=== PATIENT | female | born 1965 | race Caucasian/White ===

== ENCOUNTER 2022-11-07 09:38 | Day surgery (SDC) | payer OTHER ==
[2022-11-07] MEDS ORDERED: Darbepoetin Alfa in Polysorbat 25 MCG/0.4 ML DISP.SYRIN SQ ONE (10:15)
[2022-11-07 15:31] VITALS: BP 105/34; PULSE 77; RESP 20; TEMP 98.2
== END 2022-11-07 10:35 | disposition home or self-care (01) ==
LOC: JONCNONCHE 09:38
PROVIDERS: ATTEND Internal Medicine Hematology & Oncology
PROC: 3E013GC Introduction of Other Therapeutic Substance into Subcutaneous Tissue, Percutaneous Approach (ICD-10-PCS; principal; 2022-11-07)
DX: D64.9 Anemia, unspecified (principal)
CPT/HCPCS: 96372; J0881

== ENCOUNTER 2022-12-08 09:30 | Day surgery (SDC) | payer OTHER ==
[2022-12-08] MEDS ORDERED: Darbepoetin Alfa in Polysorbat 25 MCG/0.4 ML DISP.SYRIN SQ ONE (10:00)
[2022-12-08 16:40] VITALS: BP 114/31; PULSE 78; RESP 18; TEMP 98.2
== END 2022-12-08 10:30 | disposition home or self-care (01) ==
LOC: JONCNONCHE 09:30 → J7W 09:32 → JONCNONCHE 10:30
PROVIDERS: ATTEND Internal Medicine Hematology & Oncology
PROC: 3E013GC Introduction of Other Therapeutic Substance into Subcutaneous Tissue, Percutaneous Approach (ICD-10-PCS; principal; 2022-12-08)
DX: D64.9 Anemia, unspecified (principal); D50.9 Iron deficiency anemia, unspecified
CPT/HCPCS: 96372; J0881

== ENCOUNTER 2023-01-09 08:51 | Day surgery (SDC) | payer OTHER ==
[2023-01-09] MEDS ORDERED: Darbepoetin Alfa in Polysorbat 25 MCG/0.4 ML DISP.SYRIN SQ ONE (09:00)
[2023-01-09 15:55] VITALS: BP 125/65; PULSE 77; RESP 18; TEMP 98.4
== END 2023-01-09 09:35 | disposition home or self-care (01) ==
LOC: JONCNONCHE 08:51 → J7W 08:52 → JONCNONCHE 09:35
PROVIDERS: ATTEND Internal Medicine Hematology & Oncology
PROC: 3E013GC Introduction of Other Therapeutic Substance into Subcutaneous Tissue, Percutaneous Approach (ICD-10-PCS; principal; 2023-01-09)
DX: D50.8 Other iron deficiency anemias (principal)
CPT/HCPCS: 96372; J0881

== ENCOUNTER 2023-02-07 11:28 | Day surgery (SDC) | payer OTHER ==
[~2023-02-07 11:28] MED LIST: Darbepoetin Alfa in Polysorbat 25 MCG/0.4 ML DISP.SYRIN SQ ONE
[2023-02-07 15:23] VITALS: BP 111/54; PULSE 87; RESP 20; TEMP 98.5
== END 2023-02-07 12:15 | disposition home or self-care (01) ==
LOC: JONCNONCHE 11:28 → J7W 11:29 → JONCNONCHE 12:15
PROVIDERS: ATTEND Internal Medicine Hematology & Oncology
PROC: 3E013GC Introduction of Other Therapeutic Substance into Subcutaneous Tissue, Percutaneous Approach (ICD-10-PCS; principal; 2023-02-07)
DX: D64.89 Other specified anemias (principal); Z76.89 Persons encountering health services in other specified circumstances
CPT/HCPCS: 96372; J0881

== ENCOUNTER 2023-03-14 10:06 | Day surgery (SDC) | payer OTHER ==
[2023-03-14] MEDS ORDERED: Darbepoetin Alfa in Polysorbat 25 MCG/0.4 ML DISP.SYRIN SQ ONE (11:00)
[2023-03-14 14:37] VITALS: BP 119/65; PULSE 94; RESP 20; TEMP 98.3
== END 2023-03-14 11:30 | disposition home or self-care (01) ==
LOC: JONCNONCHE 10:06 → J7W 10:20 → JONCNONCHE 11:30
PROVIDERS: ATTEND Internal Medicine Hematology & Oncology
PROC: 3E013GC Introduction of Other Therapeutic Substance into Subcutaneous Tissue, Percutaneous Approach (ICD-10-PCS; principal; 2023-03-14)
DX: D64.9 Anemia, unspecified (principal); Z76.89 Persons encountering health services in other specified circumstances
CPT/HCPCS: 96372; J0881

== ENCOUNTER 2023-04-11 08:51 | Day surgery (SDC) | payer OTHER ==
[2023-04-11] MEDS ORDERED: Darbepoetin Alfa in Polysorbat 25 MCG/0.4 ML DISP.SYRIN SQ ONE (10:15)
[2023-04-11 14:31] VITALS: BP 123/64; PULSE 89; RESP 18; TEMP 98.4
== END 2023-04-11 10:30 | disposition home or self-care (01) ==
LOC: JONCNONCHE 08:51 → J7W 08:52 → JONCNONCHE 10:30
PROVIDERS: ATTEND Internal Medicine Hematology & Oncology
PROC: 3E013GC Introduction of Other Therapeutic Substance into Subcutaneous Tissue, Percutaneous Approach (ICD-10-PCS; principal; 2023-04-11)
DX: D50.9 Iron deficiency anemia, unspecified (principal)
CPT/HCPCS: 96372; J0881

== ENCOUNTER 2023-04-18 09:31 | Day surgery (SDC) | payer OTHER ==
[2023-04-18] MEDS ORDERED: GRANISETRON HCL 1 MG TABLET PO ONE (10:00)
[2023-04-18] MEDS ORDERED: BORTEZOMIB 2.5 MG/ML SUB-Q INJECTION SQ ONE (10:30)
[2023-04-18 10:33] LABS: BASO % 0.6 % (0-2.0); EOS % 1.2 % (0-4.5); HEMATOCRIT 22.4 % (32.4-45.2); HEMOGLOBIN 7.4 GM/dL (10.7-15.3); LYMPH % 30.6 % (8-40); MCH 31.3 pg (25.7-33.7); MCHC 33.2 g/dl (32.0-36.0); MEAN CELL VOLUME 94.3 fl (80-96); MEAN PLT VOLUME 7.4 fl (7.5-11.1); NEUT % 58.6 % (42.8-82.8); PLATELET COUNT 397 10^3/uL (134-434); RBC 2.38 M/mm3 (3.60-5.2); RDW 14.8 % (11.6-15.6); WHITE BLOOD COUNT 5.4 K/mm3 (4.0-10.0)
[2023-04-18 10:50] LABS: POTASSIUM 4.2 mmol/L (3.5-5.1)
[2023-04-18 10:51] LABS: CALCIUM 8.8 mg/dL (8.5-10.1)
[2023-04-18 10:52] LABS: ALBUMIN 2.7 g/dl (3.4-5.0); BLOOD UREA NITROGEN 24.4 mg/dL (7-18)
[2023-04-18 10:54] LABS: BILIRUBIN,DIRECT 0.2 mg/dL (0.0-0.2)
[2023-04-18 10:56] LABS: BILIRUBIN,TOTAL 0.4 mg/dL (0.2-1)
[2023-04-18 17:11] VITALS: BP 106/56; PULSE 99; RESP 18; TEMP 98.2
[2023-04-19 18:12] LABS: FREE KAPPA,SERUM 13.6 mg/L (3.3-19.4)
== END 2023-04-18 12:00 | disposition home or self-care (01) ==
LOC: JONCCHEMO 09:31 → J7W 09:32 → JONCCHEMO 12:00
PROVIDERS: ATTEND Internal Medicine Hematology & Oncology
PROC: 3E033GC Introduction of Other Therapeutic Substance into Peripheral Vein, Percutaneous Approach (ICD-10-PCS; principal; 2023-04-18)
DX: D50.8 Other iron deficiency anemias (principal)
CPT/HCPCS: 36415; 80048; 80076; 82784; 83883; 84155; 84165; 85025; 96365; J9041

== ENCOUNTER 2023-05-02 09:22 | Day surgery (SDC) | payer OTHER ==
[2023-05-02] MEDS ORDERED: BORTEZOMIB 2.5 MG/ML SUB-Q INJECTION SQ ONE (10:00)
[2023-05-02] MEDS ORDERED: GRANISETRON HCL 1 MG TABLET PO ONE (10:00)
[2023-05-02 10:22] LABS: BASO % 0.5 % (0-2.0); EOS % 1.9 % (0-4.5); HEMATOCRIT 20.7 % (32.4-45.2); LYMPH % 25.1 % (8-40); MCH 31.8 pg (25.7-33.7); MCHC 32.5 g/dl (32.0-36.0); MEAN CELL VOLUME 97.9 fl (80-96); MEAN PLT VOLUME 7.4 fl (7.5-11.1); MONO % 9.4 % (3.8-10.2); NEUT % 63.1 % (42.8-82.8); PLATELET COUNT 285 10^3/uL (134-434); RBC 2.11 M/mm3 (3.60-5.2); RDW 15.4 % (11.6-15.6); WHITE BLOOD COUNT 4.5 K/mm3 (4.0-10.0)
[2023-05-02 10:28] LABS: HEMOGLOBIN 6.7 GM/dL (10.7-15.3)
[2023-05-02 10:42] LABS: POTASSIUM 5.7 mmol/L (3.5-5.1)
[2023-05-02 10:44] LABS: ALBUMIN 2.3 g/dl (3.4-5.0); CALCIUM 8.4 mg/dL (8.5-10.1)
[2023-05-02 10:47] LABS: BILIRUBIN,DIRECT 0.1 mg/dL (0.0-0.2); CREATININE 3.3 mg/dL (0.55-1.3)
[2023-05-02 10:49] LABS: BILIRUBIN,TOTAL 0.6 mg/dL (0.2-1); TOT PROT 5.1 g/dl (6.4-8.2)
[2023-05-02] MEDS ORDERED: DEXAMETHASONE 4 MG TABLET (FP) PO ONE (12:15)
[2023-05-02 14:56] VITALS: BP 110/56; PULSE 87; RESP 18; TEMP 98.1
[2023-05-04 07:08] LABS: FREE KAP CHN UR 39.42 mg/L (1.17-86.46)
== END 2023-05-02 13:00 | disposition home or self-care (01) ==
LOC: JONCCHEMO 09:22 → J7W 09:28 → JONCCHEMO 13:00
PROVIDERS: ATTEND Internal Medicine Hematology & Oncology
DX: Z51.11 Encounter for antineoplastic chemotherapy (principal); C90.00 Multiple myeloma not having achieved remission
CPT/HCPCS: 36415; 80048; 80076; 82784; 83883; 84155; 84165; 85025; 96401; J9041

== ENCOUNTER 2023-05-02 12:53 | Inpatient (IN) | payer OTHER ==
[2023-05-02 14:51] LABS: BASO % 0.4 % (0-2.0); EOS % 1.2 % (0-4.5); HEMATOCRIT 22.8 % (32.4-45.2); HEMOGLOBIN 7.5 GM/dL (10.7-15.3); LYMPH % 18.6 % (8-40); MCH 31.5 pg (25.7-33.7); MCHC 32.9 g/dl (32.0-36.0); MEAN CELL VOLUME 95.8 fl (80-96); MEAN PLT VOLUME 7.8 fl (7.5-11.1); MONO % 4.1 % (3.8-10.2); NEUT % 75.7 % (42.8-82.8); PLATELET COUNT 277 10^3/uL (134-434); RBC 2.38 M/mm3 (3.60-5.2); RDW 15.6 % (11.6-15.6); WHITE BLOOD COUNT 3.8 K/mm3 (4.0-10.0)
[2023-05-02 14:56] LABS: INR 1.03 (0.83-1.09)
[2023-05-02 14:59] LABS: ACTIVATED PTT 29.4 SECONDS (25.2-36.5)
[2023-05-02 15:30] LABS: CHLORIDE 109 mmol/L (98-107); SODIUM 138 mmol/L (136-145)
[2023-05-02 15:32] LABS: ALBUMIN 2.4 g/dl (3.4-5.0); CALCIUM 8.4 mg/dL (8.5-10.1); GLUCOSE,RANDOM 98 mg/dL (74-106)
[2023-05-02 15:33] LABS: BLOOD UREA NITROGEN 55.2 mg/dL (7-18); CO2 21 mmol/L (21-32); MAGNESIUM 2.9 mg/dL (1.8-2.4)
[2023-05-02 15:35] LABS: CREATININE 3.5 mg/dL (0.55-1.3); SGPT/ALT 23 U/L (13-61)
[2023-05-02 15:36] LABS: SGOT/AST 26 U/L (15-37)
[2023-05-02 15:37] LABS: BILIRUBIN,TOTAL 0.6 mg/dL (0.2-1); TOT PROT 5.6 g/dl (6.4-8.2)
[2023-05-02 15:38] LABS: ALK PHOS 268 U/L (45-117)
[2023-05-02 15:46] LABS: ANION GAP 8 mmol/L (4-13); POTASSIUM 6.1 mmol/L (3.5-5.1)
[2023-05-02] MEDS ORDERED: CALCIUM GLUCONATE 10% - 1,000 MG/10 ML VIAL IVPUSH ONE ×2 (15:55→18:39)
[2023-05-02] MEDS ORDERED: DEXTROSE 50%-WATER - 25 GM/50 ML VIAL IVPUSH ONE ×3 (15:56→22:24)
[2023-05-02] MEDS ORDERED: INSULIN REGULAR HUMAN 100 UNITS/ML *VIAL IVPUSH ONE ×3 (15:57→22:23)
[2023-05-02] MEDS ORDERED: SODIUM ZIRCONIUM CYCLOSILICATE (LOKELMA) 5 GM PACKET PO ONE ×3 (15:58→23:45)
[2023-05-02 16:52] LABS: EPI CELLS 32 /uL (0-25.1); HYALINE CASTS 3 /uL (0-3.1); URINE APPEARANCE CLEAR; URINE BACTERIA 226 /uL (0-1359); URINE BILIRUBIN NEGATIVE (NEGATIVE); URINE COLOR YELLOW; URINE GLUCOSE (UA) NEGATIVE (NEGATIVE); URINE KETONE NEGATIVE (NEGATIVE); URINE LEUK ESTERASE 2+ (NEGATIVE); URINE NITRITE NEGATIVE (NEGATIVE); URINE PROTEIN 1+ (NEGATIVE); URINE RBC 4 /uL (0-23.9); URINE UROBILINOGEN 0.2 mg/dL (0.2-1.0); URINE WBC 30 /uL (0-25.8)
[2023-05-02] MEDS ORDERED: CEFTRIAXONE 1,000 MG in DEXTROSE 5%-WATER - 50 ML IVPB ONE (18:04)
[2023-05-02 18:25] LABS: CHLORIDE 108 mmol/L (98-107); SODIUM 137 mmol/L (136-145)
[2023-05-02 18:26] LABS: CALCIUM 8.4 mg/dL (8.5-10.1)
[2023-05-02 18:27] LABS: BLOOD UREA NITROGEN 56.3 mg/dL (7-18); CO2 21 mmol/L (21-32); GLUCOSE,RANDOM 119 mg/dL (74-106)
[2023-05-02 18:30] LABS: CREATININE 3.5 mg/dL (0.55-1.3)
[2023-05-02 18:34] LABS: ANION GAP 8 mmol/L (4-13); POTASSIUM 6.9 mmol/L (3.5-5.1)
[2023-05-02] MEDS ORDERED: SODIUM CHLORIDE 1,000 ML IV STA (18:39)
[2023-05-02] MEDS ORDERED: SODIUM ZIRCONIUM CYCLOSILICATE (LOKELMA) 10 GM PACKET ONE (18:44)
[2023-05-02] MEDS ORDERED: SODIUM CHLORIDE 0.45% 1,000 ML IV SCH (18:45)
[2023-05-02] MEDS ORDERED: ALBUTEROL SO4 2.5/IPRATROPIUM 0.5 INH SOL 3 ML VIAL.NEB. NEB ONE ×3 (18:52→22:24)
[2023-05-02] MEDS ORDERED: DEXTROSE 50%-WATER 25 GM/50 ML DISP.SYRIN ONE (18:58)
[2023-05-02 21:22] LABS: URIC ACID 8.5 mg/dL (2.6-7.2)
[2023-05-02 21:23] LABS: IRON SERUM 124 ug/dL (50-175)
[2023-05-02 21:24] LABS: TOTAL IRON BINDING CAPACITY 116 ug/dL (250-450)
[2023-05-02 21:50] LABS: URIC ACID 8.4 mg/dL (2.6-7.2)
[2023-05-02 21:55] LABS: POTASSIUM 5.6 mmol/L (3.5-5.1)
[2023-05-02 21:56] LABS: CALCIUM 8.3 mg/dL (8.5-10.1)
[2023-05-02 22:00] LABS: CREATININE 3.7 mg/dL (0.55-1.3)
[2023-05-02 22:24] LABS: RETICULOCYTES 1.25 % (0.5-1.5)
[2023-05-02] MEDS ORDERED: CEFTRIAXONE 1 GM in DEXTROSE 5%-WATER - 50 ML IVPB ONE (22:45)
[2023-05-02] MEDS ORDERED: ACETAMINOPHEN 325 MG TABLET (FP) PO PRN (22:48)
[2023-05-02] MEDS ORDERED: DEXTROSE 50%-WATER 25 GM/50 ML DISP.SYRIN IVPUSH ONE (23:27)
[2023-05-03 07:32] LABS: BASO % 0.1 % (0-2.0); HEMATOCRIT 26.1 % (32.4-45.2); HEMOGLOBIN 8.8 GM/dL (10.7-15.3); LYMPH % 6.2 % (8-40); MCH 31.4 pg (25.7-33.7); MCHC 33.7 g/dl (32.0-36.0); MEAN CELL VOLUME 93.3 fl (80-96); MEAN PLT VOLUME 8.1 fl (7.5-11.1); MONO % 5.5 % (3.8-10.2); NEUT % 88.2 % (42.8-82.8); PLATELET COUNT 212 10^3/uL (134-434); RBC 2.79 M/mm3 (3.60-5.2); RDW 15.3 % (11.6-15.6); WHITE BLOOD COUNT 6.3 K/mm3 (4.0-10.0)
[2023-05-03 07:50] LABS: POTASSIUM 5.4 mmol/L (3.5-5.1)
[2023-05-03 07:54] LABS: BLOOD UREA NITROGEN 56.8 mg/dL (7-18); CALCIUM 7.7 mg/dL (8.5-10.1)
[2023-05-03 07:55] LABS: MAGNESIUM 2.3 mg/dL (1.8-2.4)
[2023-05-03 07:57] LABS: CREATININE 3.7 mg/dL (0.55-1.3); PHOSPHOROUS 4.5 mg/dL (2.5-4.9)
[2023-05-03 08:00] LABS: BILIRUBIN,TOTAL 1.2 mg/dL (0.2-1); TOT PROT 4.7 g/dl (6.4-8.2)
[2023-05-03] MEDS ORDERED: SODIUM ZIRCONIUM CYCLOSILICATE (LOKELMA) 5 GM PACKET PO SCH (10:00)
[2023-05-03] MEDS ORDERED: FLU VACCINE (FLULAVAL) PF 60 MCG/0.5 ML SYRINGE 2023-2024 IM ONE (10:00)
[2023-05-03] MEDS ORDERED: SODIUM CHLORIDE 1,000 ML IV SCH ×2 (11:45→11:58)
[2023-05-03] MEDS ORDERED: FUROSEMIDE 40 MG/4 ML INJECTABLE VIAL IVPUSH ONE (11:59)
[2023-05-03] MEDS: SODIUM ZIRCONIUM CYCLOSILICATE (LOKELMA) 5 GM PACKET PO SCH (15:48)
[2023-05-04 03:44] LABS: EPI CELLS 11 /uL (0-25.1); HYALINE CASTS 1 /uL (0-3.1); PH,URINE 5.5 (5.0-8.0); URINE APPEARANCE CLEAR; URINE BACTERIA 201 /uL (0-1359); URINE BILIRUBIN NEGATIVE (NEGATIVE); URINE COLOR YELLOW; URINE GLUCOSE (UA) NEGATIVE (NEGATIVE); URINE KETONE NEGATIVE (NEGATIVE); URINE LEUK ESTERASE 1+ (NEGATIVE); URINE NITRITE NEGATIVE (NEGATIVE); URINE PROTEIN NEGATIVE (NEGATIVE); URINE RBC 8 /uL (0-23.9); URINE UROBILINOGEN 0.2 mg/dL (0.2-1.0); URINE WBC 23 /uL (0-25.8)
[2023-05-04 04:07] LABS: CREATININE, URINE RANDOM < 13.0 mg/dL (30-150)
[2023-05-04 08:30] LABS: BASO % 0.3 % (0-2.0); EOS % 0.4 % (0-4.5); HEMATOCRIT 27.9 % (32.4-45.2); HEMOGLOBIN 9.5 GM/dL (10.7-15.3); LYMPH % 13.3 % (8-40); MCH 31.5 pg (25.7-33.7); MEAN CELL VOLUME 92.6 fl (80-96); MEAN PLT VOLUME 7.6 fl (7.5-11.1); MONO % 7.1 % (3.8-10.2); NEUT % 78.9 % (42.8-82.8); PLATELET COUNT 189 10^3/uL (134-434); RBC 3.01 M/mm3 (3.60-5.2); RDW 15.5 % (11.6-15.6); WHITE BLOOD COUNT 6.2 K/mm3 (4.0-10.0)
[2023-05-04 08:53] LABS: POTASSIUM 5.2 mmol/L (3.5-5.1)
[2023-05-04 09:00] LABS: BLOOD UREA NITROGEN 63.7 mg/dL (7-18); CALCIUM 7.8 mg/dL (8.5-10.1); MAGNESIUM 2.2 mg/dL (1.8-2.4)
[2023-05-04 09:03] LABS: PHOSPHOROUS 6.3 mg/dL (2.5-4.9)
[2023-05-04] MEDS: SODIUM ZIRCONIUM CYCLOSILICATE (LOKELMA) 5 GM PACKET PO SCH (09:10)
[2023-05-04] MEDS ORDERED: ALBUTEROL SO4 2.5/IPRATROPIUM 0.5 INH SOL 3 ML VIAL.NEB. NEB ONE (10:15)
[2023-05-04] MEDS ORDERED: FUROSEMIDE 40 MG/4 ML INJECTABLE VIAL IVPUSH ONE (10:30)
[2023-05-04] MEDS: ALBUTEROL SO4 2.5/IPRATROPIUM 0.5 INH SOL 3 ML VIAL.NEB. NEB PRN ×2 (15:40→21:00)
[2023-05-05 07:40] LABS: BASO % 0.3 % (0-2.0); EOS % 0.4 % (0-4.5); HEMATOCRIT 25.1 % (32.4-45.2); HEMOGLOBIN 8.6 GM/dL (10.7-15.3); LYMPH % 12.5 % (8-40); MCH 31.5 pg (25.7-33.7); MCHC 34.1 g/dl (32.0-36.0); MEAN CELL VOLUME 92.6 fl (80-96); MEAN PLT VOLUME 8.2 fl (7.5-11.1); MONO % 11.3 % (3.8-10.2); NEUT % 75.5 % (42.8-82.8); PLATELET COUNT 172 10^3/uL (134-434); RBC 2.71 M/mm3 (3.60-5.2); WHITE BLOOD COUNT 5.3 K/mm3 (4.0-10.0)
[2023-05-05 08:20] LABS: CALCIUM 7.8 mg/dL (8.5-10.1)
[2023-05-05 08:21] LABS: BLOOD UREA NITROGEN 70.9 mg/dL (7-18); MAGNESIUM 2.2 mg/dL (1.8-2.4)
[2023-05-05 08:24] LABS: CREATININE 4.5 mg/dL (0.55-1.3); PHOSPHOROUS 6.6 mg/dL (2.5-4.9)
[2023-05-05] MEDS: SODIUM ZIRCONIUM CYCLOSILICATE (LOKELMA) 5 GM PACKET PO SCH (09:25)
[2023-05-05] MEDS ORDERED: ACETAMINOPHEN 1000 MG/100 ML BAG IVPB PRN (12:02)
[2023-05-05] MEDS ORDERED: FUROSEMIDE 40 MG/4 ML INJECTABLE VIAL IVPUSH ONE (12:55)
[2023-05-05] MEDS ORDERED: ERTAPENEM SODIUM 0.5 GM in SODIUM CHLORIDE 50 ML IVPB SCH (16:00)
[2023-05-05 18:07] LABS: FREE KAPPA,SERUM 19.3 mg/L (3.3-19.4)
[2023-05-05] MEDS: ERTAPENEM SODIUM 0.5 GM in SODIUM CHLORIDE 50 ML IVPB SCH (18:12)
[2023-05-05 23:10] VITALS: BMI 22.2
[2023-05-06 08:11] LABS: BASO % 0.2 % (0-2.0); HEMATOCRIT 25.5 % (32.4-45.2); HEMOGLOBIN 8.5 GM/dL (10.7-15.3); LYMPH % 15.2 % (8-40); MCH 30.9 pg (25.7-33.7); MCHC 33.2 g/dl (32.0-36.0); MEAN CELL VOLUME 92.9 fl (80-96); MEAN PLT VOLUME 8.6 fl (7.5-11.1); MONO % 12.6 % (3.8-10.2); PLATELET COUNT 150 10^3/uL (134-434); RBC 2.74 M/mm3 (3.60-5.2); RDW 14.3 % (11.6-15.6); WHITE BLOOD COUNT 4.7 K/mm3 (4.0-10.0)
[2023-05-06 08:37] LABS: POTASSIUM 4.6 mmol/L (3.5-5.1)
[2023-05-06 08:45] LABS: PHOSPHOROUS 6.4 mg/dL (2.5-4.9)
[2023-05-06 08:46] LABS: BILIRUBIN,TOTAL 0.8 mg/dL (0.2-1); CREATININE 4.4 mg/dL (0.55-1.3); TOT PROT 4.8 g/dl (6.4-8.2)
[2023-05-06] MEDS: SODIUM ZIRCONIUM CYCLOSILICATE (LOKELMA) 5 GM PACKET PO SCH (09:26)
[2023-05-06] MEDS: ERTAPENEM SODIUM 0.5 GM in SODIUM CHLORIDE 50 ML IVPB SCH (09:26)
[2023-05-06] MEDS ORDERED: FUROSEMIDE 40 MG/4 ML INJECTABLE VIAL IVPUSH ONE (14:45)
[2023-05-07 08:59] LABS: BASO % 0.3 % (0-2.0); EOS % 1.8 % (0-4.5); HEMATOCRIT 24.6 % (32.4-45.2); HEMOGLOBIN 8.7 GM/dL (10.7-15.3); LYMPH % 13.6 % (8-40); MCH 32.2 pg (25.7-33.7); MCHC 35.5 g/dl (32.0-36.0); MEAN CELL VOLUME 90.8 fl (80-96); MEAN PLT VOLUME 8.6 fl (7.5-11.1); NEUT % 69.3 % (42.8-82.8); PLATELET COUNT 182 10^3/uL (134-434); RBC 2.71 M/mm3 (3.60-5.2); RDW 14.1 % (11.6-15.6); WHITE BLOOD COUNT 5.4 K/mm3 (4.0-10.0)
[2023-05-07 09:21] LABS: POTASSIUM 3.9 mmol/L (3.5-5.1)
[2023-05-07 09:25] LABS: MAGNESIUM 1.9 mg/dL (1.8-2.4)
[2023-05-07 09:26] LABS: BLOOD UREA NITROGEN 64.3 mg/dL (7-18)
[2023-05-07 09:28] LABS: CREATININE 4.6 mg/dL (0.55-1.3); PHOSPHOROUS 5.9 mg/dL (2.5-4.9)
[2023-05-07 09:30] LABS: BILIRUBIN,TOTAL 0.3 mg/dL (0.2-1); TOT PROT 4.9 g/dl (6.4-8.2)
[2023-05-07] MEDS: SODIUM ZIRCONIUM CYCLOSILICATE (LOKELMA) 5 GM PACKET PO SCH (09:40)
[2023-05-07] MEDS: ERTAPENEM SODIUM 0.5 GM in SODIUM CHLORIDE 50 ML IVPB SCH (15:01)
[2023-05-08 08:16] LABS: BASO % 0.1 % (0-2.0); EOS % 1.2 % (0-4.5); HEMATOCRIT 23.5 % (32.4-45.2); HEMOGLOBIN 8.3 GM/dL (10.7-15.3); LYMPH % 12.8 % (8-40); MCH 31.7 pg (25.7-33.7); MCHC 35.3 g/dl (32.0-36.0); MEAN CELL VOLUME 89.7 fl (80-96); MEAN PLT VOLUME 8.3 fl (7.5-11.1); MONO % 13.5 % (3.8-10.2); NEUT % 72.4 % (42.8-82.8); PLATELET COUNT 184 10^3/uL (134-434); RBC 2.62 M/mm3 (3.60-5.2); RDW 13.9 % (11.6-15.6); WHITE BLOOD COUNT 4.4 K/mm3 (4.0-10.0)
[2023-05-08 08:20] LABS: POTASSIUM 4.1 mmol/L (3.5-5.1)
[2023-05-08 08:23] LABS: BLOOD UREA NITROGEN 63.4 mg/dL (7-18); MAGNESIUM 1.7 mg/dL (1.8-2.4)
[2023-05-08 08:26] LABS: CREATININE 3.8 mg/dL (0.55-1.3); PHOSPHOROUS 5.7 mg/dL (2.5-4.9)
[2023-05-08 08:28] LABS: BILIRUBIN,TOTAL 0.3 mg/dL (0.2-1); TOT PROT 4.7 g/dl (6.4-8.2)
[2023-05-08] MEDS: SODIUM ZIRCONIUM CYCLOSILICATE (LOKELMA) 5 GM PACKET PO SCH (10:13)
[2023-05-08] MEDS: ERTAPENEM SODIUM 0.5 GM in SODIUM CHLORIDE 50 ML IVPB SCH (10:13)
[2023-05-08 16:12] LABS: ATYPICAL pANCA <1:20 titer (Neg:<1:20); C-ANCA <1:20 titer (Neg:<1:20)
[2023-05-09] MEDS ORDERED: SODIUM CHLORIDE 500 ML IV STA (02:53)
[2023-05-09 09:07] LABS: BASO % 0.2 % (0-2.0); EOS % 0.9 % (0-4.5); HEMATOCRIT 22.7 % (32.4-45.2); HEMOGLOBIN 7.8 GM/dL (10.7-15.3); LYMPH % 12.1 % (8-40); MCH 31.5 pg (25.7-33.7); MCHC 34.3 g/dl (32.0-36.0); MEAN CELL VOLUME 91.8 fl (80-96); MEAN PLT VOLUME 8.1 fl (7.5-11.1); MONO % 11.1 % (3.8-10.2); NEUT % 75.7 % (42.8-82.8); PLATELET COUNT 236 10^3/uL (134-434); RBC 2.47 M/mm3 (3.60-5.2); RDW 13.4 % (11.6-15.6); WHITE BLOOD COUNT 4.4 K/mm3 (4.0-10.0)
[2023-05-09 09:10] LABS: INR 1.01 (0.83-1.09); PROTHROMBIN TIME (PATIENT) 11.7 SEC (9.7-13.0)
[2023-05-09 09:22] LABS: POTASSIUM 3.8 mmol/L (3.5-5.1)
[2023-05-09 09:26] LABS: ALBUMIN 2.1 g/dl (3.4-5.0); BLOOD UREA NITROGEN 64.3 mg/dL (7-18); CALCIUM 8.1 mg/dL (8.5-10.1); MAGNESIUM 1.9 mg/dL (1.8-2.4)
[2023-05-09 09:29] LABS: CREATININE 3.7 mg/dL (0.55-1.3); PHOSPHOROUS 5.7 mg/dL (2.5-4.9)
[2023-05-09 09:31] LABS: BILIRUBIN,TOTAL 0.4 mg/dL (0.2-1); TOT PROT 5.1 g/dl (6.4-8.2)
[2023-05-09] MEDS: SODIUM ZIRCONIUM CYCLOSILICATE (LOKELMA) 5 GM PACKET PO SCH (09:49)
[2023-05-09] MEDS: ERTAPENEM SODIUM 0.5 GM in SODIUM CHLORIDE 50 ML IVPB SCH (09:50)
[2023-05-09] MEDS ORDERED: DEXAMETHASONE 4 MG TABLET (FP) PO ONE (15:00)
[2023-05-09] MEDS ORDERED: CYCLOPHOSPHAMIDE 25 MG CAPSULE PO ONE (15:00)
[2023-05-09] MEDS ORDERED: PANTOPRAZOLE 40 MG TABLET PO ONE (16:32)
[2023-05-09] MEDS: SODIUM BICARBONATE 650 MG TABLET PO SCH (21:24)
[2023-05-10 09:20] LABS: HEMATOCRIT 22.2 % (32.4-45.2); HEMOGLOBIN 7.4 GM/dL (10.7-15.3); MCHC 33.5 g/dl (32.0-36.0); MEAN CELL VOLUME 92.3 fl (80-96); MEAN PLT VOLUME 7.7 fl (7.5-11.1); PLATELET COUNT 260 10^3/uL (134-434); RDW 13.8 % (11.6-15.6); WHITE BLOOD COUNT 3.9 K/mm3 (4.0-10.0)
[2023-05-10] MEDS: SODIUM BICARBONATE 650 MG TABLET PO SCH ×2 (09:27→22:21)
[2023-05-10 09:48] LABS: POTASSIUM 3.5 mmol/L (3.5-5.1)
[2023-05-10 09:51] LABS: BLOOD UREA NITROGEN 61.8 mg/dL (7-18); CALCIUM 8.2 mg/dL (8.5-10.1)
[2023-05-10 09:52] LABS: ALBUMIN 2.2 g/dl (3.4-5.0); MAGNESIUM 1.9 mg/dL (1.8-2.4)
[2023-05-10 09:56] LABS: CREATININE 3.3 mg/dL (0.55-1.3); PHOSPHOROUS 5.1 mg/dL (2.5-4.9)
[2023-05-10 09:57] LABS: BILIRUBIN,TOTAL 0.3 mg/dL (0.2-1); TOT PROT 5.2 g/dl (6.4-8.2)
[2023-05-10 10:03] LABS: ANISOCYTOSIS 0; HELMET CELLS 0; HOWELL-JOLLY BODIES 0; MACROCYTOSIS 0; OVALOCYTE 0; ROULEAU 0; SICKELED CELLS 0; TARGET CELLS 0; TEAR DROP CELLS 0; TOXIC GRANULATION 0
[2023-05-10] MEDS: ERTAPENEM SODIUM 0.5 GM in SODIUM CHLORIDE 50 ML IVPB SCH (10:53)
[2023-05-10] MEDS ORDERED: FUROSEMIDE 40 MG TABLET (FP) PO ONE (11:30)
[2023-05-11 08:51] LABS: POTASSIUM 3.1 mmol/L (3.5-5.1)
[2023-05-11 08:59] LABS: CALCIUM 7.9 mg/dL (8.5-10.1)
[2023-05-11 09:00] LABS: ALBUMIN 2.2 g/dl (3.4-5.0); MAGNESIUM 2.1 mg/dL (1.8-2.4)
[2023-05-11 09:03] LABS: BASO % 0.2 % (0-2.0); HEMATOCRIT 20.3 % (32.4-45.2); HEMOGLOBIN 7.1 GM/dL (10.7-15.3); LYMPH % 8.2 % (8-40); MCH 31.7 pg (25.7-33.7); MEAN CELL VOLUME 90.3 fl (80-96); MEAN PLT VOLUME 7.5 fl (7.5-11.1); MONO % 5.7 % (3.8-10.2); NEUT % 85.9 % (42.8-82.8); PLATELET COUNT 303 10^3/uL (134-434); RBC 2.25 M/mm3 (3.60-5.2); RDW 13.7 % (11.6-15.6); WHITE BLOOD COUNT 7.9 K/mm3 (4.0-10.0)
[2023-05-11 09:04] LABS: BILIRUBIN,TOTAL 0.2 mg/dL (0.2-1); CREATININE 2.9 mg/dL (0.55-1.3); TOT PROT 5.2 g/dl (6.4-8.2)
[2023-05-11 09:07] LABS: PHOSPHOROUS 4.7 mg/dL (2.5-4.9)
[2023-05-11] MEDS: POTASSIUM CHLORIDE ORAL LIQUID 20 MEQ/15 ML PO SCH ×2 (10:37→21:54)
[2023-05-11] MEDS: ERTAPENEM SODIUM 0.5 GM in SODIUM CHLORIDE 50 ML IVPB SCH (10:37)
[2023-05-11] MEDS: SODIUM BICARBONATE 650 MG TABLET PO SCH ×2 (10:37→21:54)
[2023-05-12 09:37] LABS: BASO % 0.1 % (0-2.0); EOS % 0.7 % (0-4.5); HEMATOCRIT 21.5 % (32.4-45.2); HEMOGLOBIN 7.5 GM/dL (10.7-15.3); LYMPH % 10.1 % (8-40); MCH 31.9 pg (25.7-33.7); MCHC 34.8 g/dl (32.0-36.0); MEAN CELL VOLUME 91.7 fl (80-96); MEAN PLT VOLUME 7.1 fl (7.5-11.1); NEUT % 82.1 % (42.8-82.8); PLATELET COUNT 353 10^3/uL (134-434); RBC 2.35 M/mm3 (3.60-5.2); RDW 14.1 % (11.6-15.6); WHITE BLOOD COUNT 6.7 K/mm3 (4.0-10.0)
[2023-05-12 10:01] LABS: POTASSIUM 4.4 mmol/L (3.5-5.1)
[2023-05-12] MEDS: SODIUM BICARBONATE 650 MG TABLET PO SCH ×2 (10:01→22:24)
[2023-05-12] MEDS: ERTAPENEM SODIUM 0.5 GM in SODIUM CHLORIDE 50 ML IVPB SCH (10:01)
[2023-05-12 10:14] LABS: BLOOD UREA NITROGEN 74.1 mg/dL (7-18)
[2023-05-12 10:27] LABS: ALBUMIN 2.2 g/dl (3.4-5.0); CALCIUM 8.3 mg/dL (8.5-10.1); MAGNESIUM 2.1 mg/dL (1.8-2.4)
[2023-05-12 10:30] LABS: CREATININE 2.4 mg/dL (0.55-1.3); PHOSPHOROUS 3.8 mg/dL (2.5-4.9)
[2023-05-12 10:31] LABS: TOT PROT 5.1 g/dl (6.4-8.2)
[2023-05-12 10:42] LABS: BILIRUBIN,TOTAL 0.3 mg/dL (0.2-1)
[2023-05-13 07:53] LABS: BASO % 0.3 % (0-2.0); EOS % 1.7 % (0-4.5); HEMATOCRIT 22.4 % (32.4-45.2); HEMOGLOBIN 7.6 GM/dL (10.7-15.3); LYMPH % 12.6 % (8-40); MCH 31.8 pg (25.7-33.7); MCHC 33.9 g/dl (32.0-36.0); MEAN CELL VOLUME 93.6 fl (80-96); MEAN PLT VOLUME 7.1 fl (7.5-11.1); MONO % 6.7 % (3.8-10.2); NEUT % 78.7 % (42.8-82.8); PLATELET COUNT 352 10^3/uL (134-434); RBC 2.39 M/mm3 (3.60-5.2); RDW 14.4 % (11.6-15.6); WHITE BLOOD COUNT 7.3 K/mm3 (4.0-10.0)
[2023-05-13 08:09] LABS: POTASSIUM 4.4 mmol/L (3.5-5.1)
[2023-05-13 08:12] LABS: CALCIUM 8.5 mg/dL (8.5-10.1)
[2023-05-13 08:13] LABS: ALBUMIN 2.2 g/dl (3.4-5.0); BLOOD UREA NITROGEN 69.1 mg/dL (7-18); MAGNESIUM 1.9 mg/dL (1.8-2.4)
[2023-05-13 08:16] LABS: CREATININE 2.3 mg/dL (0.55-1.3); PHOSPHOROUS 3.8 mg/dL (2.5-4.9)
[2023-05-13 08:18] LABS: TOT PROT 5.2 g/dl (6.4-8.2)
[2023-05-13 08:22] LABS: BILIRUBIN,TOTAL 0.8 mg/dL (0.2-1)
[2023-05-13] MEDS: SODIUM BICARBONATE 650 MG TABLET PO SCH ×2 (10:42→22:45)
[2023-05-13] MEDS: ERTAPENEM SODIUM 0.5 GM in SODIUM CHLORIDE 50 ML IVPB SCH (10:50)
[2023-05-13] MEDS ORDERED: ARTIFICIAL TEARS OPHTHALMIC DROPS OU PRN (13:35)
[2023-05-14 08:14] LABS: POTASSIUM 4.2 mmol/L (3.5-5.1)
[2023-05-14 08:20] LABS: BASO % 0.3 % (0-2.0); HEMATOCRIT 29.8 % (32.4-45.2); LYMPH % 10.5 % (8-40); MCH 31.2 pg (25.7-33.7); MCHC 33.4 g/dl (32.0-36.0); MEAN CELL VOLUME 93.3 fl (80-96); MEAN PLT VOLUME 7.2 fl (7.5-11.1); MONO % 5.8 % (3.8-10.2); NEUT % 81.4 % (42.8-82.8); PLATELET COUNT 374 10^3/uL (134-434); RBC 3.19 M/mm3 (3.60-5.2); RDW 14.1 % (11.6-15.6); WHITE BLOOD COUNT 8.1 K/mm3 (4.0-10.0)
[2023-05-14 08:24] LABS: ALBUMIN 2.4 g/dl (3.4-5.0); BLOOD UREA NITROGEN 53.7 mg/dL (7-18); CALCIUM 8.8 mg/dL (8.5-10.1); MAGNESIUM 1.9 mg/dL (1.8-2.4)
[2023-05-14 08:27] LABS: PHOSPHOROUS 3.9 mg/dL (2.5-4.9)
[2023-05-14 08:28] LABS: CREATININE 1.7 mg/dL (0.55-1.3)
[2023-05-14 08:29] LABS: BILIRUBIN,TOTAL 0.5 mg/dL (0.2-1); TOT PROT 5.5 g/dl (6.4-8.2)
[2023-05-14] MEDS: SODIUM BICARBONATE 650 MG TABLET PO SCH ×2 (10:51→21:25)
[2023-05-14] MEDS: ERTAPENEM SODIUM 0.5 GM in SODIUM CHLORIDE 50 ML IVPB SCH (10:51)
[2023-05-15 01:10] VITALS: RESP 18
[2023-05-15 08:43] LABS: BASO % 0.5 % (0-2.0); HEMOGLOBIN 9.8 GM/dL (10.7-15.3); LYMPH % 11.1 % (8-40); MCHC 34.9 g/dl (32.0-36.0); MEAN CELL VOLUME 91.8 fl (80-96); MEAN PLT VOLUME 7.2 fl (7.5-11.1); MONO % 7.5 % (3.8-10.2); NEUT % 78.9 % (42.8-82.8); PLATELET COUNT 356 10^3/uL (134-434); RBC 3.05 M/mm3 (3.60-5.2); RDW 13.9 % (11.6-15.6); WHITE BLOOD COUNT 7.2 K/mm3 (4.0-10.0)
[2023-05-15 08:59] LABS: POTASSIUM 4.3 mmol/L (3.5-5.1)
[2023-05-15 09:03] LABS: BLOOD UREA NITROGEN 46.8 mg/dL (7-18); CALCIUM 8.1 mg/dL (8.5-10.1); MAGNESIUM 1.8 mg/dL (1.8-2.4)
[2023-05-15 09:04] LABS: ALBUMIN 2.4 g/dl (3.4-5.0)
[2023-05-15 09:06] LABS: CREATININE 1.5 mg/dL (0.55-1.3); PHOSPHOROUS 3.7 mg/dL (2.5-4.9)
[2023-05-15 09:07] LABS: TOT PROT 5.5 g/dl (6.4-8.2)
[2023-05-15 09:08] LABS: BILIRUBIN,TOTAL 0.5 mg/dL (0.2-1)
[2023-05-15 14:09] VITALS: BP 133/66; PULSE 86; TEMP 97.6
== END 2023-05-15 16:23 | disposition home health service (06) | DRG 691 ==
LOC: JER 12:53 → JERBED 16:34 → J4W 19:58 → J4S 05-05 20:01
PROVIDERS: ADMIT Internal Medicine; ATTEND Internal Medicine
PROC: 30233N1 Transfusion of Nonautologous Red Blood Cells into Peripheral Vein, Percutaneous Approach (ICD-10-PCS; principal; 2023-05-02)
DX: C90.00 Multiple myeloma not having achieved remission (principal); N17.9 Acute kidney failure, unspecified; N08 Glomerular disorders in diseases classified elsewhere; I50.31 Acute diastolic (congestive) heart failure; E87.1 Hypo-osmolality and hyponatremia; E87.5 Hyperkalemia; D64.9 Anemia, unspecified; D72.819 Decreased white blood cell count, unspecified; N39.0 Urinary tract infection, site not specified; Z68.1 Body mass index [BMI] 19.9 or less, adult; Z16.12 Extended spectrum beta lactamase (ESBL) resistance; B96.20 Unspecified Escherichia coli [E. coli] as the cause of diseases classified elsewhere; E87.70 Fluid overload, unspecified
CPT/HCPCS: 0241U-QW; 36415; 36430; 70450-TC; 71045-TC-FY; 71046-TC-FY; 73502-TC-LT-FY; 76775-TC; 76856-TC; 80048; 80053; 81003; 82436; 82550; 82570; 82728; 83010; 83516; 83520; 83540; 83550; 83615; 83735; 83883; 83935; 84100; 84133; 84300; 84443; 84466; 84484; 84550; 85025; 85045; 85610; 85730; 86038; 86256; 86850; 86900; 86901; 86922; 87040; 87086; 87186; 90686; 93005; 93010; 93306-TC; 94010; 94640; 94761; 97116-GP; 97161-GP; 99285-25; G0008; P9058

== ENCOUNTER 2023-05-16 10:06 | Day surgery (SDC) | payer OTHER ==
[~2023-05-16 10:06] MED LIST changes: +BORTEZOMIB 2.5 MG/ML SUB-Q INJECTION SQ ONE; -Darbepoetin Alfa in Polysorbat 25 MCG/0.4 ML DISP.SYRIN SQ ONE; +GRANISETRON HCL 1 MG TABLET PO ONE
[2023-05-16 11:46] LABS: BASO % 0.8 % (0-2.0); EOS % 2.1 % (0-4.5); HEMATOCRIT 30.1 % (32.4-45.2); HEMOGLOBIN 10.2 GM/dL (10.7-15.3); LYMPH % 14.3 % (8-40); MCH 31.4 pg (25.7-33.7); MCHC 33.9 g/dl (32.0-36.0); MEAN CELL VOLUME 92.6 fl (80-96); MEAN PLT VOLUME 7.1 fl (7.5-11.1); MONO % 9.2 % (3.8-10.2); NEUT % 73.6 % (42.8-82.8); PLATELET COUNT 382 10^3/uL (134-434); RBC 3.25 M/mm3 (3.60-5.2); RDW 13.8 % (11.6-15.6); WHITE BLOOD COUNT 6.7 K/mm3 (4.0-10.0)
[2023-05-16 11:52] LABS: POTASSIUM 3.9 mmol/L (3.5-5.1)
[2023-05-16 11:53] LABS: CALCIUM 8.8 mg/dL (8.5-10.1)
[2023-05-16 11:54] LABS: ALBUMIN 2.8 g/dl (3.4-5.0); BLOOD UREA NITROGEN 39.1 mg/dL (7-18)
[2023-05-16 11:56] LABS: BILIRUBIN,DIRECT 0.1 mg/dL (0.0-0.2)
[2023-05-16 11:57] LABS: CREATININE 1.4 mg/dL (0.55-1.3)
[2023-05-16 11:58] LABS: BILIRUBIN,TOTAL 0.8 mg/dL (0.2-1); TOT PROT 6.1 g/dl (6.4-8.2)
[2023-05-16] MEDS ORDERED: DEXAMETHASONE 4 MG TABLET (FP) PO ONE (12:15)
[2023-05-16 15:32] VITALS: BP 144/73; PULSE 92; RESP 20; TEMP 98.3
[2023-05-17 18:09] LABS: FREE KAPPA,SERUM 24.1 mg/L (3.3-19.4)
== END 2023-05-16 13:45 | disposition home or self-care (01) ==
LOC: JONCCHEMO 10:06 → J7W 10:09 → JONCCHEMO 13:45
PROVIDERS: ATTEND Internal Medicine Hematology & Oncology
DX: Z51.11 Encounter for antineoplastic chemotherapy (principal); C90.00 Multiple myeloma not having achieved remission
CPT/HCPCS: 36415; 80048; 80076; 82784; 83883; 84155; 84165; 85025; 96401; J9041

== ENCOUNTER 2023-05-30 09:27 | Day surgery (SDC) | payer OTHER ==
[2023-05-30] MEDS ORDERED: DEXAMETHASONE 4 MG TABLET (FP) PO ONE (10:00)
[2023-05-30] MEDS ORDERED: GRANISETRON HCL 1 MG TABLET PO ONE (10:00)
[2023-05-30 10:01] LABS: EOS % 2.1 % (0-4.5); HEMATOCRIT 27.5 % (32.4-45.2); HEMOGLOBIN 9.1 GM/dL (10.7-15.3); LYMPH % 17.3 % (8-40); MCH 31.5 pg (25.7-33.7); MCHC 33.1 g/dl (32.0-36.0); MEAN PLT VOLUME 7.5 fl (7.5-11.1); MONO % 10.1 % (3.8-10.2); NEUT % 69.5 % (42.8-82.8); PLATELET COUNT 286 10^3/uL (134-434); RBC 2.89 M/mm3 (3.60-5.2); RDW 13.8 % (11.6-15.6); WHITE BLOOD COUNT 6.3 K/mm3 (4.0-10.0)
[2023-05-30 10:19] LABS: POTASSIUM 5.2 mmol/L (3.5-5.1)
[2023-05-30 10:21] LABS: ALBUMIN 3.2 g/dl (3.4-5.0); BLOOD UREA NITROGEN 26.9 mg/dL (7-18); CALCIUM 8.4 mg/dL (8.5-10.1); GAMMA GLUTAMYL TRANSPEPTIDASE 30 U/L (5-85)
[2023-05-30 10:23] LABS: BILIRUBIN,DIRECT 0.1 mg/dL (0.0-0.2); CHOLESTEROL 133 mg/dL (50-200)
[2023-05-30 10:24] LABS: CREATININE 1.1 mg/dL (0.55-1.3)
[2023-05-30 10:25] LABS: BILIRUBIN,TOTAL 0.3 mg/dL (0.2-1); LDL CHOLESTEROL (ONLY SJRH) 57 mg/dL (5-100); TOT PROT 6.9 g/dl (6.4-8.2)
[2023-05-30 10:26] LABS: HDL CHOLESTEROL 53 mg/dL (40-60)
[2023-05-30] MEDS ORDERED: BORTEZOMIB 2.5 MG/ML SUB-Q INJECTION SQ ONE (10:30)
[2023-05-30 15:53] VITALS: BP 128/81; PULSE 82; RESP 18; TEMP 98.4
[2023-06-05 22:05] LABS: ALPHA 2 MACROGLOBULINS,QN 341 mg/dL (110-276); ALT(SGPT)P5P 15 IU/L (0-40); APOLIPOPROTEIN A-1. 149 mg/dL (116-209); CHOLESTEROL TOTAL 137 mg/dL (100-199); FIBROSIS SCORE- 0.12 (0.00-0.21); GLUCOSE SERUM 112 mg/dL (70-99); HEIGHT. 48 in (.); WEIGHT. 98 LBS (.)
== END 2023-05-30 11:25 | disposition home or self-care (01) ==
LOC: JONCCHEMO 09:27 → J7W 09:28 → JONCCHEMO 11:25
PROVIDERS: ATTEND Internal Medicine Hematology & Oncology
DX: Z12.11 Encounter for screening for malignant neoplasm of colon (principal); C90.00 Multiple myeloma not having achieved remission
CPT/HCPCS: 36415; 80048; 80061; 80076; 82784; 82977; 83036; 85025; 96401; J9041

== ENCOUNTER 2023-06-13 09:23 | Day surgery (SDC) | payer OTHER ==
[2023-06-13] MEDS ORDERED: DEXAMETHASONE 4 MG TABLET (FP) PO ONE (10:00)
[2023-06-13] MEDS ORDERED: GRANISETRON HCL 1 MG TABLET PO ONE (10:00)
[2023-06-13 10:09] LABS: HEMOGLOBIN 9.1 GM/dL (10.7-15.3); MCH 31.8 pg (25.7-33.7); MCHC 33.6 g/dl (32.0-36.0); MEAN CELL VOLUME 94.5 fl (80-96); MEAN PLT VOLUME 7.1 fl (7.5-11.1); PLATELET COUNT 282 10^3/uL (134-434); RBC 2.86 M/mm3 (3.60-5.2); RDW 13.9 % (11.6-15.6); WHITE BLOOD COUNT 13.1 K/mm3 (4.0-10.0)
[2023-06-13 10:30] LABS: POTASSIUM 4.6 mmol/L (3.5-5.1)
[2023-06-13] MEDS ORDERED: BORTEZOMIB 2.5 MG/ML SUB-Q INJECTION SQ ONE (10:30)
[2023-06-13 10:37] LABS: ALBUMIN 2.9 g/dl (3.4-5.0); BLOOD UREA NITROGEN 21.5 mg/dL (7-18); CALCIUM 8.6 mg/dL (8.5-10.1)
[2023-06-13 10:40] LABS: CREATININE 0.8 mg/dL (0.55-1.3)
[2023-06-13 10:41] LABS: BILIRUBIN,DIRECT 0.1 mg/dL (0.0-0.2)
[2023-06-13 10:42] LABS: BILIRUBIN,TOTAL 0.3 mg/dL (0.2-1); TOT PROT 6.8 g/dl (6.4-8.2)
[2023-06-13 11:03] LABS: ANISOCYTOSIS 0; MACROCYTOSIS 0
[2023-06-13 15:49] VITALS: BP 138/62; PULSE 90; RESP 18; TEMP 98.1
[2023-06-15 16:08] LABS: FREE KAPPA,SERUM 23.6 mg/L (3.3-19.4)
== END 2023-06-13 12:05 | disposition home or self-care (01) ==
LOC: JONCCHEMO 09:23 → J7W 09:24 → JONCCHEMO 12:05
PROVIDERS: ATTEND Internal Medicine Hematology & Oncology
DX: Z51.11 Encounter for antineoplastic chemotherapy (principal); C90.00 Multiple myeloma not having achieved remission
CPT/HCPCS: 36415; 80048; 80076; 82784; 83883; 84155; 84165; 85025; 96401; J9041

== ENCOUNTER 2023-06-27 10:32 | Day surgery (SDC) | payer OTHER ==
[~2023-06-27 10:32] MED LIST changes: +DEXAMETHASONE 4 MG TABLET (FP) PO ONE
[2023-06-27 11:43] LABS: HEMATOCRIT 23.7 % (32.4-45.2); MCH 32.1 pg (25.7-33.7); MCHC 33.9 g/dl (32.0-36.0); MEAN CELL VOLUME 94.8 fl (80-96); MEAN PLT VOLUME 7.4 fl (7.5-11.1); PLATELET COUNT 231 10^3/uL (134-434); RBC 2.49 M/mm3 (3.60-5.2); RDW 14.1 % (11.6-15.6); WHITE BLOOD COUNT 7.6 K/mm3 (4.0-10.0)
[2023-06-27 12:04] LABS: POTASSIUM 5.1 mmol/L (3.5-5.1)
[2023-06-27 12:07] LABS: BLOOD UREA NITROGEN 21.3 mg/dL (7-18); CALCIUM 9.1 mg/dL (8.5-10.1)
[2023-06-27 12:10] LABS: BILIRUBIN,DIRECT 0.1 mg/dL (0.0-0.2)
[2023-06-27 12:11] LABS: CREATININE 0.8 mg/dL (0.55-1.3)
[2023-06-27 12:12] LABS: BILIRUBIN,TOTAL 0.2 mg/dL (0.2-1); TOT PROT 6.7 g/dl (6.4-8.2)
[2023-06-27 12:49] LABS: ANISOCYTOSIS 1+; MACROCYTOSIS 0; OVALOCYTE 1+
[2023-06-27 17:00] VITALS: BP 125/56; PULSE 72; RESP 18; TEMP 97.9
[2023-06-30 16:09] LABS: FREE KAPPA,SERUM 10.6 mg/L (3.3-19.4)
== END 2023-06-27 13:30 | disposition home or self-care (01) ==
LOC: JONCCHEMO 10:32 → J7W 10:34 → JONCCHEMO 13:30
PROVIDERS: ATTEND Internal Medicine Hematology & Oncology
DX: Z51.11 Encounter for antineoplastic chemotherapy (principal); C90.00 Multiple myeloma not having achieved remission; E85.81 Light chain (AL) amyloidosis; D47.2 Monoclonal gammopathy
CPT/HCPCS: 36415; 80048; 80076; 82784; 83883; 84155; 84165; 85025; 96401; J9041

== ENCOUNTER 2023-07-11 09:46 | Day surgery (SDC) | payer OTHER ==
[~2023-07-11 09:46] MED LIST changes: +ACETAMINOPHEN 325 MG TABLET (FP) PO ONE; -BORTEZOMIB 2.5 MG/ML SUB-Q INJECTION SQ ONE; -DEXAMETHASONE 4 MG TABLET (FP) PO ONE; +DEXAMETHASONE SODIUM PHOSPHATE 40 MG, DIPHENHYDRAMINE 50 MG in SODIUM CHLORIDE 100 ML IVPB ONE; -GRANISETRON HCL 1 MG TABLET PO ONE; +MONTELUKAST NA 10 MG TABLET PO ONE
[2023-07-11] MEDS ORDERED: DARATUMUMAB-HYALURONIDASE-FIHJ (FASPRO) 15 ML VIAL SQ ONE (10:00)
[2023-07-11] MEDS ORDERED: BORTEZOMIB 2.5 MG/ML SUB-Q INJECTION SQ ONE (10:15)
[2023-07-11 10:49] LABS: HEMATOCRIT 21.1 % (32.4-45.2)
[2023-07-11 10:50] LABS: BASO % 0.4 % (0-2.0); EOS % 4.9 % (0-4.5); LYMPH % 22.8 % (8-40); MCH 31.4 pg (25.7-33.7); MCHC 32.9 g/dl (32.0-36.0); MEAN CELL VOLUME 95.6 fl (80-96); MEAN PLT VOLUME 8.3 fl (7.5-11.1); NEUT % 57.9 % (42.8-82.8); PLATELET COUNT 177 10^3/uL (134-434); RDW 14.7 % (11.6-15.6)
[2023-07-11 10:55] LABS: HEMOGLOBIN 6.9 GM/dL (10.7-15.3)
[2023-07-11 11:04] LABS: CALCIUM 9.2 mg/dL (8.5-10.1)
[2023-07-11 11:07] LABS: BILIRUBIN,DIRECT 0.1 mg/dL (0.0-0.2)
[2023-07-11 11:08] LABS: BLOOD UREA NITROGEN 18.8 mg/dL (7-18); CREATININE 0.9 mg/dL (0.55-1.3)
[2023-07-11 11:09] LABS: TOT PROT 6.4 g/dl (6.4-8.2)
[2023-07-11 11:15] LABS: BILIRUBIN,TOTAL 0.3 mg/dL (0.2-1)
[2023-07-11 17:21] VITALS: RESP 18; TEMP 98.3
[2023-07-11 17:26] VITALS: BP 120/46; PULSE 81
== END 2023-07-11 15:30 | disposition home or self-care (01) ==
LOC: JONCCHEMO 09:46 → J7W 09:47 → JONCCHEMO 15:30
PROVIDERS: ATTEND Internal Medicine Hematology & Oncology
PROC: 3E01305 Introduction of Other Antineoplastic into Subcutaneous Tissue, Percutaneous Approach (ICD-10-PCS; principal; 2023-07-11)
PROC: 3E01305 Introduction of Other Antineoplastic into Subcutaneous Tissue, Percutaneous Approach (ICD-10-PCS; 2023-07-11)
PROC: 3E033GC Introduction of Other Therapeutic Substance into Peripheral Vein, Percutaneous Approach (ICD-10-PCS; 2023-07-11)
DX: Z51.11 Encounter for antineoplastic chemotherapy (principal); C90.00 Multiple myeloma not having achieved remission; E85.81 Light chain (AL) amyloidosis; D47.2 Monoclonal gammopathy
CPT/HCPCS: 36415; 80048; 80076; 82784; 83883; 84155; 84165; 85025; 86850; 86900; 86901; 96365; 96401; J9041; J9144

== ENCOUNTER 2023-07-12 08:30 | Day surgery (SDC) | payer OTHER ==
[2023-07-12 15:37] VITALS: RESP 20
[2023-07-12 16:52] VITALS: BP 121/62; PULSE 85; TEMP 98.4
== END 2023-07-12 16:50 | disposition home or self-care (01) ==
LOC: J7W 08:30 → JONCBLOOD 08:30
PROVIDERS: ATTEND Internal Medicine Hematology & Oncology
PROC: 30233N1 Transfusion of Nonautologous Red Blood Cells into Peripheral Vein, Percutaneous Approach (ICD-10-PCS; principal; 2023-07-12)
DX: C90.00 Multiple myeloma not having achieved remission (principal)
CPT/HCPCS: 36430; 86850; 86870; 86900; 86901; 86922; P9058

== ENCOUNTER 2023-07-19 09:26 | Day surgery (SDC) | payer OTHER ==
[~2023-07-19 09:26] MED LIST changes: +BORTEZOMIB 2.5 MG/ML SUB-Q INJECTION SQ ONE; +DARATUMUMAB-HYALURONIDASE-FIHJ (FASPRO) 15 ML VIAL SQ ONE; -MONTELUKAST NA 10 MG TABLET PO ONE
[2023-07-19] MEDS ORDERED: ACETAMINOPHEN 325 MG TABLET (FP) PO ONE (09:30)
[2023-07-19] MEDS ORDERED: DEXAMETHASONE SODIUM PHOSPHATE 40 MG, DIPHENHYDRAMINE 50 MG in SODIUM CHLORIDE 100 ML IVPB ONE (09:30)
[2023-07-19] MEDS ORDERED: DARATUMUMAB-HYALURONIDASE-FIHJ (FASPRO) 15 ML VIAL SQ ONE (10:00)
[2023-07-19 10:12] LABS: BASO % 0.1 % (0-2.0); EOS % 3.4 % (0-4.5); HEMATOCRIT 22.7 % (32.4-45.2); HEMOGLOBIN 7.8 GM/dL (10.7-15.3); LYMPH % 19.8 % (8-40); MCH 31.8 pg (25.7-33.7); MCHC 34.4 g/dl (32.0-36.0); MEAN CELL VOLUME 92.6 fl (80-96); MEAN PLT VOLUME 8.7 fl (7.5-11.1); MONO % 13.4 % (3.8-10.2); NEUT % 63.3 % (42.8-82.8); PLATELET COUNT 129 10^3/uL (134-434); RBC 2.45 M/mm3 (3.60-5.2); RDW 14.3 % (11.6-15.6); WHITE BLOOD COUNT 2.4 K/mm3 (4.0-10.0)
[2023-07-19] MEDS ORDERED: BORTEZOMIB 2.5 MG/ML SUB-Q INJECTION SQ ONE (10:15)
[2023-07-19 10:34] LABS: POTASSIUM 3.8 mmol/L (3.5-5.1)
[2023-07-19 10:35] LABS: CALCIUM 8.4 mg/dL (8.5-10.1)
[2023-07-19 10:36] LABS: BLOOD UREA NITROGEN 19.4 mg/dL (7-18)
[2023-07-19 10:39] LABS: CREATININE 0.6 mg/dL (0.55-1.3)
[2023-07-19 11:59] LABS: BILIRUBIN,DIRECT 0.1 mg/dL (0.0-0.2)
[2023-07-19 12:01] LABS: BILIRUBIN,TOTAL 0.3 mg/dL (0.2-1); TOT PROT 6.2 g/dl (6.4-8.2)
[2023-07-19 15:45] VITALS: TEMP 98.2
[2023-07-19 15:48] VITALS: BP 130/46; PULSE 76; RESP 18
== END 2023-07-19 14:00 | disposition home or self-care (01) ==
LOC: JONCCHEMO 09:26 → J7W 09:29 → JONCCHEMO 14:00
PROVIDERS: ATTEND Internal Medicine Hematology & Oncology
PROC: 3E01305 Introduction of Other Antineoplastic into Subcutaneous Tissue, Percutaneous Approach (ICD-10-PCS; principal; 2023-07-19)
PROC: 3E01305 Introduction of Other Antineoplastic into Subcutaneous Tissue, Percutaneous Approach (ICD-10-PCS; 2023-07-19)
PROC: 3E033GC Introduction of Other Therapeutic Substance into Peripheral Vein, Percutaneous Approach (ICD-10-PCS; 2023-07-19)
DX: Z51.11 Encounter for antineoplastic chemotherapy (principal); C90.00 Multiple myeloma not having achieved remission
CPT/HCPCS: 36415; 80048; 80076; 85025; 96365; 96401; J9041; J9144

== ENCOUNTER 2023-07-25 09:38 | Day surgery (SDC) | payer OTHER ==
[~2023-07-25 09:38] MED LIST changes: -BORTEZOMIB 2.5 MG/ML SUB-Q INJECTION SQ ONE; -DARATUMUMAB-HYALURONIDASE-FIHJ (FASPRO) 15 ML VIAL SQ ONE
[2023-07-25] MEDS ORDERED: DARATUMUMAB-HYALURONIDASE-FIHJ (FASPRO) 15 ML VIAL SQ ONE (10:00)
[2023-07-25] MEDS ORDERED: BORTEZOMIB 2.5 MG/ML SUB-Q INJECTION SQ ONE (10:15)
[2023-07-25 10:42] LABS: BASO % 0.2 % (0-2.0); EOS % 4.3 % (0-4.5); HEMATOCRIT 23.3 % (32.4-45.2); LYMPH % 36.9 % (8-40); MCHC 34.2 g/dl (32.0-36.0); MEAN CELL VOLUME 93.6 fl (80-96); MEAN PLT VOLUME 8.4 fl (7.5-11.1); MONO % 28.7 % (3.8-10.2); NEUT % 29.9 % (42.8-82.8); PLATELET COUNT 249 10^3/uL (134-434); RBC 2.49 M/mm3 (3.60-5.2); RDW 14.2 % (11.6-15.6); WHITE BLOOD COUNT 2.4 K/mm3 (4.0-10.0)
[2023-07-25 10:50] LABS: POTASSIUM 4.3 mmol/L (3.5-5.1)
[2023-07-25 10:53] LABS: BLOOD UREA NITROGEN 14.8 mg/dL (7-18); CALCIUM 8.2 mg/dL (8.5-10.1)
[2023-07-25 10:56] LABS: CREATININE 0.7 mg/dL (0.55-1.3)
[2023-07-25 11:39] LABS: ANISOCYTOSIS 1+; MACROCYTOSIS 0
[2023-07-26 07:37] VITALS: BP 137/62; PULSE 83; RESP 18; TEMP 97.9
== END 2023-07-25 12:00 | disposition home or self-care (01) ==
LOC: J7W 09:38 → JONCCHEMO 09:38
PROVIDERS: ATTEND Internal Medicine Hematology & Oncology
DX: Z53.8 Procedure and treatment not carried out for other reasons (principal)
CPT/HCPCS: 36415; 80048; 85025

== ENCOUNTER 2023-08-01 09:55 | Day surgery (SDC) | payer OTHER ==
[2023-08-01] MEDS ORDERED: ACETAMINOPHEN 325 MG TABLET (FP) PO ONE (10:00)
[2023-08-01] MEDS ORDERED: DEXAMETHASONE SODIUM PHOSPHATE 40 MG, DIPHENHYDRAMINE 50 MG in SODIUM CHLORIDE 100 ML IVPB ONE (10:00)
[2023-08-01] MEDS ORDERED: BORTEZOMIB 2.5 MG/ML SUB-Q INJECTION SQ ONE (10:30)
[2023-08-01] MEDS ORDERED: DARATUMUMAB-HYALURONIDASE-FIHJ (FASPRO) 15 ML VIAL SQ ONE (10:30)
[2023-08-01 11:00] LABS: BASO % 0.5 % (0-2.0); EOS % 2.2 % (0-4.5); HEMATOCRIT 24.6 % (32.4-45.2); HEMOGLOBIN 8.4 GM/dL (10.7-15.3); LYMPH % 28.9 % (8-40); MCHC 34.1 g/dl (32.0-36.0); MEAN CELL VOLUME 93.9 fl (80-96); MONO % 19.6 % (3.8-10.2); NEUT % 48.8 % (42.8-82.8); PLATELET COUNT 314 10^3/uL (134-434); RBC 2.62 M/mm3 (3.60-5.2); RDW 14.5 % (11.6-15.6); WHITE BLOOD COUNT 4.2 K/mm3 (4.0-10.0)
[2023-08-01 11:20] LABS: POTASSIUM 4.8 mmol/L (3.5-5.1)
[2023-08-01 11:22] LABS: CALCIUM 9.4 mg/dL (8.5-10.1)
[2023-08-01 11:23] LABS: ALBUMIN 3.5 g/dl (3.4-5.0); BLOOD UREA NITROGEN 22.1 mg/dL (7-18)
[2023-08-01 11:26] LABS: BILIRUBIN,DIRECT 0.1 mg/dL (0.0-0.2); CREATININE 0.8 mg/dL (0.55-1.3)
[2023-08-01 11:27] LABS: BILIRUBIN,TOTAL 0.3 mg/dL (0.2-1)
[2023-08-01 11:28] LABS: TOT PROT 6.8 g/dl (6.4-8.2)
[2023-08-01 16:59] VITALS: RESP 20; TEMP 98.1
[2023-08-01 17:02] VITALS: BP 119/59; PULSE 84
[2023-08-02 16:11] LABS: FREE KAPPA,SERUM 20.7 mg/L (3.3-19.4)
== END 2023-08-01 14:15 | disposition home or self-care (01) ==
LOC: JONCCHEMO 09:55 → J7W 09:56 → JONCCHEMO 14:15
PROVIDERS: ATTEND Internal Medicine Hematology & Oncology
PROC: 3E01305 Introduction of Other Antineoplastic into Subcutaneous Tissue, Percutaneous Approach (ICD-10-PCS; principal; 2023-08-01)
PROC: 3E01305 Introduction of Other Antineoplastic into Subcutaneous Tissue, Percutaneous Approach (ICD-10-PCS; 2023-08-01)
PROC: 3E033GC Introduction of Other Therapeutic Substance into Peripheral Vein, Percutaneous Approach (ICD-10-PCS; 2023-08-01)
DX: Z51.11 Encounter for antineoplastic chemotherapy (principal); C90.00 Multiple myeloma not having achieved remission
CPT/HCPCS: 36415; 80048; 80076; 82784; 83883; 84155; 84165; 85025; 96365; 96401; J9041; J9144

== ENCOUNTER 2023-08-08 09:27 | Day surgery (SDC) | payer OTHER ==
[2023-08-08] MEDS ORDERED: DEXAMETHASONE SODIUM PHOSPHATE 40 MG, DIPHENHYDRAMINE 50 MG in SODIUM CHLORIDE 100 ML IVPB ONE (10:00)
[2023-08-08] MEDS ORDERED: ACETAMINOPHEN 325 MG TABLET (FP) PO ONE (10:00)
[2023-08-08 10:17] LABS: BASO % 0.4 % (0-2.0); EOS % 1.9 % (0-4.5); HEMATOCRIT 25.6 % (32.4-45.2); HEMOGLOBIN 8.8 GM/dL (10.7-15.3); LYMPH % 18.1 % (8-40); MCH 32.3 pg (25.7-33.7); MCHC 34.4 g/dl (32.0-36.0); MEAN PLT VOLUME 8.5 fl (7.5-11.1); NEUT % 64.6 % (42.8-82.8); PLATELET COUNT 253 10^3/uL (134-434); RBC 2.73 M/mm3 (3.60-5.2); RDW 14.1 % (11.6-15.6); WHITE BLOOD COUNT 7.5 K/mm3 (4.0-10.0)
[2023-08-08] MEDS ORDERED: DARATUMUMAB-HYALURONIDASE-FIHJ (FASPRO) 15 ML VIAL SQ ONE (10:30)
[2023-08-08] MEDS ORDERED: BORTEZOMIB 2.5 MG/ML SUB-Q INJECTION SQ ONE (10:30)
[2023-08-08 10:33] LABS: POTASSIUM 4.5 mmol/L (3.5-5.1)
[2023-08-08 10:35] LABS: BLOOD UREA NITROGEN 17.4 mg/dL (7-18); CALCIUM 8.7 mg/dL (8.5-10.1)
[2023-08-08 10:39] LABS: CREATININE 0.7 mg/dL (0.55-1.3)
[2023-08-08 17:14] VITALS: TEMP 97.7
[2023-08-08 17:19] VITALS: BP 156/69; PULSE 83; RESP 18
== END 2023-08-08 12:40 | disposition home or self-care (01) ==
LOC: JONCCHEMO 09:27 → J7W 09:28 → JONCCHEMO 12:40
PROVIDERS: ATTEND Internal Medicine Hematology & Oncology
PROC: 3E01305 Introduction of Other Antineoplastic into Subcutaneous Tissue, Percutaneous Approach (ICD-10-PCS; principal; 2023-08-08)
PROC: 3E01305 Introduction of Other Antineoplastic into Subcutaneous Tissue, Percutaneous Approach (ICD-10-PCS; 2023-08-08)
PROC: 3E033GC Introduction of Other Therapeutic Substance into Peripheral Vein, Percutaneous Approach (ICD-10-PCS; 2023-08-08)
DX: Z51.11 Encounter for antineoplastic chemotherapy (principal); C90.00 Multiple myeloma not having achieved remission
CPT/HCPCS: 36415; 80048; 85025; 96365; 96401; J9041; J9144

== ENCOUNTER 2023-08-15 09:34 | Day surgery (SDC) | payer OTHER ==
[2023-08-15 10:20] LABS: BASO % 0.1 % (0-2.0); EOS % 4.7 % (0-4.5); HEMATOCRIT 26.1 % (32.4-45.2); HEMOGLOBIN 9.1 GM/dL (10.7-15.3); LYMPH % 15.1 % (8-40); MCH 32.4 pg (25.7-33.7); MCHC 34.9 g/dl (32.0-36.0); MEAN PLT VOLUME 8.7 fl (7.5-11.1); MONO % 14.9 % (3.8-10.2); NEUT % 65.2 % (42.8-82.8); PLATELET COUNT 245 10^3/uL (134-434); RBC 2.81 M/mm3 (3.60-5.2); RDW 13.4 % (11.6-15.6); WHITE BLOOD COUNT 7.8 K/mm3 (4.0-10.0)
[2023-08-15 10:40] LABS: POTASSIUM 4.6 mmol/L (3.5-5.1)
[2023-08-15 10:41] LABS: BLOOD UREA NITROGEN 20.6 mg/dL (7-18); CALCIUM 8.9 mg/dL (8.5-10.1)
[2023-08-15 10:46] LABS: CREATININE 0.8 mg/dL (0.55-1.3)
[2023-08-15 11:29] LABS: ALBUMIN 3.4 g/dl (3.4-5.0)
[2023-08-15 11:31] LABS: BILIRUBIN,DIRECT 0.2 mg/dL (0.0-0.2)
[2023-08-15 11:33] LABS: BILIRUBIN,TOTAL 0.3 mg/dL (0.2-1); TOT PROT 6.9 g/dl (6.4-8.2)
[2023-08-15] MEDS: DEXAMETHASONE SODIUM PHOSPHATE 40 MG, DIPHENHYDRAMINE 50 MG in SODIUM CHLORIDE 100 ML IVPB ONE (12:15)
[2023-08-15] MEDS: ACETAMINOPHEN 325 MG TABLET (FP) PO ONE (12:15)
[2023-08-15] MEDS: BORTEZOMIB 2.5 MG/ML SUB-Q INJECTION SQ ONE (12:58)
[2023-08-15] MEDS: DARATUMUMAB-HYALURONIDASE-FIHJ (FASPRO) 15 ML VIAL SQ ONE (12:58)
[2023-08-15 15:05] VITALS: RESP 18; TEMP 98.2
[2023-08-15 15:15] VITALS: PULSE 68
[2023-08-15 15:16] VITALS: BP 133/58
== END 2023-08-15 13:45 | disposition home or self-care (01) ==
LOC: JONCCHEMO 09:34 → J7W 09:35 → JONCCHEMO 13:45
PROVIDERS: ATTEND Internal Medicine Hematology & Oncology
DX: Z51.11 Encounter for antineoplastic chemotherapy (principal); C90.00 Multiple myeloma not having achieved remission
CPT/HCPCS: 36415; 80048; 80053; 82248; 83615; 85025; 96401; J9041; J9144

== ENCOUNTER 2023-08-22 09:15 | Day surgery (SDC) | payer OTHER ==
[2023-08-22 10:04] LABS: BASO % 0.1 % (0-2.0); EOS % 5.8 % (0-4.5); HEMATOCRIT 26.1 % (32.4-45.2); HEMOGLOBIN 8.9 GM/dL (10.7-15.3); LYMPH % 11.3 % (8-40); MCH 31.9 pg (25.7-33.7); MCHC 33.9 g/dl (32.0-36.0); MEAN PLT VOLUME 9.7 fl (7.5-11.1); MONO % 8.4 % (3.8-10.2); NEUT % 74.4 % (42.8-82.8); PLATELET COUNT 171 10^3/uL (134-434); RBC 2.78 M/mm3 (3.60-5.2); RDW 13.6 % (11.6-15.6); WHITE BLOOD COUNT 5.9 K/mm3 (4.0-10.0)
[2023-08-22 10:32] LABS: POTASSIUM 3.6 mmol/L (3.5-5.1)
[2023-08-22 10:34] LABS: BLOOD UREA NITROGEN 21.4 mg/dL (7-18); CALCIUM 8.8 mg/dL (8.5-10.1)
[2023-08-22 10:35] LABS: ALBUMIN 3.5 g/dl (3.4-5.0)
[2023-08-22 10:37] LABS: BILIRUBIN,DIRECT 0.1 mg/dL (0.0-0.2); CREATININE 0.8 mg/dL (0.55-1.3)
[2023-08-22 10:39] LABS: TOT PROT 6.9 g/dl (6.4-8.2)
[2023-08-22 10:40] LABS: BILIRUBIN,TOTAL 0.3 mg/dL (0.2-1)
[2023-08-22] MEDS: DEXAMETHASONE SODIUM PHOSPHATE 40 MG, DIPHENHYDRAMINE 50 MG in SODIUM CHLORIDE 100 ML IVPB ONE (11:06)
[2023-08-22] MEDS: ACETAMINOPHEN 325 MG TABLET (FP) PO ONE (11:06)
[2023-08-22] MEDS: BORTEZOMIB 2.5 MG/ML SUB-Q INJECTION SQ ONE (12:48)
[2023-08-22] MEDS: DARATUMUMAB-HYALURONIDASE-FIHJ (FASPRO) 15 ML VIAL SQ ONE (12:51)
[2023-08-22 16:03] VITALS: RESP 18; TEMP 97.6
[2023-08-22 16:08] VITALS: BP 142/52; PULSE 87
== END 2023-08-22 13:15 | disposition home or self-care (01) ==
LOC: JONCCHEMO 09:15 → J7W 09:16 → JONCCHEMO 13:15
PROVIDERS: ATTEND Internal Medicine Hematology & Oncology
PROC: 3E01305 Introduction of Other Antineoplastic into Subcutaneous Tissue, Percutaneous Approach (ICD-10-PCS; principal; 2023-08-22)
PROC: 3E01305 Introduction of Other Antineoplastic into Subcutaneous Tissue, Percutaneous Approach (ICD-10-PCS; 2023-08-22)
PROC: 3E033GC Introduction of Other Therapeutic Substance into Peripheral Vein, Percutaneous Approach (ICD-10-PCS; 2023-08-22)
DX: Z51.11 Encounter for antineoplastic chemotherapy (principal); C90.00 Multiple myeloma not having achieved remission
CPT/HCPCS: 36415; 80048; 80076; 85025; 96365; 96401; J9041; J9144

== ENCOUNTER 2023-08-29 09:18 | Day surgery (SDC) | payer OTHER ==
[2023-08-29 10:03] LABS: BASO % 0.1 % (0-2.0); EOS % 2.6 % (0-4.5); HEMATOCRIT 23.8 % (32.4-45.2); HEMOGLOBIN 8.3 GM/dL (10.7-15.3); LYMPH % 10.8 % (8-40); MCH 32.5 pg (25.7-33.7); MCHC 34.8 g/dl (32.0-36.0); MEAN CELL VOLUME 93.6 fl (80-96); MEAN PLT VOLUME 9.2 fl (7.5-11.1); MONO % 16.7 % (3.8-10.2); NEUT % 69.8 % (42.8-82.8); PLATELET COUNT 177 10^3/uL (134-434); RBC 2.54 M/mm3 (3.60-5.2); RDW 13.5 % (11.6-15.6); WHITE BLOOD COUNT 9.6 K/mm3 (4.0-10.0)
[2023-08-29 10:23] LABS: POTASSIUM 3.8 mmol/L (3.5-5.1)
[2023-08-29 10:25] LABS: ALBUMIN 3.2 g/dl (3.4-5.0); BLOOD UREA NITROGEN 22.6 mg/dL (7-18); CALCIUM 8.4 mg/dL (8.5-10.1)
[2023-08-29 10:28] LABS: BILIRUBIN,DIRECT 0.1 mg/dL (0.0-0.2); CREATININE 0.8 mg/dL (0.55-1.3)
[2023-08-29 10:30] LABS: BILIRUBIN,TOTAL 0.3 mg/dL (0.2-1); TOT PROT 6.1 g/dl (6.4-8.2)
[2023-08-29] MEDS: DEXAMETHASONE SODIUM PHOSPHATE 40 MG, DIPHENHYDRAMINE 50 MG in SODIUM CHLORIDE 100 ML IVPB ONE (10:37)
[2023-08-29] MEDS: ACETAMINOPHEN 325 MG TABLET (FP) PO ONE (10:38)
[2023-08-29] MEDS: BORTEZOMIB 2.5 MG/ML SUB-Q INJECTION SQ ONE (12:09)
[2023-08-29] MEDS: DARATUMUMAB-HYALURONIDASE-FIHJ (FASPRO) 15 ML VIAL SQ ONE (12:10)
[2023-08-29 15:46] VITALS: RESP 18; TEMP 98.4
[2023-08-29 15:56] VITALS: BP 148/65; PULSE 80
== END 2023-08-29 13:00 | disposition home or self-care (01) ==
LOC: JONCCHEMO 09:18 → J7W 09:19 → JONCCHEMO 13:00
PROVIDERS: ATTEND Internal Medicine Hematology & Oncology
PROC: 3E033GC Introduction of Other Therapeutic Substance into Peripheral Vein, Percutaneous Approach (ICD-10-PCS; principal; 2023-08-29)
PROC: 3E01305 Introduction of Other Antineoplastic into Subcutaneous Tissue, Percutaneous Approach (ICD-10-PCS; 2023-08-29)
PROC: 3E01305 Introduction of Other Antineoplastic into Subcutaneous Tissue, Percutaneous Approach (ICD-10-PCS; 2023-08-29)
DX: Z51.11 Encounter for antineoplastic chemotherapy (principal); C90.00 Multiple myeloma not having achieved remission
CPT/HCPCS: 36415; 80048; 80076; 85025; 96365; 96401; J9041; J9144

== ENCOUNTER 2023-09-05 09:11 | Day surgery (SDC) | payer OTHER ==
[2023-09-05 09:39] VITALS: RESP 18; TEMP 97.8
[2023-09-05 10:08] LABS: HEMATOCRIT 25.1 % (32.4-45.2); HEMOGLOBIN 8.6 GM/dL (10.7-15.3); MCH 32.2 pg (25.7-33.7); MCHC 34.3 g/dl (32.0-36.0); MEAN CELL VOLUME 93.8 fl (80-96); PLATELET COUNT 152 10^3/uL (134-434); RBC 2.68 M/mm3 (3.60-5.2); RDW 13.4 % (11.6-15.6); WHITE BLOOD COUNT 4.3 K/mm3 (4.0-10.0)
[2023-09-05 10:33] LABS: CHLORIDE 114 mmol/L (98-107); POTASSIUM 4.2 mmol/L (3.5-5.1); SODIUM 141 mmol/L (136-145)
[2023-09-05 10:36] LABS: ALBUMIN 3.2 g/dl (3.4-5.0); ANION GAP 5 mmol/L (4-13); CALCIUM 8.7 mg/dL (8.5-10.1); CO2 23 mmol/L (21-32); GLUCOSE,RANDOM 132 mg/dL (74-106)
[2023-09-05 10:38] LABS: BILIRUBIN,DIRECT < 0.1 mg/dL (0.0-0.2)
[2023-09-05 10:39] LABS: SGOT/AST 14 U/L (15-37)
[2023-09-05 10:40] LABS: BILIRUBIN,TOTAL 0.3 mg/dL (0.2-1); CREATININE 0.7 mg/dL (0.55-1.3); SGPT/ALT 37 U/L (13-61); TOT PROT 6.2 g/dl (6.4-8.2)
[2023-09-05 10:43] LABS: ALK PHOS 202 U/L (45-117)
[2023-09-05 10:49] LABS: ANISOCYTOSIS 1+; MACROCYTOSIS 0
[2023-09-05] MEDS: DEXAMETHASONE SODIUM PHOSPHATE 40 MG, DIPHENHYDRAMINE 50 MG in SODIUM CHLORIDE 100 ML IVPB ONE (11:00)
[2023-09-05] MEDS: ACETAMINOPHEN 325 MG TABLET (FP) PO ONE (11:00)
[2023-09-05] MEDS: BORTEZOMIB 2.5 MG/ML SUB-Q INJECTION SQ ONE (11:33)
[2023-09-05] MEDS: DARATUMUMAB-HYALURONIDASE-FIHJ (FASPRO) 15 ML VIAL SQ ONE (11:34)
[2023-09-05 11:52] VITALS: BP 154/68
[2023-09-05 14:54] VITALS: PULSE 75
== END 2023-09-05 12:10 | disposition home or self-care (01) ==
LOC: JONCCHEMO 09:11 → J7W 09:12 → JONCCHEMO 12:10
PROVIDERS: ATTEND Internal Medicine Hematology & Oncology
PROC: 3E033GC Introduction of Other Therapeutic Substance into Peripheral Vein, Percutaneous Approach (ICD-10-PCS; principal; 2023-09-05)
PROC: 3E01305 Introduction of Other Antineoplastic into Subcutaneous Tissue, Percutaneous Approach (ICD-10-PCS; 2023-09-05)
PROC: 3E01305 Introduction of Other Antineoplastic into Subcutaneous Tissue, Percutaneous Approach (ICD-10-PCS; 2023-09-05)
DX: Z51.11 Encounter for antineoplastic chemotherapy (principal); C90.00 Multiple myeloma not having achieved remission
CPT/HCPCS: 36415; 80048; 80076; 85025; 96365; 96401; J9041; J9144

== ENCOUNTER 2023-09-12 09:17 | Day surgery (SDC) | payer OTHER ==
[2023-09-12 09:53] LABS: HEMATOCRIT 27.6 % (32.4-45.2); HEMOGLOBIN 9.3 GM/dL (10.7-15.3); MCHC 33.6 g/dl (32.0-36.0); MEAN CELL VOLUME 95.2 fl (80-96); MEAN PLT VOLUME 7.8 fl (7.5-11.1); PLATELET COUNT 225 10^3/uL (134-434); RDW 13.3 % (11.6-15.6)
[2023-09-12 10:01] VITALS: BP 147/68; PULSE 92; RESP 18; TEMP 98.6
[2023-09-12 10:43] LABS: POTASSIUM 4.1 mmol/L (3.5-5.1)
[2023-09-12 10:48] LABS: ALBUMIN 3.3 g/dl (3.4-5.0); CALCIUM 8.6 mg/dL (8.5-10.1)
[2023-09-12 10:49] LABS: BLOOD UREA NITROGEN 15.6 mg/dL (7-18)
[2023-09-12 10:51] LABS: BILIRUBIN,DIRECT 0.1 mg/dL (0.0-0.2); CREATININE 0.8 mg/dL (0.55-1.3)
[2023-09-12 10:53] LABS: BILIRUBIN,TOTAL 0.3 mg/dL (0.2-1)
[2023-09-12] MEDS: DEXAMETHASONE SODIUM PHOSPHATE 40 MG, DIPHENHYDRAMINE 50 MG in SODIUM CHLORIDE 100 ML IVPB ONE (11:23)
[2023-09-12] MEDS: ACETAMINOPHEN 325 MG TABLET (FP) PO ONE (11:25)
[2023-09-12] MEDS: DARATUMUMAB-HYALURONIDASE-FIHJ (FASPRO) 15 ML VIAL SQ ONE (12:26)
[2023-09-12] MEDS: BORTEZOMIB 2.5 MG/ML SUB-Q INJECTION SQ ONE (12:26)
[2023-09-14 17:07] LABS: FREE KAPPA,SERUM 29.1 mg/L (3.3-19.4)
== END 2023-09-12 13:20 | disposition home or self-care (01) ==
LOC: JONCCHEMO 09:17 → J7W 09:18 → JONCCHEMO 13:20
PROVIDERS: ATTEND Internal Medicine Hematology & Oncology
PROC: 3E01305 Introduction of Other Antineoplastic into Subcutaneous Tissue, Percutaneous Approach (ICD-10-PCS; principal; 2023-09-12)
PROC: 3E01305 Introduction of Other Antineoplastic into Subcutaneous Tissue, Percutaneous Approach (ICD-10-PCS; 2023-09-12)
PROC: 3E033GC Introduction of Other Therapeutic Substance into Peripheral Vein, Percutaneous Approach (ICD-10-PCS; 2023-09-12)
DX: Z51.11 Encounter for antineoplastic chemotherapy (principal); C90.00 Multiple myeloma not having achieved remission
CPT/HCPCS: 36415; 80048; 80076; 82784; 83883; 84155; 84165; 85025; 96365; 96401; J9041; J9144

== ENCOUNTER 2023-09-19 09:50 | Day surgery (SDC) | payer OTHER ==
[2023-09-19 10:29] LABS: BASO % 0.2 % (0-2.0); EOS % 7.4 % (0-4.5); HEMATOCRIT 28.7 % (32.4-45.2); HEMOGLOBIN 9.7 GM/dL (10.7-15.3); LYMPH % 15.6 % (8-40); MCH 31.4 pg (25.7-33.7); MCHC 33.7 g/dl (32.0-36.0); MEAN CELL VOLUME 93.1 fl (80-96); MEAN PLT VOLUME 9.6 fl (7.5-11.1); MONO % 13.2 % (3.8-10.2); NEUT % 63.6 % (42.8-82.8); PLATELET COUNT 264 10^3/uL (134-434); RBC 3.08 M/mm3 (3.60-5.2); RDW 13.6 % (11.6-15.6); WHITE BLOOD COUNT 8.3 K/mm3 (4.0-10.0)
[2023-09-19 10:47] LABS: POTASSIUM 4.5 mmol/L (3.5-5.1)
[2023-09-19 10:49] LABS: CALCIUM 8.3 mg/dL (8.5-10.1)
[2023-09-19 10:50] LABS: ALBUMIN 2.8 g/dl (3.4-5.0); BLOOD UREA NITROGEN 25.3 mg/dL (7-18)
[2023-09-19 10:52] LABS: BILIRUBIN,DIRECT 0.1 mg/dL (0.0-0.2)
[2023-09-19 10:54] LABS: BILIRUBIN,TOTAL 0.3 mg/dL (0.2-1); TOT PROT 5.8 g/dl (6.4-8.2)
[2023-09-19] MEDS: DEXAMETHASONE SODIUM PHOSPHATE 40 MG in SODIUM CHLORIDE 50 ML IVPB ONE (12:11)
[2023-09-19] MEDS: BORTEZOMIB 2.5 MG/ML SUB-Q INJECTION SQ ONE (13:14)
[2023-09-19 18:33] VITALS: RESP 20; TEMP 97.7
[2023-09-19 18:39] VITALS: BP 89/41; PULSE 84
== END 2023-09-19 14:00 | disposition home or self-care (01) ==
LOC: J7W 09:50 → JONCCHEMO 09:50
PROVIDERS: ATTEND Internal Medicine Hematology & Oncology
DX: Z51.11 Encounter for antineoplastic chemotherapy (principal); C90.00 Multiple myeloma not having achieved remission
CPT/HCPCS: 36415; 80048; 80076; 85025; 96374; 96401; J9041

== ENCOUNTER 2023-10-03 08:50 | Day surgery (SDC) | payer OTHER ==
[2023-10-03 09:24] LABS: BASO % 0.6 % (0-2.0); EOS % 4.6 % (0-4.5); HEMOGLOBIN 8.3 GM/dL (10.7-15.3); LYMPH % 22.2 % (8-40); MCHC 33.3 g/dl (32.0-36.0); MONO % 13.4 % (3.8-10.2); NEUT % 59.2 % (42.8-82.8); PLATELET COUNT 178 10^3/uL (134-434); RBC 2.68 M/mm3 (3.60-5.2); RDW 13.5 % (11.6-15.6)
[2023-10-03 10:01] LABS: POTASSIUM 3.9 mmol/L (3.5-5.1)
[2023-10-03 10:03] LABS: ALBUMIN 3.1 g/dl (3.4-5.0); BLOOD UREA NITROGEN 15.2 mg/dL (7-18); CALCIUM 8.7 mg/dL (8.5-10.1)
[2023-10-03 10:06] LABS: BILIRUBIN,DIRECT 0.1 mg/dL (0.0-0.2); CREATININE 0.9 mg/dL (0.55-1.3)
[2023-10-03 10:07] LABS: BILIRUBIN,TOTAL 0.2 mg/dL (0.2-1)
[2023-10-03 10:08] LABS: TOT PROT 6.5 g/dl (6.4-8.2)
[2023-10-03 10:39] VITALS: RESP 18; TEMP 97.8
[2023-10-03] MEDS: DEXAMETHASONE SODIUM PHOSPHATE 40 MG, DIPHENHYDRAMINE 50 MG in SODIUM CHLORIDE 100 ML IVPB ONE (10:52)
[2023-10-03] MEDS: ACETAMINOPHEN 325 MG TABLET (FP) PO ONE (10:53)
[2023-10-03] MEDS: BORTEZOMIB 2.5 MG/ML SUB-Q INJECTION SQ ONE (11:31)
[2023-10-03] MEDS: DARATUMUMAB-HYALURONIDASE-FIHJ (FASPRO) 15 ML VIAL SQ ONE (11:33)
[2023-10-03 13:01] VITALS: BP 122/68; PULSE 78
[2023-10-05 17:11] LABS: FREE KAPPA,SERUM 37.8 mg/L (3.3-19.4)
== END 2023-10-03 12:40 | disposition home or self-care (01) ==
LOC: JONCCHEMO 08:50 → J7W 09:19 → JONCCHEMO 12:40
PROVIDERS: ATTEND Internal Medicine Hematology & Oncology
PROC: 3E033GC Introduction of Other Therapeutic Substance into Peripheral Vein, Percutaneous Approach (ICD-10-PCS; principal; 2023-10-03)
PROC: 3E01305 Introduction of Other Antineoplastic into Subcutaneous Tissue, Percutaneous Approach (ICD-10-PCS; 2023-10-03)
PROC: 3E01305 Introduction of Other Antineoplastic into Subcutaneous Tissue, Percutaneous Approach (ICD-10-PCS; 2023-10-03)
DX: Z51.11 Encounter for antineoplastic chemotherapy (principal); C90.00 Multiple myeloma not having achieved remission
CPT/HCPCS: 36415; 80048; 80076; 82784; 83883; 84155; 84165; 85025; 96365; 96401; J9041; J9144

== ENCOUNTER 2023-10-10 09:05 | Day surgery (SDC) | payer OTHER ==
[2023-10-10 10:05] LABS: HEMATOCRIT 27.2 % (32.4-45.2); HEMOGLOBIN 9.1 GM/dL (10.7-15.3); MCH 31.3 pg (25.7-33.7); MCHC 33.5 g/dl (32.0-36.0); MEAN CELL VOLUME 93.3 fl (80-96); MEAN PLT VOLUME 8.7 fl (7.5-11.1); PLATELET COUNT 228 10^3/uL (134-434); RBC 2.92 M/mm3 (3.60-5.2); RDW 13.8 % (11.6-15.6); WHITE BLOOD COUNT 4.5 K/mm3 (4.0-10.0)
[2023-10-10 10:17] LABS: POTASSIUM 3.9 mmol/L (3.5-5.1)
[2023-10-10 10:20] LABS: ALBUMIN 3.3 g/dl (3.4-5.0); BLOOD UREA NITROGEN 13.2 mg/dL (7-18); CALCIUM 8.6 mg/dL (8.5-10.1)
[2023-10-10 10:23] LABS: BILIRUBIN,DIRECT 0.1 mg/dL (0.0-0.2); CREATININE 0.9 mg/dL (0.55-1.3)
[2023-10-10 10:25] LABS: BILIRUBIN,TOTAL 0.3 mg/dL (0.2-1); TOT PROT 6.6 g/dl (6.4-8.2)
[2023-10-10 10:46] LABS: ANISOCYTOSIS 1+; MACROCYTOSIS 0
[2023-10-10] MEDS: DEXAMETHASONE SODIUM PHOSPHATE 40 MG in SODIUM CHLORIDE 50 ML IVPB ONE (11:01)
[2023-10-10] MEDS: BORTEZOMIB 2.5 MG/ML SUB-Q INJECTION SQ ONE (11:23)
[2023-10-10 15:34] VITALS: BP 148/65; PULSE 83; RESP 20; TEMP 98.1
== END 2023-10-10 14:00 | disposition home or self-care (01) ==
LOC: JONCCHEMO 09:05 → J7W 09:05 → JONCCHEMO 14:00
PROVIDERS: ATTEND Internal Medicine Hematology & Oncology
PROC: 3E033GC Introduction of Other Therapeutic Substance into Peripheral Vein, Percutaneous Approach (ICD-10-PCS; principal; 2023-10-10)
PROC: 3E01305 Introduction of Other Antineoplastic into Subcutaneous Tissue, Percutaneous Approach (ICD-10-PCS; 2023-10-10)
DX: Z51.11 Encounter for antineoplastic chemotherapy (principal); C90.00 Multiple myeloma not having achieved remission
CPT/HCPCS: 36415; 80048; 80076; 85025; 96365; 96401; J9041

== ENCOUNTER 2023-10-17 09:16 | Day surgery (SDC) | payer OTHER ==
[2023-10-17 09:47] VITALS: BP 143/56; PULSE 87; RESP 20; TEMP 98
[2023-10-17 10:11] LABS: HEMATOCRIT 25.8 % (32.4-45.2); HEMOGLOBIN 8.8 GM/dL (10.7-15.3); MCH 31.4 pg (25.7-33.7); MEAN CELL VOLUME 92.4 fl (80-96); MEAN PLT VOLUME 8.5 fl (7.5-11.1); PLATELET COUNT 230 10^3/uL (134-434); RBC 2.79 M/mm3 (3.60-5.2); WHITE BLOOD COUNT 8.1 K/mm3 (4.0-10.0)
[2023-10-17 10:26] LABS: POTASSIUM 3.9 mmol/L (3.5-5.1)
[2023-10-17 10:28] LABS: CALCIUM 8.9 mg/dL (8.5-10.1)
[2023-10-17 10:29] LABS: ALBUMIN 3.2 g/dl (3.4-5.0); BLOOD UREA NITROGEN 20.9 mg/dL (7-18)
[2023-10-17 10:31] LABS: BILIRUBIN,DIRECT 0.1 mg/dL (0.0-0.2)
[2023-10-17 10:33] LABS: BILIRUBIN,TOTAL 0.2 mg/dL (0.2-1); TOT PROT 6.5 g/dl (6.4-8.2)
[2023-10-17 10:52] LABS: ANISOCYTOSIS 0; HELMET CELLS 0; HOWELL-JOLLY BODIES 0; MACROCYTOSIS 0; OVALOCYTE 0; ROULEAU 0; SICKELED CELLS 0; TARGET CELLS 0; TEAR DROP CELLS 0; TOXIC GRANULATION 0
[2023-10-17] MEDS: DEXAMETHASONE SODIUM PHOSPHATE 40 MG in SODIUM CHLORIDE 50 ML IVPB ONE (11:50)
[2023-10-17] MEDS: BORTEZOMIB 2.5 MG/ML SUB-Q INJECTION SQ ONE (12:35)
== END 2023-10-17 13:00 | disposition home or self-care (01) ==
LOC: JONCCHEMO 09:16 → J7W 09:17 → JONCCHEMO 13:00
PROVIDERS: ATTEND Internal Medicine Hematology & Oncology
PROC: 3E01305 Introduction of Other Antineoplastic into Subcutaneous Tissue, Percutaneous Approach (ICD-10-PCS; principal; 2023-10-17)
PROC: 3E033GC Introduction of Other Therapeutic Substance into Peripheral Vein, Percutaneous Approach (ICD-10-PCS; 2023-10-17)
DX: Z51.11 Encounter for antineoplastic chemotherapy (principal); C90.00 Multiple myeloma not having achieved remission
CPT/HCPCS: 36415; 80048; 80076; 85025; 96365; 96401; J9041

== ENCOUNTER 2023-10-24 09:27 | Day surgery (SDC) | payer OTHER ==
[2023-10-24 10:06] LABS: BASO % 0.3 % (0-2.0); EOS % 2.2 % (0-4.5); HEMATOCRIT 25.1 % (32.4-45.2); HEMOGLOBIN 8.5 GM/dL (10.7-15.3); LYMPH % 20.6 % (8-40); MCH 31.2 pg (25.7-33.7); MCHC 33.8 g/dl (32.0-36.0); MEAN CELL VOLUME 92.3 fl (80-96); MEAN PLT VOLUME 8.5 fl (7.5-11.1); MONO % 11.3 % (3.8-10.2); NEUT % 65.6 % (42.8-82.8); PLATELET COUNT 194 10^3/uL (134-434); RBC 2.72 M/mm3 (3.60-5.2); WHITE BLOOD COUNT 7.3 K/mm3 (4.0-10.0)
[2023-10-24 10:35] LABS: POTASSIUM 4.5 mmol/L (3.5-5.1)
[2023-10-24 10:37] LABS: ALBUMIN 3.2 g/dl (3.4-5.0); BLOOD UREA NITROGEN 18.1 mg/dL (7-18); CALCIUM 8.7 mg/dL (8.5-10.1)
[2023-10-24 10:40] LABS: BILIRUBIN,DIRECT 0.1 mg/dL (0.0-0.2); CREATININE 0.8 mg/dL (0.55-1.3)
[2023-10-24 10:42] LABS: BILIRUBIN,TOTAL 0.2 mg/dL (0.2-1); TOT PROT 6.5 g/dl (6.4-8.2)
[2023-10-24] MEDS: DEXAMETHASONE SODIUM PHOSPHATE 40 MG, DIPHENHYDRAMINE 50 MG in SODIUM CHLORIDE 100 ML IVPB ONE (11:21)
[2023-10-24] MEDS: ACETAMINOPHEN 325 MG TABLET (FP) PO ONE (11:22)
[2023-10-24] MEDS: DARATUMUMAB-HYALURONIDASE-FIHJ (FASPRO) 15 ML VIAL SQ ONE (11:54)
[2023-10-24] MEDS: BORTEZOMIB 2.5 MG/ML SUB-Q INJECTION SQ ONE (11:54)
[2023-10-24 16:34] VITALS: BP 158/68; PULSE 71; RESP 16; TEMP 98.1
[2023-10-26 17:10] LABS: FREE KAPPA,SERUM 18.3 mg/L (3.3-19.4)
== END 2023-10-24 12:30 | disposition home or self-care (01) ==
LOC: JONCCHEMO 09:27 → J7W 09:28 → JONCCHEMO 12:30
PROVIDERS: ATTEND Internal Medicine Hematology & Oncology
PROC: 3E033GC Introduction of Other Therapeutic Substance into Peripheral Vein, Percutaneous Approach (ICD-10-PCS; principal; 2023-10-24)
PROC: 3E01305 Introduction of Other Antineoplastic into Subcutaneous Tissue, Percutaneous Approach (ICD-10-PCS; 2023-10-24)
PROC: 3E01305 Introduction of Other Antineoplastic into Subcutaneous Tissue, Percutaneous Approach (ICD-10-PCS; 2023-10-24)
DX: Z51.11 Encounter for antineoplastic chemotherapy (principal); C90.00 Multiple myeloma not having achieved remission
CPT/HCPCS: 36415; 80048; 80076; 82784; 83883; 84155; 84165; 85025; 96365; 96401; J9041; J9144

== ENCOUNTER 2023-10-30 09:19 | Day surgery (SDC) | payer OTHER ==
[2023-10-30 09:48] LABS: BASO % 0.2 % (0-2.0); HEMATOCRIT 24.6 % (32.4-45.2); HEMOGLOBIN 8.3 GM/dL (10.7-15.3); LYMPH % 17.3 % (8-40); MCH 30.7 pg (25.7-33.7); MCHC 33.7 g/dl (32.0-36.0); MEAN CELL VOLUME 90.9 fl (80-96); MEAN PLT VOLUME 8.3 fl (7.5-11.1); MONO % 11.3 % (3.8-10.2); NEUT % 68.2 % (42.8-82.8); PLATELET COUNT 262 10^3/uL (134-434); RBC 2.71 M/mm3 (3.60-5.2); RDW 14.1 % (11.6-15.6); WHITE BLOOD COUNT 7.2 K/mm3 (4.0-10.0)
[2023-10-30 10:09] LABS: POTASSIUM 4.5 mmol/L (3.5-5.1)
[2023-10-30 10:12] LABS: ALBUMIN 3.1 g/dl (3.4-5.0); BLOOD UREA NITROGEN 17.7 mg/dL (7-18)
[2023-10-30 10:14] LABS: BILIRUBIN,DIRECT 0.1 mg/dL (0.0-0.2)
[2023-10-30 10:16] LABS: BILIRUBIN,TOTAL 0.2 mg/dL (0.2-1); CREATININE 0.8 mg/dL (0.55-1.3); TOT PROT 6.4 g/dl (6.4-8.2)
[2023-10-30] MEDS: DEXAMETHASONE SODIUM PHOSPHATE 40 MG in SODIUM CHLORIDE 50 ML IVPB ONE (10:55)
[2023-10-30] MEDS: BORTEZOMIB 2.5 MG/ML SUB-Q INJECTION SQ ONE (11:29)
[2023-10-30 17:20] VITALS: BP 160/62; PULSE 82; RESP 18; TEMP 97.9
== END 2023-10-30 11:35 | disposition home or self-care (01) ==
LOC: JONCCHEMO 09:19 → J7W 09:21 → JONCCHEMO 11:35
PROVIDERS: ATTEND Internal Medicine Hematology & Oncology
PROC: 3E033GC Introduction of Other Therapeutic Substance into Peripheral Vein, Percutaneous Approach (ICD-10-PCS; principal; 2023-10-30)
PROC: 3E01305 Introduction of Other Antineoplastic into Subcutaneous Tissue, Percutaneous Approach (ICD-10-PCS; 2023-10-30)
DX: Z51.11 Encounter for antineoplastic chemotherapy (principal); C90.00 Multiple myeloma not having achieved remission
CPT/HCPCS: 36415; 80048; 80076; 85025; 96365; 96401; J9041

== ENCOUNTER 2023-11-07 09:31 | Day surgery (SDC) | payer OTHER ==
[2023-11-07 10:00] VITALS: RESP 20
[2023-11-07 10:05] LABS: BASO % 0.2 % (0-2.0); EOS % 2.6 % (0-4.5); HEMOGLOBIN 8.4 GM/dL (10.7-15.3); LYMPH % 11.6 % (8-40); MCH 30.9 pg (25.7-33.7); MCHC 33.7 g/dl (32.0-36.0); MEAN CELL VOLUME 91.7 fl (80-96); MEAN PLT VOLUME 8.3 fl (7.5-11.1); MONO % 13.9 % (3.8-10.2); NEUT % 71.7 % (42.8-82.8); PLATELET COUNT 265 10^3/uL (134-434); RBC 2.73 M/mm3 (3.60-5.2); RDW 14.3 % (11.6-15.6); WHITE BLOOD COUNT 10.2 K/mm3 (4.0-10.0)
[2023-11-07 10:27] LABS: POTASSIUM 4.4 mmol/L (3.5-5.1)
[2023-11-07 10:29] LABS: CALCIUM 9.1 mg/dL (8.5-10.1)
[2023-11-07 10:30] LABS: ALBUMIN 3.1 g/dl (3.4-5.0); BLOOD UREA NITROGEN 20.1 mg/dL (7-18)
[2023-11-07 10:32] LABS: BILIRUBIN,DIRECT 0.1 mg/dL (0.0-0.2)
[2023-11-07 10:33] LABS: CREATININE 1.2 mg/dL (0.55-1.3)
[2023-11-07 10:34] LABS: TOT PROT 6.4 g/dl (6.4-8.2)
[2023-11-07 10:35] LABS: BILIRUBIN,TOTAL 0.3 mg/dL (0.2-1)
[2023-11-07] MEDS: DEXAMETHASONE SODIUM PHOSPHATE 40 MG in SODIUM CHLORIDE 50 ML IVPB ONE (10:41)
[2023-11-07] MEDS: BORTEZOMIB 2.5 MG/ML SUB-Q INJECTION SQ ONE (11:04)
[2023-11-07 12:07] VITALS: BP 109/58; PULSE 103; TEMP 98.1
== END 2023-11-07 11:35 | disposition home or self-care (01) ==
LOC: JONCCHEMO 09:31 → J7W 09:32 → JONCCHEMO 11:35
PROVIDERS: ATTEND Internal Medicine Hematology & Oncology
PROC: 3E033GC Introduction of Other Therapeutic Substance into Peripheral Vein, Percutaneous Approach (ICD-10-PCS; principal; 2023-11-07)
PROC: 3E01305 Introduction of Other Antineoplastic into Subcutaneous Tissue, Percutaneous Approach (ICD-10-PCS; 2023-11-07)
DX: Z51.11 Encounter for antineoplastic chemotherapy (principal); C90.00 Multiple myeloma not having achieved remission
CPT/HCPCS: 36415; 80048; 80076; 85025; 96374; 96401; J9041

== ENCOUNTER 2023-11-14 09:20 | Day surgery (SDC) | payer OTHER ==
[2023-11-14 09:55] LABS: BASO % 0.2 % (0-2.0); EOS % 1.4 % (0-4.5); HEMATOCRIT 26.5 % (32.4-45.2); LYMPH % 16.2 % (8-40); MCH 30.6 pg (25.7-33.7); MEAN CELL VOLUME 90.1 fl (80-96); MEAN PLT VOLUME 8.4 fl (7.5-11.1); MONO % 11.8 % (3.8-10.2); NEUT % 70.4 % (42.8-82.8); PLATELET COUNT 255 10^3/uL (134-434); RBC 2.94 M/mm3 (3.60-5.2); RDW 14.4 % (11.6-15.6); WHITE BLOOD COUNT 10.3 K/mm3 (4.0-10.0)
[2023-11-14 10:18] LABS: POTASSIUM 4.9 mmol/L (3.5-5.1)
[2023-11-14 10:20] LABS: ALBUMIN 3.1 g/dl (3.4-5.0); BLOOD UREA NITROGEN 22.5 mg/dL (7-18); CALCIUM 9.1 mg/dL (8.5-10.1)
[2023-11-14 10:23] LABS: BILIRUBIN,DIRECT 0.1 mg/dL (0.0-0.2); CREATININE 0.9 mg/dL (0.55-1.3)
[2023-11-14 10:25] LABS: BILIRUBIN,TOTAL 0.2 mg/dL (0.2-1); TOT PROT 6.7 g/dl (6.4-8.2)
[2023-11-14] MEDS: DEXAMETHASONE SODIUM PHOSPHATE 40 MG, DIPHENHYDRAMINE 50 MG in SODIUM CHLORIDE 100 ML IVPB ONE (11:20)
[2023-11-14] MEDS: ACETAMINOPHEN 325 MG TABLET (FP) PO ONE (11:25)
[2023-11-14] MEDS: DARATUMUMAB-HYALURONIDASE-FIHJ (FASPRO) 15 ML VIAL SQ ONE (11:56)
[2023-11-14] MEDS: BORTEZOMIB 2.5 MG/ML SUB-Q INJECTION SQ ONE (11:57)
[2023-11-14 15:54] VITALS: BP 122/71; PULSE 84; RESP 16; TEMP 97.4
== END 2023-11-14 12:40 | disposition home or self-care (01) ==
LOC: JONCCHEMO 09:20 → J7W 09:21 → JONCCHEMO 12:40
PROVIDERS: ATTEND Internal Medicine Hematology & Oncology
PROC: 3E01305 Introduction of Other Antineoplastic into Subcutaneous Tissue, Percutaneous Approach (ICD-10-PCS; principal; 2023-11-14)
PROC: 3E033GC Introduction of Other Therapeutic Substance into Peripheral Vein, Percutaneous Approach (ICD-10-PCS; 2023-11-14)
DX: Z51.11 Encounter for antineoplastic chemotherapy (principal); C90.00 Multiple myeloma not having achieved remission
CPT/HCPCS: 36415; 80048; 80076; 85025; 96374; 96401; J9041; J9144

== ENCOUNTER 2023-11-21 08:50 | Day surgery (SDC) | payer OTHER ==
[2023-11-21 09:31] LABS: BASO % 0.2 % (0-2.0); EOS % 1.4 % (0-4.5); HEMATOCRIT 23.2 % (32.4-45.2); LYMPH % 14.9 % (8-40); MCH 31.3 pg (25.7-33.7); MCHC 34.7 g/dl (32.0-36.0); MEAN CELL VOLUME 90.3 fl (80-96); MEAN PLT VOLUME 8.3 fl (7.5-11.1); MONO % 14.6 % (3.8-10.2); NEUT % 68.9 % (42.8-82.8); PLATELET COUNT 231 10^3/uL (134-434); RBC 2.57 M/mm3 (3.60-5.2); RDW 14.4 % (11.6-15.6); WHITE BLOOD COUNT 8.4 K/mm3 (4.0-10.0)
[2023-11-21 09:50] LABS: CHLORIDE 109 mmol/L (98-107); POTASSIUM 4.6 mmol/L (3.5-5.1); SODIUM 137 mmol/L (136-145)
[2023-11-21 09:52] LABS: CALCIUM 9.3 mg/dL (8.5-10.1)
[2023-11-21 09:53] LABS: ALBUMIN 3.1 g/dl (3.4-5.0); GLUCOSE,RANDOM 173 mg/dL (74-106)
[2023-11-21 09:54] LABS: ANION GAP 4 mmol/L (4-13); CO2 24 mmol/L (21-32)
[2023-11-21 09:55] LABS: BILIRUBIN,DIRECT < 0.1 mg/dL (0.0-0.2)
[2023-11-21 09:56] LABS: BLOOD UREA NITROGEN 22.9 mg/dL (7-18); SGPT/ALT 18 U/L (13-61)
[2023-11-21 09:57] LABS: BILIRUBIN,TOTAL 0.3 mg/dL (0.2-1); TOT PROT 6.3 g/dl (6.4-8.2)
[2023-11-21 09:58] LABS: SGOT/AST 8 U/L (15-37)
[2023-11-21 09:59] LABS: CREATININE 0.9 mg/dL (0.55-1.3)
[2023-11-21 10:04] LABS: ALK PHOS 206 U/L (45-117)
[2023-11-21] MEDS: DEXAMETHASONE SODIUM PHOSPHATE 40 MG in SODIUM CHLORIDE 50 ML IVPB ONE (10:11)
[2023-11-21] MEDS: BORTEZOMIB 2.5 MG/ML SUB-Q INJECTION SQ ONE (10:54)
[2023-11-21 14:16] VITALS: RESP 18; TEMP 98
[2023-11-21 14:21] VITALS: BP 128/66; PULSE 82
== END 2023-11-21 11:30 | disposition home or self-care (01) ==
LOC: JONCCHEMO 08:50 → J7W 08:56 → JONCCHEMO 11:30
PROVIDERS: ATTEND Internal Medicine Hematology & Oncology
PROC: 3E01305 Introduction of Other Antineoplastic into Subcutaneous Tissue, Percutaneous Approach (ICD-10-PCS; principal; 2023-11-21)
PROC: 3E033GC Introduction of Other Therapeutic Substance into Peripheral Vein, Percutaneous Approach (ICD-10-PCS; 2023-11-21)
DX: Z51.11 Encounter for antineoplastic chemotherapy (principal); C90.00 Multiple myeloma not having achieved remission
CPT/HCPCS: 36415; 80048; 80076; 85025; 96374; 96401; J9041

== ENCOUNTER 2023-11-28 09:02 | Day surgery (SDC) | payer OTHER ==
[2023-11-28 09:36] LABS: BASO % 0.1 % (0-2.0); EOS % 2.1 % (0-4.5); HEMATOCRIT 24.3 % (32.4-45.2); HEMOGLOBIN 8.3 GM/dL (10.7-15.3); LYMPH % 16.1 % (8-40); MCH 30.6 pg (25.7-33.7); MCHC 34.1 g/dl (32.0-36.0); MEAN CELL VOLUME 89.8 fl (80-96); MEAN PLT VOLUME 8.3 fl (7.5-11.1); MONO % 12.5 % (3.8-10.2); NEUT % 69.2 % (42.8-82.8); PLATELET COUNT 252 10^3/uL (134-434); RBC 2.71 M/mm3 (3.60-5.2); RDW 14.3 % (11.6-15.6)
[2023-11-28 09:52] LABS: CALCIUM 8.8 mg/dL (8.5-10.1)
[2023-11-28 09:53] LABS: ALBUMIN 3.3 g/dl (3.4-5.0); BLOOD UREA NITROGEN 20.3 mg/dL (7-18)
[2023-11-28 09:56] LABS: BILIRUBIN,DIRECT 0.1 mg/dL (0.0-0.2); CREATININE 0.9 mg/dL (0.55-1.3)
[2023-11-28 09:57] LABS: BILIRUBIN,TOTAL 0.3 mg/dL (0.2-1); TOT PROT 6.8 g/dl (6.4-8.2)
[2023-11-28] MEDS: DEXAMETHASONE SODIUM PHOSPHATE 40 MG in SODIUM CHLORIDE 50 ML IVPB ONE (10:15)
[2023-11-28] MEDS: BORTEZOMIB 2.5 MG/ML SUB-Q INJECTION SQ ONE (11:24)
[2023-11-28 13:34] VITALS: RESP 18; TEMP 98.2
[2023-11-28 13:44] VITALS: BP 147/66; PULSE 78
[2023-11-29 17:09] LABS: FREE KAPPA,SERUM 17.1 mg/L (3.3-19.4)
== END 2023-11-28 13:50 | disposition home or self-care (01) ==
LOC: JONCCHEMO 09:02 → J7W 09:03 → JONCCHEMO 13:50
PROVIDERS: ATTEND Internal Medicine Hematology & Oncology
PROC: 3E01305 Introduction of Other Antineoplastic into Subcutaneous Tissue, Percutaneous Approach (ICD-10-PCS; principal; 2023-11-28)
PROC: 3E033GC Introduction of Other Therapeutic Substance into Peripheral Vein, Percutaneous Approach (ICD-10-PCS; 2023-11-28)
DX: Z51.11 Encounter for antineoplastic chemotherapy (principal); C90.00 Multiple myeloma not having achieved remission
CPT/HCPCS: 36415; 80048; 80076; 82784; 83883; 84155; 84165; 85025; 96374; 96375; 96401; J9041

== ENCOUNTER 2023-12-05 09:19 | Day surgery (SDC) | payer OTHER ==
[2023-12-05 10:03] LABS: BASO % 0.1 % (0-2.0); EOS % 1.7 % (0-4.5); HEMATOCRIT 25.7 % (32.4-45.2); HEMOGLOBIN 8.6 GM/dL (10.7-15.3); LYMPH % 14.4 % (8-40); MCHC 33.3 g/dl (32.0-36.0); MEAN CELL VOLUME 90.1 fl (80-96); MEAN PLT VOLUME 8.6 fl (7.5-11.1); MONO % 11.6 % (3.8-10.2); NEUT % 72.2 % (42.8-82.8); PLATELET COUNT 258 10^3/uL (134-434); RBC 2.85 M/mm3 (3.60-5.2); RDW 14.2 % (11.6-15.6); WHITE BLOOD COUNT 11.6 K/mm3 (4.0-10.0)
[2023-12-05 10:25] VITALS: RESP 20; TEMP 98
[2023-12-05 10:47] LABS: POTASSIUM 4.5 mmol/L (3.5-5.1)
[2023-12-05 10:51] LABS: ALBUMIN 3.3 g/dl (3.4-5.0); BLOOD UREA NITROGEN 20.2 mg/dL (7-18); CALCIUM 9.2 mg/dL (8.5-10.1)
[2023-12-05 10:55] LABS: BILIRUBIN,DIRECT 0.1 mg/dL (0.0-0.2); CREATININE 1.1 mg/dL (0.55-1.3)
[2023-12-05 10:56] LABS: BILIRUBIN,TOTAL 0.3 mg/dL (0.2-1); TOT PROT 6.8 g/dl (6.4-8.2)
[2023-12-05] MEDS: ACETAMINOPHEN 325 MG TABLET (FP) PO ONE (11:03)
[2023-12-05] MEDS: DEXAMETHASONE SODIUM PHOSPHATE 40 MG, DIPHENHYDRAMINE 50 MG in SODIUM CHLORIDE 100 ML IVPB ONE (11:03)
[2023-12-05] MEDS: DARATUMUMAB-HYALURONIDASE-FIHJ (FASPRO) 15 ML VIAL SQ ONE (11:45)
[2023-12-05] MEDS: BORTEZOMIB 2.5 MG/ML SUB-Q INJECTION SQ ONE (11:46)
[2023-12-05 12:21] VITALS: BP 121/58; PULSE 88
[2023-12-06 18:07] LABS: FREE KAPPA,SERUM 18.7 mg/L (3.3-19.4)
== END 2023-12-05 12:26 | disposition home or self-care (01) ==
LOC: JONCCHEMO 09:19 → J7W 09:20 → JONCCHEMO 12:26
PROVIDERS: ATTEND Internal Medicine Hematology & Oncology
PROC: 3E033GC Introduction of Other Therapeutic Substance into Peripheral Vein, Percutaneous Approach (ICD-10-PCS; principal; 2023-12-05)
DX: Z51.11 Encounter for antineoplastic chemotherapy (principal); C90.00 Multiple myeloma not having achieved remission
CPT/HCPCS: 36415; 80048; 80076; 82784; 83883; 84155; 84165; 85025; 96365; 96401; J9041; J9144

== ENCOUNTER 2023-12-12 09:06 | Day surgery (SDC) | payer OTHER ==
[2023-12-12 09:54] LABS: BASO % 0.1 % (0-2.0); EOS % 1.8 % (0-4.5); HEMOGLOBIN 8.1 GM/dL (10.7-15.3); LYMPH % 15.1 % (8-40); MCH 30.7 pg (25.7-33.7); MEAN CELL VOLUME 90.5 fl (80-96); MEAN PLT VOLUME 8.4 fl (7.5-11.1); MONO % 13.2 % (3.8-10.2); NEUT % 69.8 % (42.8-82.8); PLATELET COUNT 250 10^3/uL (134-434); RBC 2.65 M/mm3 (3.60-5.2); RDW 14.2 % (11.6-15.6); WHITE BLOOD COUNT 10.4 K/mm3 (4.0-10.0)
[2023-12-12 10:15] LABS: POTASSIUM 4.6 mmol/L (3.5-5.1)
[2023-12-12 10:17] LABS: ALBUMIN 3.2 g/dl (3.4-5.0); CALCIUM 8.9 mg/dL (8.5-10.1)
[2023-12-12 10:20] LABS: BILIRUBIN,DIRECT 0.1 mg/dL (0.0-0.2); CREATININE 0.8 mg/dL (0.55-1.3)
[2023-12-12 10:22] LABS: BILIRUBIN,TOTAL 0.3 mg/dL (0.2-1); TOT PROT 6.7 g/dl (6.4-8.2)
[2023-12-12] MEDS: DEXAMETHASONE SODIUM PHOSPHATE 40 MG in SODIUM CHLORIDE 50 ML IVPB ONE (10:30)
[2023-12-12] MEDS: BORTEZOMIB 2.5 MG/ML SUB-Q INJECTION SQ ONE (10:48)
[2023-12-12 14:08] VITALS: RESP 18; TEMP 98
[2023-12-12 14:13] VITALS: BP 122/60; PULSE 82
== END 2023-12-12 11:30 | disposition home or self-care (01) ==
LOC: JONCCHEMO 09:06 → J7W 09:07 → JONCCHEMO 11:30
PROVIDERS: ATTEND Internal Medicine Hematology & Oncology
PROC: 3E01305 Introduction of Other Antineoplastic into Subcutaneous Tissue, Percutaneous Approach (ICD-10-PCS; principal; 2023-12-12)
PROC: 3E033GC Introduction of Other Therapeutic Substance into Peripheral Vein, Percutaneous Approach (ICD-10-PCS; 2023-12-12)
DX: Z51.11 Encounter for antineoplastic chemotherapy (principal); C90.00 Multiple myeloma not having achieved remission
CPT/HCPCS: 36415; 80048; 80076; 85025; 96374; 96401; J9041

== ENCOUNTER 2023-12-19 09:39 | Day surgery (SDC) | payer OTHER ==
[2023-12-19 10:17] LABS: BASO % 0.1 % (0-2.0); EOS % 1.2 % (0-4.5); HEMATOCRIT 24.1 % (32.4-45.2); HEMOGLOBIN 8.1 GM/dL (10.7-15.3); LYMPH % 14.6 % (8-40); MCH 30.2 pg (25.7-33.7); MCHC 33.6 g/dl (32.0-36.0); MEAN CELL VOLUME 89.8 fl (80-96); MEAN PLT VOLUME 8.3 fl (7.5-11.1); MONO % 10.1 % (3.8-10.2); PLATELET COUNT 246 10^3/uL (134-434); RBC 2.69 M/mm3 (3.60-5.2); WHITE BLOOD COUNT 10.9 K/mm3 (4.0-10.0)
[2023-12-19 10:36] LABS: CHLORIDE 110 mmol/L (98-107); POTASSIUM 4.7 mmol/L (3.5-5.1); SODIUM 138 mmol/L (136-145)
[2023-12-19 10:38] LABS: ANION GAP 5 mmol/L (4-13); BLOOD UREA NITROGEN 26.2 mg/dL (7-18); CO2 24 mmol/L (21-32); GLUCOSE,RANDOM 190 mg/dL (74-106)
[2023-12-19 10:39] LABS: ALBUMIN 3.1 g/dl (3.4-5.0)
[2023-12-19 10:42] LABS: BILIRUBIN,DIRECT 0.1 mg/dL (0.0-0.2); CREATININE 0.9 mg/dL (0.55-1.3)
[2023-12-19 10:45] LABS: BILIRUBIN,TOTAL 0.2 mg/dL (0.2-1); TOT PROT 6.6 g/dl (6.4-8.2)
[2023-12-19] MEDS: DEXAMETHASONE SODIUM PHOSPHATE 40 MG in SODIUM CHLORIDE 50 ML IVPB ONE (11:29)
[2023-12-19] MEDS: BORTEZOMIB 2.5 MG/ML SUB-Q INJECTION SQ ONE (12:25)
[2023-12-19 14:13] VITALS: BP 121/74; PULSE 85; RESP 20; TEMP 98.5
== END 2023-12-19 12:45 | disposition home or self-care (01) ==
LOC: JONCCHEMO 09:39 → J7W 09:39 → JONCCHEMO 12:45
PROVIDERS: ATTEND Internal Medicine Hematology & Oncology
PROC: 3E01305 Introduction of Other Antineoplastic into Subcutaneous Tissue, Percutaneous Approach (ICD-10-PCS; principal; 2023-12-19)
PROC: 3E033GC Introduction of Other Therapeutic Substance into Peripheral Vein, Percutaneous Approach (ICD-10-PCS; 2023-12-19)
DX: Z51.11 Encounter for antineoplastic chemotherapy (principal); C90.00 Multiple myeloma not having achieved remission
CPT/HCPCS: 36415; 80048; 80076; 85025; 96365; 96401; J9041

== ENCOUNTER 2023-12-26 09:14 | Day surgery (SDC) | payer OTHER ==
[2023-12-26 09:42] LABS: BASO % 0.1 % (0-2.0); EOS % 1.2 % (0-4.5); HEMATOCRIT 25.5 % (32.4-45.2); HEMOGLOBIN 8.5 GM/dL (10.7-15.3); LYMPH % 17.3 % (8-40); MCH 30.2 pg (25.7-33.7); MCHC 33.4 g/dl (32.0-36.0); MEAN CELL VOLUME 90.2 fl (80-96); MEAN PLT VOLUME 8.2 fl (7.5-11.1); NEUT % 71.4 % (42.8-82.8); PLATELET COUNT 284 10^3/uL (134-434); RBC 2.82 M/mm3 (3.60-5.2); RDW 14.2 % (11.6-15.6); WHITE BLOOD COUNT 10.6 K/mm3 (4.0-10.0)
[2023-12-26 10:13] LABS: POTASSIUM 5.4 mmol/L (3.5-5.1)
[2023-12-26 10:15] LABS: ALBUMIN 3.3 g/dl (3.4-5.0); BLOOD UREA NITROGEN 26.4 mg/dL (7-18); CALCIUM 9.2 mg/dL (8.5-10.1)
[2023-12-26 10:17] LABS: BILIRUBIN,DIRECT 0.1 mg/dL (0.0-0.2)
[2023-12-26 10:20] LABS: BILIRUBIN,TOTAL 0.2 mg/dL (0.2-1); TOT PROT 6.8 g/dl (6.4-8.2)
[2023-12-26] MEDS: ACETAMINOPHEN 325 MG TABLET (FP) PO ONE (10:46)
[2023-12-26] MEDS: DEXAMETHASONE SODIUM PHOSPHATE 40 MG, DIPHENHYDRAMINE 50 MG in SODIUM CHLORIDE 100 ML IVPB ONE (10:47)
[2023-12-26] MEDS: DARATUMUMAB-HYALURONIDASE-FIHJ (FASPRO) 15 ML VIAL SQ ONE (12:16)
[2023-12-26] MEDS: SODIUM POLYSTYRENE SULFONATE 15 GM/60 ML BOTTLE PO ONE (12:20)
[2023-12-26] MEDS: BORTEZOMIB 2.5 MG/ML SUB-Q INJECTION SQ ONE (12:20)
[2023-12-26 15:45] VITALS: BP 124/60; PULSE 85; RESP 20; TEMP 98.3
[2023-12-27 17:07] LABS: FREE KAPPA,SERUM 15.5 mg/L (3.3-19.4)
== END 2023-12-26 12:40 | disposition home or self-care (01) ==
LOC: JONCCHEMO 09:14 → J7W 09:15 → JONCCHEMO 12:40
PROVIDERS: ATTEND Internal Medicine Hematology & Oncology
PROC: 3E01305 Introduction of Other Antineoplastic into Subcutaneous Tissue, Percutaneous Approach (ICD-10-PCS; principal; 2023-12-26)
PROC: 3E01305 Introduction of Other Antineoplastic into Subcutaneous Tissue, Percutaneous Approach (ICD-10-PCS; 2023-12-26)
PROC: 3E033GC Introduction of Other Therapeutic Substance into Peripheral Vein, Percutaneous Approach (ICD-10-PCS; 2023-12-26)
DX: Z51.11 Encounter for antineoplastic chemotherapy (principal); C90.00 Multiple myeloma not having achieved remission
CPT/HCPCS: 36415; 80048; 80076; 82784; 83883; 84155; 84165; 85025; J9041; J9144

== ENCOUNTER 2024-01-02 09:09 | Day surgery (SDC) | payer OTHER ==
[2024-01-02 10:05] LABS: BASO % 0.1 % (0-2.0); EOS % 0.8 % (0-4.5); HEMATOCRIT 23.9 % (32.4-45.2); LYMPH % 12.6 % (8-40); MCH 30.4 pg (25.7-33.7); MCHC 33.3 g/dl (32.0-36.0); MEAN PLT VOLUME 8.4 fl (7.5-11.1); MONO % 10.6 % (3.8-10.2); NEUT % 75.9 % (42.8-82.8); PLATELET COUNT 281 10^3/uL (134-434); RBC 2.62 M/mm3 (3.60-5.2); RDW 13.7 % (11.6-15.6); WHITE BLOOD COUNT 11.6 K/mm3 (4.0-10.0)
[2024-01-02 10:27] LABS: CHLORIDE 112 mmol/L (98-107); POTASSIUM 4.4 mmol/L (3.5-5.1); SODIUM 140 mmol/L (136-145)
[2024-01-02 10:29] LABS: CALCIUM 8.8 mg/dL (8.5-10.1)
[2024-01-02 10:30] LABS: ANION GAP 5 mmol/L (4-13); BLOOD UREA NITROGEN 24.5 mg/dL (7-18); CO2 23 mmol/L (21-32); GLUCOSE,RANDOM 189 mg/dL (74-106)
[2024-01-02 10:33] LABS: BILIRUBIN,DIRECT 0.1 mg/dL (0.0-0.2); SGOT/AST 12 U/L (15-37); SGPT/ALT 28 U/L (13-61)
[2024-01-02 10:35] LABS: BILIRUBIN,TOTAL 0.2 mg/dL (0.2-1); TOT PROT 6.5 g/dl (6.4-8.2)
[2024-01-02 10:36] LABS: ALK PHOS 223 U/L (45-117)
[2024-01-02 10:43] LABS: CREATININE 0.8 mg/dL (0.55-1.3)
[2024-01-02] MEDS: DEXAMETHASONE SODIUM PHOSPHATE 40 MG in SODIUM CHLORIDE 50 ML IVPB ONE (11:06)
[2024-01-02] MEDS: BORTEZOMIB 2.5 MG/ML SUB-Q INJECTION SQ ONE (12:20)
[2024-01-02 16:38] VITALS: BP 138/71; PULSE 84; RESP 18; TEMP 98.4
== END 2024-01-02 12:35 | disposition home or self-care (01) ==
LOC: J7W 09:09 → JONCCHEMO 09:09
PROVIDERS: ATTEND Internal Medicine Hematology & Oncology
PROC: 3E033GC Introduction of Other Therapeutic Substance into Peripheral Vein, Percutaneous Approach (ICD-10-PCS; principal; 2024-01-02)
DX: Z51.11 Encounter for antineoplastic chemotherapy (principal); C90.00 Multiple myeloma not having achieved remission
CPT/HCPCS: 36415; 80048; 80076; 85025; 96365; 96401; J9041

== ENCOUNTER 2024-01-09 09:33 | Day surgery (SDC) | payer OTHER ==
[2024-01-09 10:13] LABS: BASO % 0.1 % (0-2.0); HEMATOCRIT 23.8 % (32.4-45.2); LYMPH % 13.2 % (8-40); MCH 30.2 pg (25.7-33.7); MCHC 33.6 g/dl (32.0-36.0); MEAN CELL VOLUME 89.7 fl (80-96); MEAN PLT VOLUME 8.3 fl (7.5-11.1); MONO % 12.1 % (3.8-10.2); NEUT % 73.6 % (42.8-82.8); PLATELET COUNT 265 10^3/uL (134-434); RBC 2.65 M/mm3 (3.60-5.2); RDW 14.3 % (11.6-15.6); WHITE BLOOD COUNT 9.9 K/mm3 (4.0-10.0)
[2024-01-09 10:20] VITALS: BP 160/67; PULSE 76; RESP 20; TEMP 98.1
[2024-01-09 10:23] LABS: POTASSIUM 5.1 mmol/L (3.5-5.1)
[2024-01-09 10:26] LABS: ALBUMIN 2.9 g/dl (3.4-5.0); BLOOD UREA NITROGEN 21.3 mg/dL (7-18)
[2024-01-09 10:29] LABS: BILIRUBIN,DIRECT 0.1 mg/dL (0.0-0.2)
[2024-01-09 10:31] LABS: BILIRUBIN,TOTAL 0.2 mg/dL (0.2-1); TOT PROT 6.3 g/dl (6.4-8.2)
[2024-01-09] MEDS: DEXAMETHASONE SODIUM PHOSPHATE 40 MG in SODIUM CHLORIDE 50 ML IVPB ONE (10:43)
[2024-01-09] MEDS: BORTEZOMIB 2.5 MG/ML SUB-Q INJECTION SQ ONE (11:25)
== END 2024-01-09 11:30 | disposition home or self-care (01) ==
LOC: JONCCHEMO 09:33 → J7W 09:33 → JONCCHEMO 11:30
PROVIDERS: ATTEND Internal Medicine Hematology & Oncology
PROC: 3E01305 Introduction of Other Antineoplastic into Subcutaneous Tissue, Percutaneous Approach (ICD-10-PCS; principal; 2024-01-09)
PROC: 3E033GC Introduction of Other Therapeutic Substance into Peripheral Vein, Percutaneous Approach (ICD-10-PCS; 2024-01-09)
DX: Z51.11 Encounter for antineoplastic chemotherapy (principal); C90.00 Multiple myeloma not having achieved remission
CPT/HCPCS: 36415; 80048; 80076; 85025; 96374; 96401; J9041

== ENCOUNTER 2024-01-16 09:27 | Day surgery (SDC) | payer OTHER ==
[2024-01-16 10:20] LABS: BASO % 0.1 % (0-2.0); EOS % 0.8 % (0-4.5); HEMOGLOBIN 8.1 GM/dL (10.7-15.3); LYMPH % 9.2 % (8-40); MCH 29.2 pg (25.7-33.7); MCHC 32.3 g/dl (32.0-36.0); MEAN CELL VOLUME 90.4 fl (80-96); MEAN PLT VOLUME 8.7 fl (7.5-11.1); MONO % 9.8 % (3.8-10.2); NEUT % 80.1 % (42.8-82.8); PLATELET COUNT 262 10^3/uL (134-434); RBC 2.76 M/mm3 (3.60-5.2); RDW 13.9 % (11.6-15.6)
[2024-01-16 10:41] LABS: BLOOD UREA NITROGEN 27.1 mg/dL (7-18); CALCIUM 8.9 mg/dL (8.5-10.1)
[2024-01-16 10:45] LABS: BILIRUBIN,DIRECT 0.1 mg/dL (0.0-0.2); CREATININE 1.1 mg/dL (0.55-1.3)
[2024-01-16 10:47] LABS: BILIRUBIN,TOTAL 0.3 mg/dL (0.2-1); TOT PROT 6.3 g/dl (6.4-8.2)
[2024-01-16] MEDS: ACETAMINOPHEN 325 MG TABLET (FP) PO ONE (11:51)
[2024-01-16] MEDS: DEXAMETHASONE SODIUM PHOSPHATE 40 MG, DIPHENHYDRAMINE 50 MG in SODIUM CHLORIDE 100 ML IVPB ONE (11:52)
[2024-01-16] MEDS: DARATUMUMAB-HYALURONIDASE-FIHJ (FASPRO) 15 ML VIAL SQ ONE (12:29)
[2024-01-16] MEDS: BORTEZOMIB 2.5 MG/ML SUB-Q INJECTION SQ ONE (12:30)
[2024-01-16 14:48] VITALS: BP 145/63; PULSE 94; RESP 18; TEMP 98.8
[2024-01-17 18:10] LABS: FREE KAPPA,SERUM 16.1 mg/L (3.3-19.4); IG A QN SERUM. 59 mg/dL (87-352)
== END 2024-01-16 13:05 | disposition home or self-care (01) ==
LOC: JONCCHEMO 09:27 → J7W 09:28 → JONCCHEMO 13:05
PROVIDERS: ATTEND Internal Medicine Hematology & Oncology
PROC: 3E033GC Introduction of Other Therapeutic Substance into Peripheral Vein, Percutaneous Approach (ICD-10-PCS; principal; 2024-01-16)
PROC: 3E01305 Introduction of Other Antineoplastic into Subcutaneous Tissue, Percutaneous Approach (ICD-10-PCS; 2024-01-16)
PROC: 3E01305 Introduction of Other Antineoplastic into Subcutaneous Tissue, Percutaneous Approach (ICD-10-PCS; 2024-01-16)
DX: Z51.11 Encounter for antineoplastic chemotherapy (principal); C90.00 Multiple myeloma not having achieved remission
CPT/HCPCS: 36415; 80048; 80076; 82784; 83883; 84155; 84165; 85025; 96365; 96401; J9041; J9144

== ENCOUNTER 2024-01-23 09:24 | Day surgery (SDC) | payer OTHER ==
[2024-01-23 10:06] LABS: BASO % 0.1 % (0-2.0); EOS % 0.6 % (0-4.5); HEMATOCRIT 24.2 % (32.4-45.2); HEMOGLOBIN 7.7 GM/dL (10.7-15.3); LYMPH % 9.9 % (8-40); MCH 28.9 pg (25.7-33.7); MEAN CELL VOLUME 90.3 fl (80-96); MONO % 11.1 % (3.8-10.2); NEUT % 78.3 % (42.8-82.8); PLATELET COUNT 275 10^3/uL (134-434); RBC 2.68 M/mm3 (3.60-5.2); RDW 13.8 % (11.6-15.6); WHITE BLOOD COUNT 11.7 K/mm3 (4.0-10.0)
[2024-01-23 10:30] LABS: POTASSIUM 4.4 mmol/L (3.5-5.1)
[2024-01-23 10:32] LABS: ALBUMIN 2.7 g/dl (3.4-5.0); BLOOD UREA NITROGEN 14.1 mg/dL (7-18)
[2024-01-23 10:34] LABS: BILIRUBIN,DIRECT 0.1 mg/dL (0.0-0.2); CREATININE 0.8 mg/dL (0.55-1.3)
[2024-01-23 10:36] LABS: TOT PROT 6.5 g/dl (6.4-8.2)
[2024-01-23 10:56] LABS: BILIRUBIN,TOTAL 0.3 mg/dL (0.2-1)
[2024-01-23 11:02] VITALS: RESP 20; TEMP 98.2
[2024-01-23] MEDS: DEXAMETHASONE SODIUM PHOSPHATE 40 MG in SODIUM CHLORIDE 50 ML IVPB ONE (11:38)
[2024-01-23] MEDS: BORTEZOMIB 2.5 MG/ML SUB-Q INJECTION SQ ONE (12:08)
[2024-01-23 12:43] VITALS: BP 149/67; PULSE 94
[2024-01-24 18:12] LABS: FREE KAPPA,SERUM 21.6 mg/L (3.3-19.4); IG A QN SERUM. 65 mg/dL (87-352)
== END 2024-01-23 12:45 | disposition home or self-care (01) ==
LOC: JONCCHEMO 09:24 → J7W 09:30 → JONCCHEMO 12:45
PROVIDERS: ATTEND Internal Medicine Hematology & Oncology
PROC: 3E033GC Introduction of Other Therapeutic Substance into Peripheral Vein, Percutaneous Approach (ICD-10-PCS; principal; 2024-01-23)
DX: Z51.11 Encounter for antineoplastic chemotherapy (principal); C90.00 Multiple myeloma not having achieved remission
CPT/HCPCS: 36415; 80048; 80076; 82784; 83883; 84155; 84165; 85025; 96374; 96401; J9041

== ENCOUNTER 2024-01-30 09:23 | Day surgery (SDC) | payer OTHER ==
[2024-01-30 09:57] LABS: BASO % 0.1 % (0-2.0); EOS % 1.6 % (0-4.5); HEMATOCRIT 24.3 % (32.4-45.2); LYMPH % 12.5 % (8-40); MCH 29.1 pg (25.7-33.7); MCHC 33.1 g/dl (32.0-36.0); MEAN CELL VOLUME 87.9 fl (80-96); MEAN PLT VOLUME 8.4 fl (7.5-11.1); MONO % 13.2 % (3.8-10.2); NEUT % 72.6 % (42.8-82.8); PLATELET COUNT 273 10^3/uL (134-434); RBC 2.77 M/mm3 (3.60-5.2); RDW 13.7 % (11.6-15.6); WHITE BLOOD COUNT 11.1 K/mm3 (4.0-10.0)
[2024-01-30 10:53] LABS: POTASSIUM 4.7 mmol/L (3.5-5.1)
[2024-01-30 10:55] LABS: CALCIUM 9.2 mg/dL (8.5-10.1)
[2024-01-30 10:56] LABS: ALBUMIN 2.8 g/dl (3.4-5.0); BLOOD UREA NITROGEN 17.4 mg/dL (7-18)
[2024-01-30 10:58] LABS: BILIRUBIN,DIRECT 0.1 mg/dL (0.0-0.2)
[2024-01-30 10:59] LABS: CREATININE 0.9 mg/dL (0.55-1.3)
[2024-01-30 11:00] LABS: BILIRUBIN,TOTAL 0.3 mg/dL (0.2-1); TOT PROT 6.6 g/dl (6.4-8.2)
[2024-01-30] MEDS: DEXAMETHASONE INJECTION 40 MG in SODIUM CHLORIDE 50 ML IVPB ONE (11:33)
[2024-01-30 11:59] VITALS: BP 150/72; PULSE 107; RESP 20; TEMP 98.4
[2024-01-30] MEDS: BORTEZOMIB 2.5 MG/ML SUB-Q INJECTION SQ ONE (12:05)
== END 2024-01-30 12:35 | disposition home or self-care (01) ==
LOC: JONCCHEMO 09:23 → J7W 09:30 → JONCCHEMO 12:35
PROVIDERS: ATTEND Internal Medicine Hematology & Oncology
PROC: 3E033GC Introduction of Other Therapeutic Substance into Peripheral Vein, Percutaneous Approach (ICD-10-PCS; principal; 2024-01-30)
PROC: 3E033GC Introduction of Other Therapeutic Substance into Peripheral Vein, Percutaneous Approach (ICD-10-PCS; 2024-01-30)
DX: Z51.11 Encounter for antineoplastic chemotherapy (principal); C90.00 Multiple myeloma not having achieved remission
CPT/HCPCS: 36415; 80048; 80076; 85025; 96365; 96401; J1100; J9041

== ENCOUNTER 2024-02-06 09:35 | Day surgery (SDC) | payer OTHER ==
[2024-02-06 10:35] LABS: BASO % 0.2 % (0-2.0); EOS % 1.1 % (0-4.5); HEMATOCRIT 24.4 % (32.4-45.2); HEMOGLOBIN 7.9 GM/dL (10.7-15.3); LYMPH % 6.5 % (8-40); MCH 28.2 pg (25.7-33.7); MCHC 32.5 g/dl (32.0-36.0); MEAN CELL VOLUME 86.7 fl (80-96); MEAN PLT VOLUME 8.6 fl (7.5-11.1); MONO % 9.3 % (3.8-10.2); NEUT % 82.9 % (42.8-82.8); PLATELET COUNT 288 10^3/uL (134-434); RBC 2.81 M/mm3 (3.60-5.2); RDW 13.5 % (11.6-15.6); WHITE BLOOD COUNT 11.9 K/mm3 (4.0-10.0)
[2024-02-06 11:03] LABS: POTASSIUM 4.5 mmol/L (3.5-5.1)
[2024-02-06 11:05] LABS: CALCIUM 9.2 mg/dL (8.5-10.1)
[2024-02-06 11:06] LABS: ALBUMIN 2.9 g/dl (3.4-5.0); BLOOD UREA NITROGEN 18.8 mg/dL (7-18)
[2024-02-06 11:08] LABS: BILIRUBIN,DIRECT 0.1 mg/dL (0.0-0.2)
[2024-02-06 11:09] LABS: CREATININE 1.1 mg/dL (0.55-1.3)
[2024-02-06 11:10] LABS: BILIRUBIN,TOTAL 0.3 mg/dL (0.2-1)
[2024-02-06 11:11] LABS: TOT PROT 6.7 g/dl (6.4-8.2)
[2024-02-06] MEDS: DEXAMETHASONE SODIUM PHOSPHATE 40 MG, DIPHENHYDRAMINE 50 MG in SODIUM CHLORIDE 100 ML IVPB ONE (11:51)
[2024-02-06] MEDS: ACETAMINOPHEN 325 MG TABLET (FP) PO ONE (11:51)
[2024-02-06] MEDS: BORTEZOMIB 2.5 MG/ML SUB-Q INJECTION SQ ONE (12:35)
[2024-02-06] MEDS: DARATUMUMAB-HYALURONIDASE-FIHJ (FASPRO) 15 ML VIAL SQ ONE (12:36)
[2024-02-06 13:20] VITALS: RESP 20; TEMP 98.9
[2024-02-06 13:28] VITALS: BP 136/80; PULSE 99
[2024-02-07 16:08] LABS: FREE KAPPA,SERUM 17.9 mg/L (3.3-19.4)
[2024-02-08 08:11] LABS: IG A QN SERUM. 60 mg/dL (87-352)
== END 2024-02-06 12:50 | disposition home or self-care (01) ==
LOC: JONCCHEMO 09:35 → J7W 09:37 → JONCCHEMO 12:50
PROVIDERS: ATTEND Internal Medicine Hematology & Oncology
PROC: 3E013GC Introduction of Other Therapeutic Substance into Subcutaneous Tissue, Percutaneous Approach (ICD-10-PCS; principal; 2024-02-06)
PROC: 3E013GC Introduction of Other Therapeutic Substance into Subcutaneous Tissue, Percutaneous Approach (ICD-10-PCS; 2024-02-06)
DX: Z51.11 Encounter for antineoplastic chemotherapy (principal); C90.00 Multiple myeloma not having achieved remission
CPT/HCPCS: 36415; 80048; 80076; 82784; 83883; 84155; 84165; 85025; 96401; J9041; J9144

== ENCOUNTER 2024-02-13 08:53 | Day surgery (SDC) | payer OTHER ==
[2024-02-13 09:50] LABS: BASO % 0.2 % (0-2.0); EOS % 0.4 % (0-4.5); HEMATOCRIT 21.7 % (32.4-45.2); LYMPH % 10.9 % (8-40); MCH 28.2 pg (25.7-33.7); MCHC 32.2 g/dl (32.0-36.0); MEAN CELL VOLUME 87.6 fl (80-96); MEAN PLT VOLUME 8.4 fl (7.5-11.1); MONO % 11.3 % (3.8-10.2); NEUT % 77.2 % (42.8-82.8); PLATELET COUNT 301 10^3/uL (134-434); RBC 2.47 M/mm3 (3.60-5.2); WHITE BLOOD COUNT 12.9 K/mm3 (4.0-10.0)
[2024-02-13 09:54] VITALS: TEMP 98.7
[2024-02-13 10:09] LABS: CHLORIDE 106 mmol/L (98-107); POTASSIUM 4.9 mmol/L (3.5-5.1); SODIUM 138 mmol/L (136-145)
[2024-02-13 10:11] LABS: CALCIUM 9.3 mg/dL (8.5-10.1)
[2024-02-13 10:12] LABS: ALBUMIN 2.7 g/dl (3.4-5.0); ANION GAP 9 mmol/L (4-13); BLOOD UREA NITROGEN 17.1 mg/dL (7-18); CO2 23 mmol/L (21-32); GLUCOSE,RANDOM 237 mg/dL (74-106)
[2024-02-13 10:15] LABS: BILIRUBIN,DIRECT 0.1 mg/dL (0.0-0.2); CREATININE 0.9 mg/dL (0.55-1.3); SGOT/AST 4 U/L (15-37); SGPT/ALT 14 U/L (13-61)
[2024-02-13 10:16] LABS: BILIRUBIN,TOTAL 0.2 mg/dL (0.2-1)
[2024-02-13 10:17] LABS: TOT PROT 6.4 g/dl (6.4-8.2)
[2024-02-13 10:18] LABS: ALK PHOS 140 U/L (45-117)
[2024-02-13] MEDS: DEXAMETHASONE INJECTION 40 MG in SODIUM CHLORIDE 50 ML IVPB ONE (10:50)
[2024-02-13] MEDS: BORTEZOMIB 2.5 MG/ML SUB-Q INJECTION SQ ONE (11:29)
[2024-02-13 15:24] VITALS: BP 126/59; PULSE 91; RESP 20
== END 2024-02-13 12:15 | disposition home or self-care (01) ==
LOC: JONCCHEMO 08:53 → J7W 08:54 → JONCCHEMO 12:15
PROVIDERS: ATTEND Internal Medicine Hematology & Oncology
PROC: 3E033GC Introduction of Other Therapeutic Substance into Peripheral Vein, Percutaneous Approach (ICD-10-PCS; principal; 2024-02-13)
PROC: 3E01305 Introduction of Other Antineoplastic into Subcutaneous Tissue, Percutaneous Approach (ICD-10-PCS; 2024-02-13)
DX: Z51.11 Encounter for antineoplastic chemotherapy (principal); C90.00 Multiple myeloma not having achieved remission
CPT/HCPCS: 36415; 80048; 80076; 85025; 96365; 96401; J1100; J9041

== ENCOUNTER 2024-02-20 09:19 | Day surgery (SDC) | payer OTHER ==
[2024-02-20 10:10] LABS: CHLORIDE 104 mmol/L (98-107); POTASSIUM 4.7 mmol/L (3.5-5.1); SODIUM 135 mmol/L (136-145)
[2024-02-20 10:12] LABS: BASO % 0.2 % (0-2.0); EOS % 0.6 % (0-4.5); HEMATOCRIT 20.2 % (32.4-45.2); LYMPH % 10.3 % (8-40); MCH 28.5 pg (25.7-33.7); MCHC 33.2 g/dl (32.0-36.0); MEAN CELL VOLUME 85.8 fl (80-96); MEAN PLT VOLUME 7.8 fl (7.5-11.1); NEUT % 76.9 % (42.8-82.8); PLATELET COUNT 286 10^3/uL (134-434); RBC 2.35 M/mm3 (3.60-5.2); RDW 13.8 % (11.6-15.6); WHITE BLOOD COUNT 12.9 K/mm3 (4.0-10.0)
[2024-02-20 10:13] LABS: ALBUMIN 2.6 g/dl (3.4-5.0); ANION GAP 10 mmol/L (4-13); BLOOD UREA NITROGEN 16.3 mg/dL (7-18); CO2 21 mmol/L (21-32); GLUCOSE,RANDOM 229 mg/dL (74-106)
[2024-02-20 10:16] LABS: BILIRUBIN,DIRECT 0.1 mg/dL (0.0-0.2); HEMOGLOBIN 6.7 GM/dL (10.7-15.3); SGOT/AST 14 U/L (15-37); SGPT/ALT 17 U/L (13-61)
[2024-02-20 10:18] LABS: BILIRUBIN,TOTAL 0.6 mg/dL (0.2-1); TOT PROT 6.3 g/dl (6.4-8.2)
[2024-02-20 10:19] LABS: ALK PHOS 115 U/L (45-117)
[2024-02-20] MEDS: DEXAMETHASONE INJECTION 40 MG in SODIUM CHLORIDE 50 ML IVPB ONE (10:51)
[2024-02-20] MEDS: BORTEZOMIB 2.5 MG/ML SUB-Q INJECTION SQ ONE (11:38)
[2024-02-20 15:50] VITALS: BP 105/55; PULSE 89; RESP 20; TEMP 98.4
== END 2024-02-20 13:00 | disposition home or self-care (01) ==
LOC: JONCCHEMO 09:19 → J7W 09:20 → JONCCHEMO 13:00
PROVIDERS: ATTEND Internal Medicine Hematology & Oncology
PROC: 3E01305 Introduction of Other Antineoplastic into Subcutaneous Tissue, Percutaneous Approach (ICD-10-PCS; principal; 2024-02-20)
PROC: 3E033GC Introduction of Other Therapeutic Substance into Peripheral Vein, Percutaneous Approach (ICD-10-PCS; 2024-02-20)
DX: Z12.11 Encounter for screening for malignant neoplasm of colon (principal); C90.00 Multiple myeloma not having achieved remission
CPT/HCPCS: 36415; 36430; 80048; 80076; 85025; 86850; 86870; 86880; 86900; 86901; 86902; 86922; 96365; 96401; J1100; J9041; P9038; P9058

== ENCOUNTER 2024-02-27 13:34 | Day surgery (SDC) | payer OTHER ==
[2024-02-27 14:12] LABS: BASO % 0.1 % (0-2.0); EOS % 0.9 % (0-4.5); HEMATOCRIT 26.5 % (32.4-45.2); HEMOGLOBIN 8.6 GM/dL (10.7-15.3); LYMPH % 11.8 % (8-40); MCH 28.5 pg (25.7-33.7); MCHC 32.5 g/dl (32.0-36.0); MEAN CELL VOLUME 87.8 fl (80-96); MONO % 10.4 % (3.8-10.2); NEUT % 76.8 % (42.8-82.8); PLATELET COUNT 293 10^3/uL (134-434); RBC 3.01 M/mm3 (3.60-5.2); RDW 14.1 % (11.6-15.6); WHITE BLOOD COUNT 10.7 K/mm3 (4.0-10.0)
[2024-02-27 14:38] LABS: POTASSIUM 4.4 mmol/L (3.5-5.1); SODIUM 140 mmol/L (136-145)
[2024-02-27 14:39] LABS: CHLORIDE 110 mmol/L (98-107)
[2024-02-27 14:41] LABS: ALBUMIN 2.6 g/dl (3.4-5.0); ANION GAP 9 mmol/L (4-13); BLOOD UREA NITROGEN 22.9 mg/dL (7-18); CALCIUM 9.2 mg/dL (8.5-10.1); CO2 21 mmol/L (21-32); GLUCOSE,RANDOM 186 mg/dL (74-106)
[2024-02-27 14:44] LABS: BILIRUBIN,DIRECT 0.1 mg/dL (0.0-0.2); SGPT/ALT 16 U/L (13-61)
[2024-02-27 14:45] LABS: BILIRUBIN,TOTAL 0.2 mg/dL (0.2-1); CREATININE 0.9 mg/dL (0.55-1.3); SGOT/AST < 3 U/L (15-37); TOT PROT 6.6 g/dl (6.4-8.2)
[2024-02-27 14:46] LABS: ALK PHOS 142 U/L (45-117)
[2024-02-27] MEDS: DEXAMETHASONE SODIUM PHOSPHATE 40 MG, DIPHENHYDRAMINE 50 MG in SODIUM CHLORIDE 100 ML IVPB ONE (14:57)
[2024-02-27] MEDS: ACETAMINOPHEN 325 MG TABLET (FP) PO ONE (14:57)
[2024-02-27] MEDS: BORTEZOMIB 2.5 MG/ML SUB-Q INJECTION SQ ONE (16:21)
[2024-02-27] MEDS: DARATUMUMAB-HYALURONIDASE-FIHJ (FASPRO) 15 ML VIAL SQ ONE (16:23)
[2024-02-27 18:59] VITALS: BP 105/57; PULSE 87; RESP 18; TEMP 99.3
[2024-02-29 19:06] LABS: IG A QN SERUM. 56 mg/dL (87-352)
== END 2024-02-27 16:45 | disposition home or self-care (01) ==
LOC: JONCCHEMO 13:34 → J7W 13:34 → JONCCHEMO 16:45
PROVIDERS: ATTEND Internal Medicine Hematology & Oncology
PROC: 3E01305 Introduction of Other Antineoplastic into Subcutaneous Tissue, Percutaneous Approach (ICD-10-PCS; principal; 2024-02-27)
PROC: 3E01305 Introduction of Other Antineoplastic into Subcutaneous Tissue, Percutaneous Approach (ICD-10-PCS; 2024-02-27)
PROC: 3E033GC Introduction of Other Therapeutic Substance into Peripheral Vein, Percutaneous Approach (ICD-10-PCS; 2024-02-27)
DX: Z51.11 Encounter for antineoplastic chemotherapy (principal); C90.00 Multiple myeloma not having achieved remission
CPT/HCPCS: 36415; 80048; 80076; 82784; 83883; 84155; 84165; 85025; 96365; 96401; J9041; J9144

== ENCOUNTER 2024-03-05 09:09 | Day surgery (SDC) | payer OTHER ==
[2024-03-05 09:53] LABS: BASO % 0.1 % (0-2.0); EOS % 0.6 % (0-4.5); HEMATOCRIT 24.6 % (32.4-45.2); LYMPH % 12.3 % (8-40); MCH 27.8 pg (25.7-33.7); MCHC 32.3 g/dl (32.0-36.0); MEAN PLT VOLUME 8.1 fl (7.5-11.1); MONO % 11.8 % (3.8-10.2); NEUT % 75.2 % (42.8-82.8); PLATELET COUNT 301 10^3/uL (134-434); RBC 2.86 M/mm3 (3.60-5.2); RDW 14.2 % (11.6-15.6); WHITE BLOOD COUNT 11.8 K/mm3 (4.0-10.0)
[2024-03-05 10:27] LABS: POTASSIUM 4.5 mmol/L (3.5-5.1)
[2024-03-05 10:29] LABS: ALBUMIN 2.5 g/dl (3.4-5.0); BLOOD UREA NITROGEN 17.6 mg/dL (7-18)
[2024-03-05 10:31] LABS: BILIRUBIN,DIRECT 0.1 mg/dL (0.0-0.2)
[2024-03-05 10:32] LABS: CREATININE 0.9 mg/dL (0.55-1.3)
[2024-03-05 10:33] LABS: BILIRUBIN,TOTAL 0.4 mg/dL (0.2-1)
[2024-03-05] MEDS: DEXAMETHASONE INJECTION 40 MG in SODIUM CHLORIDE 50 ML IVPB ONE (10:39)
[2024-03-05 10:49] LABS: TOT PROT 6.2 g/dl (6.4-8.2)
[2024-03-05] MEDS: BORTEZOMIB 2.5 MG/ML SUB-Q INJECTION SQ ONE (10:59)
[2024-03-05 14:32] VITALS: TEMP 98.6
[2024-03-05 14:35] VITALS: BP 103/59; PULSE 88; RESP 18
== END 2024-03-05 11:20 | disposition home or self-care (01) ==
LOC: JONCCHEMO 09:09 → J7W 09:10 → JONCCHEMO 11:20
PROVIDERS: ATTEND Internal Medicine Hematology & Oncology
PROC: 3E033GC Introduction of Other Therapeutic Substance into Peripheral Vein, Percutaneous Approach (ICD-10-PCS; principal; 2024-03-05)
PROC: 3E01305 Introduction of Other Antineoplastic into Subcutaneous Tissue, Percutaneous Approach (ICD-10-PCS; 2024-03-05)
DX: Z51.11 Encounter for antineoplastic chemotherapy (principal); C90.00 Multiple myeloma not having achieved remission
CPT/HCPCS: 36415; 80048; 80076; 85025; 96374; 96401; J1100; J9041

== ENCOUNTER 2024-03-12 09:43 | Day surgery (SDC) | payer OTHER ==
[2024-03-12 10:13] LABS: BASO % 0.1 % (0-2.0); EOS % 0.5 % (0-4.5); HEMATOCRIT 25.8 % (32.4-45.2); HEMOGLOBIN 8.4 GM/dL (10.7-15.3); LYMPH % 7.5 % (8-40); MCHC 32.5 g/dl (32.0-36.0); MEAN CELL VOLUME 86.3 fl (80-96); MEAN PLT VOLUME 7.9 fl (7.5-11.1); MONO % 9.1 % (3.8-10.2); NEUT % 82.8 % (42.8-82.8); PLATELET COUNT 343 10^3/uL (134-434); RBC 2.99 M/mm3 (3.60-5.2); RDW 14.5 % (11.6-15.6); WHITE BLOOD COUNT 16.2 K/mm3 (4.0-10.0)
[2024-03-12 10:30] LABS: CHLORIDE 110 mmol/L (98-107); POTASSIUM 5.1 mmol/L (3.5-5.1); SODIUM 138 mmol/L (136-145)
[2024-03-12 10:31] LABS: CALCIUM 9.4 mg/dL (8.5-10.1)
[2024-03-12 10:32] LABS: ANION GAP 8 mmol/L (4-13); BLOOD UREA NITROGEN 17.2 mg/dL (7-18); CO2 20 mmol/L (21-32); GLUCOSE,RANDOM 180 mg/dL (74-106)
[2024-03-12 10:35] LABS: CREATININE 0.9 mg/dL (0.55-1.3)
[2024-03-12 10:42] LABS: ALBUMIN 2.6 g/dl (3.4-5.0)
[2024-03-12 10:45] LABS: BILIRUBIN,DIRECT 0.1 mg/dL (0.0-0.2)
[2024-03-12 10:47] LABS: BILIRUBIN,TOTAL 0.3 mg/dL (0.2-1); TOT PROT 6.7 g/dl (6.4-8.2)
[2024-03-12] MEDS: DEXAMETHASONE INJECTION 40 MG in SODIUM CHLORIDE 50 ML IVPB ONE (11:03)
[2024-03-12] MEDS: BORTEZOMIB 2.5 MG/ML SUB-Q INJECTION SQ ONE (11:39)
[2024-03-12 18:34] VITALS: BP 136/68; PULSE 93; RESP 20; TEMP 98.2
== END 2024-03-12 12:00 | disposition home or self-care (01) ==
LOC: JONCCHEMO 09:43 → J7W 09:44 → JONCCHEMO 12:00
PROVIDERS: ATTEND Internal Medicine Hematology & Oncology
PROC: 3E01305 Introduction of Other Antineoplastic into Subcutaneous Tissue, Percutaneous Approach (ICD-10-PCS; principal; 2024-03-12)
PROC: 3E033GC Introduction of Other Therapeutic Substance into Peripheral Vein, Percutaneous Approach (ICD-10-PCS; 2024-03-12)
DX: Z51.11 Encounter for antineoplastic chemotherapy (principal); C90.00 Multiple myeloma not having achieved remission
CPT/HCPCS: 36415; 80048; 80076; 85025; 96365; 96401; J1100; J9041

== ENCOUNTER 2024-03-19 12:21 | Day surgery (SDC) | payer OTHER ==
[2024-03-19 12:47] LABS: BASO % 0.2 % (0-2.0); EOS % 1.1 % (0-4.5); HEMATOCRIT 22.7 % (32.4-45.2); HEMOGLOBIN 7.3 GM/dL (10.7-15.3); LYMPH % 10.5 % (8-40); MCH 27.6 pg (25.7-33.7); MCHC 32.2 g/dl (32.0-36.0); MEAN CELL VOLUME 85.7 fl (80-96); MONO % 10.5 % (3.8-10.2); NEUT % 77.7 % (42.8-82.8); PLATELET COUNT 302 10^3/uL (134-434); RBC 2.65 M/mm3 (3.60-5.2); RDW 14.9 % (11.6-15.6); WHITE BLOOD COUNT 12.5 K/mm3 (4.0-10.0)
[2024-03-19 13:24] VITALS: RESP 20; TEMP 98.1
[2024-03-19 13:28] LABS: POTASSIUM 4.7 mmol/L (3.5-5.1)
[2024-03-19 13:30] LABS: CALCIUM 9.2 mg/dL (8.5-10.1)
[2024-03-19 13:31] LABS: ALBUMIN 2.5 g/dl (3.4-5.0); BLOOD UREA NITROGEN 17.8 mg/dL (7-18)
[2024-03-19 13:33] LABS: BILIRUBIN,DIRECT 0.1 mg/dL (0.0-0.2)
[2024-03-19 13:34] LABS: CREATININE 0.9 mg/dL (0.55-1.3)
[2024-03-19 13:35] LABS: BILIRUBIN,TOTAL 0.3 mg/dL (0.2-1); TOT PROT 6.4 g/dl (6.4-8.2)
[2024-03-19] MEDS: DEXAMETHASONE SODIUM PHOSPHATE 40 MG, DIPHENHYDRAMINE 50 MG in SODIUM CHLORIDE 100 ML IVPB ONE (13:46)
[2024-03-19] MEDS: ACETAMINOPHEN 325 MG TABLET (FP) PO ONE (13:47)
[2024-03-19] MEDS: DARATUMUMAB-HYALURONIDASE-FIHJ (FASPRO) 15 ML VIAL SQ ONE (14:36)
[2024-03-19] MEDS: BORTEZOMIB 2.5 MG/ML SUB-Q INJECTION SQ ONE (14:37)
[2024-03-19 14:49] VITALS: BP 134/67; PULSE 98
[2024-03-20 17:07] LABS: IG A QN SERUM. 57 mg/dL (87-352)
== END 2024-03-19 15:05 | disposition home or self-care (01) ==
LOC: JONCCHEMO 12:21 → J7W 12:22 → JONCCHEMO 15:05
PROVIDERS: ATTEND Internal Medicine Hematology & Oncology
PROC: 3E01305 Introduction of Other Antineoplastic into Subcutaneous Tissue, Percutaneous Approach (ICD-10-PCS; principal; 2024-03-19)
PROC: 3E033GC Introduction of Other Therapeutic Substance into Peripheral Vein, Percutaneous Approach (ICD-10-PCS; 2024-03-19)
DX: Z51.11 Encounter for antineoplastic chemotherapy (principal); C90.00 Multiple myeloma not having achieved remission
CPT/HCPCS: 36415; 80048; 80076; 82784; 83883; 84155; 84165; 85025; 96365; 96401; J9041; J9144

== ENCOUNTER 2024-03-26 09:40 | Day surgery (SDC) | payer OTHER ==
[2024-03-26 10:50] LABS: POTASSIUM 4.6 mmol/L (3.5-5.1)
[2024-03-26 10:52] LABS: ALBUMIN 2.5 g/dl (3.4-5.0); BLOOD UREA NITROGEN 24.4 mg/dL (7-18); CALCIUM 9.3 mg/dL (8.5-10.1)
[2024-03-26 10:55] LABS: BILIRUBIN,DIRECT 0.1 mg/dL (0.0-0.2); CREATININE 1.1 mg/dL (0.55-1.3)
[2024-03-26 10:57] LABS: BILIRUBIN,TOTAL 0.3 mg/dL (0.2-1); TOT PROT 6.7 g/dl (6.4-8.2)
[2024-03-26 11:00] LABS: BASO % 0.2 % (0-2.0); EOS % 0.8 % (0-4.5); HEMOGLOBIN 7.4 GM/dL (10.7-15.3); LYMPH % 11.8 % (8-40); MCHC 32.4 g/dl (32.0-36.0); MEAN CELL VOLUME 86.5 fl (80-96); MEAN PLT VOLUME 8.4 fl (7.5-11.1); MONO % 12.3 % (3.8-10.2); NEUT % 74.9 % (42.8-82.8); PLATELET COUNT 326 10^3/uL (134-434); RBC 2.66 M/mm3 (3.60-5.2); RDW 15.1 % (11.6-15.6); WHITE BLOOD COUNT 12.6 K/mm3 (4.0-10.0)
[2024-03-26] MEDS: DEXAMETHASONE INJECTION 40 MG in SODIUM CHLORIDE 50 ML IVPB ONE (11:22)
[2024-03-26] MEDS: BORTEZOMIB 2.5 MG/ML SUB-Q INJECTION SQ ONE (12:09)
[2024-03-26 15:49] VITALS: RESP 18; TEMP 98.4
[2024-03-26 15:57] VITALS: BP 119/59; PULSE 90
== END 2024-03-26 13:50 | disposition home or self-care (01) ==
LOC: JONCCHEMO 09:40 → J7W 09:41 → JONCCHEMO 13:50
PROVIDERS: ATTEND Internal Medicine Hematology & Oncology
PROC: 3E01305 Introduction of Other Antineoplastic into Subcutaneous Tissue, Percutaneous Approach (ICD-10-PCS; principal; 2024-03-26)
PROC: 3E033GC Introduction of Other Therapeutic Substance into Peripheral Vein, Percutaneous Approach (ICD-10-PCS; 2024-03-26)
DX: Z51.11 Encounter for antineoplastic chemotherapy (principal); C90.00 Multiple myeloma not having achieved remission
CPT/HCPCS: 36415; 80048; 80076; 85025; 96374; 96401; J1100; J9041

== ENCOUNTER 2024-04-02 09:24 | Day surgery (SDC) | payer OTHER ==
[2024-04-02 10:03] LABS: BASO % 0.1 % (0-2.0); HEMATOCRIT 22.2 % (32.4-45.2); LYMPH % 10.6 % (8-40); MCH 26.9 pg (25.7-33.7); MCHC 31.4 g/dl (32.0-36.0); MEAN CELL VOLUME 85.7 fl (80-96); MEAN PLT VOLUME 7.9 fl (7.5-11.1); MONO % 11.2 % (3.8-10.2); NEUT % 77.1 % (42.8-82.8); PLATELET COUNT 374 10^3/uL (134-434); RBC 2.58 M/mm3 (3.60-5.2); WHITE BLOOD COUNT 15.3 K/mm3 (4.0-10.0)
[2024-04-02 10:35] LABS: CHLORIDE 103 mmol/L (98-107); POTASSIUM 4.8 mmol/L (3.5-5.1); SODIUM 135 mmol/L (136-145)
[2024-04-02 10:38] LABS: ALBUMIN 2.5 g/dl (3.4-5.0); ANION GAP 10 mmol/L (4-13); BLOOD UREA NITROGEN 20.2 mg/dL (7-18); CALCIUM 9.4 mg/dL (8.5-10.1); CO2 22 mmol/L (21-32); GLUCOSE,RANDOM 207 mg/dL (74-106)
[2024-04-02 10:41] LABS: BILIRUBIN,DIRECT 0.2 mg/dL (0.0-0.2); CREATININE 0.9 mg/dL (0.55-1.3); SGOT/AST 16 U/L (15-37); SGPT/ALT 28 U/L (13-61)
[2024-04-02 10:43] LABS: BILIRUBIN,TOTAL 0.5 mg/dL (0.2-1); TOT PROT 6.8 g/dl (6.4-8.2)
[2024-04-02 10:44] LABS: ALK PHOS 154 U/L (45-117)
[2024-04-02] MEDS: DEXAMETHASONE INJECTION 40 MG in SODIUM CHLORIDE 50 ML IVPB ONE (10:57)
[2024-04-02] MEDS: BORTEZOMIB 2.5 MG/ML SUB-Q INJECTION SQ ONE (11:33)
[2024-04-02 16:02] VITALS: BP 127/62; PULSE 111; RESP 20; TEMP 98.4
== END 2024-04-02 12:00 | disposition home or self-care (01) ==
LOC: JONCCHEMO 09:24 → J7W 09:25 → JONCCHEMO 12:00
PROVIDERS: ATTEND Internal Medicine Hematology & Oncology
PROC: 3E01305 Introduction of Other Antineoplastic into Subcutaneous Tissue, Percutaneous Approach (ICD-10-PCS; principal; 2024-04-02)
PROC: 3E033GC Introduction of Other Therapeutic Substance into Peripheral Vein, Percutaneous Approach (ICD-10-PCS; 2024-04-02)
DX: Z51.11 Encounter for antineoplastic chemotherapy (principal); C90.00 Multiple myeloma not having achieved remission
CPT/HCPCS: 36415; 80048; 80076; 85025; 96374; 96401; J1100; J9041

== ENCOUNTER 2024-04-09 10:02 | Day surgery (SDC) | payer OTHER ==
[2024-04-09 10:55] VITALS: RESP 18
[2024-04-09 10:55] LABS: EOS % 0.8 % (0-4.5); HEMATOCRIT 21.2 % (32.4-45.2); LYMPH % 7.5 % (8-40); MCH 27.1 pg (25.7-33.7); MCHC 31.2 g/dl (32.0-36.0); MEAN CELL VOLUME 86.8 fl (80-96); MEAN PLT VOLUME 8.2 fl (7.5-11.1); MONO % 9.2 % (3.8-10.2); NEUT % 82.5 % (42.8-82.8); PLATELET COUNT 321 10^3/uL (134-434); RBC 2.44 M/mm3 (3.60-5.2); RDW 15.7 % (11.6-15.6); WHITE BLOOD COUNT 12.4 K/mm3 (4.0-10.0)
[2024-04-09 11:11] LABS: HEMOGLOBIN 6.6 GM/dL (10.7-15.3)
[2024-04-09 11:13] LABS: CHLORIDE 105 mmol/L (98-107); POTASSIUM 4.8 mmol/L (3.5-5.1); SODIUM 135 mmol/L (136-145)
[2024-04-09 11:15] LABS: ALBUMIN 2.4 g/dl (3.4-5.0); ANION GAP 7 mmol/L (4-13); BLOOD UREA NITROGEN 23.1 mg/dL (7-18); CALCIUM 8.7 mg/dL (8.5-10.1); CO2 23 mmol/L (21-32); GLUCOSE,RANDOM 293 mg/dL (74-106)
[2024-04-09 11:18] LABS: BILIRUBIN,DIRECT 0.1 mg/dL (0.0-0.2); CREATININE 1.1 mg/dL (0.55-1.3); SGOT/AST 6 U/L (15-37); SGPT/ALT 13 U/L (13-61)
[2024-04-09 11:20] LABS: BILIRUBIN,TOTAL 0.2 mg/dL (0.2-1); TOT PROT 6.5 g/dl (6.4-8.2)
[2024-04-09 11:21] LABS: ALK PHOS 163 U/L (45-117)
[2024-04-09] MEDS: ACETAMINOPHEN 325 MG TABLET (FP) PO ONE (16:28)
[2024-04-09] MEDS: DEXAMETHASONE SODIUM PHOSPHATE 40 MG, DIPHENHYDRAMINE 50 MG in SODIUM CHLORIDE 100 ML IVPB ONE (16:29)
[2024-04-09] MEDS: DARATUMUMAB-HYALURONIDASE-FIHJ (FASPRO) 15 ML VIAL SQ ONE (17:27)
[2024-04-09] MEDS: BORTEZOMIB 2.5 MG/ML SUB-Q INJECTION SQ ONE (17:33)
[2024-04-09 17:41] VITALS: BP 151/59; PULSE 98; TEMP 98.3
[2024-04-10 18:08] LABS: FREE KAPPA,SERUM 20.2 mg/L (3.3-19.4)
[2024-04-11 18:11] LABS: IG A QN SERUM. 42 mg/dL (87-352)
== END 2024-04-09 17:46 | disposition home or self-care (01) ==
LOC: J7W 10:02 → JONCCHEMO 10:02
PROVIDERS: ATTEND Internal Medicine Hematology & Oncology
PROC: 30233N1 Transfusion of Nonautologous Red Blood Cells into Peripheral Vein, Percutaneous Approach (ICD-10-PCS; principal; 2024-04-09)
PROC: 3E01305 Introduction of Other Antineoplastic into Subcutaneous Tissue, Percutaneous Approach (ICD-10-PCS; 2024-04-09)
PROC: 3E00X05 Introduction of Other Antineoplastic into Skin and Mucous Membranes, External Approach (ICD-10-PCS; 2024-04-09)
PROC: 3E0333Z Introduction of Anti-inflammatory into Peripheral Vein, Percutaneous Approach (ICD-10-PCS; 2024-04-09)
DX: Z51.11 Encounter for antineoplastic chemotherapy (principal); C90.00 Multiple myeloma not having achieved remission
CPT/HCPCS: 36415; 36430; 80048; 80076; 82784; 83883; 84155; 84165; 85025; 86850; 86870; 86880; 86900; 86901; 86902; 86922; 96365; 96401; J9041; J9144; P9058

== ENCOUNTER 2024-04-16 09:09 | Day surgery (SDC) | payer OTHER ==
[2024-04-16 10:47] LABS: BASO % 0.1 % (0-2.0); EOS % 0.6 % (0-4.5); HEMATOCRIT 23.3 % (32.4-45.2); HEMOGLOBIN 7.5 GM/dL (10.7-15.3); LYMPH % 10.5 % (8-40); MCH 27.5 pg (25.7-33.7); MCHC 32.1 g/dl (32.0-36.0); MEAN CELL VOLUME 85.8 fl (80-96); MEAN PLT VOLUME 8.1 fl (7.5-11.1); MONO % 13.3 % (3.8-10.2); NEUT % 75.5 % (42.8-82.8); PLATELET COUNT 273 10^3/uL (134-434); RBC 2.71 M/mm3 (3.60-5.2); WHITE BLOOD COUNT 13.9 K/mm3 (4.0-10.0)
[2024-04-16 11:00] LABS: CHLORIDE 100 mmol/L (98-107); SODIUM 132 mmol/L (136-145)
[2024-04-16 11:02] LABS: ALBUMIN 2.3 g/dl (3.4-5.0); ANION GAP 9 mmol/L (4-13); CALCIUM 9.1 mg/dL (8.5-10.1); CO2 24 mmol/L (21-32); GLUCOSE,RANDOM 283 mg/dL (74-106)
[2024-04-16 11:05] LABS: BILIRUBIN,DIRECT 0.2 mg/dL (0.0-0.2); CREATININE 1.2 mg/dL (0.55-1.3); SGOT/AST 27 U/L (15-37); SGPT/ALT 30 U/L (13-61)
[2024-04-16 11:07] LABS: BILIRUBIN,TOTAL 0.4 mg/dL (0.2-1); TOT PROT 6.2 g/dl (6.4-8.2)
[2024-04-16 11:08] LABS: ALK PHOS 141 U/L (45-117)
[2024-04-16] MEDS: DEXAMETHASONE INJECTION 40 MG in SODIUM CHLORIDE 50 ML IVPB ONE (12:34)
[2024-04-16] MEDS: BORTEZOMIB 2.5 MG/ML SUB-Q INJECTION SQ ONE (13:09)
[2024-04-16 17:15] VITALS: BP 112/69; PULSE 92; RESP 20; TEMP 97.4
== END 2024-04-16 13:20 | disposition home or self-care (01) ==
LOC: JONCCHEMO 09:09 → J7W 09:10 → JONCCHEMO 13:20
PROVIDERS: ATTEND Internal Medicine Hematology & Oncology
PROC: 3E01305 Introduction of Other Antineoplastic into Subcutaneous Tissue, Percutaneous Approach (ICD-10-PCS; principal; 2024-04-16)
PROC: 3E033GC Introduction of Other Therapeutic Substance into Peripheral Vein, Percutaneous Approach (ICD-10-PCS; 2024-04-16)
DX: Z51.11 Encounter for antineoplastic chemotherapy (principal); C90.00 Multiple myeloma not having achieved remission
CPT/HCPCS: 36415; 80048; 80076; 85025; 96374; 96401; J1100; J9041

== ENCOUNTER 2024-04-30 11:00 | Inpatient (IN) | payer OTHER ==
[2024-04-30 11:14] VITALS: BMI 20.9
[2024-04-30] MEDS ORDERED: MORPHINE SULFATE 2 MG/ML SYRINGE ONE ×2 (14:45→22:19)
[2024-04-30] MEDS ORDERED: ACETAMINOPHEN INJECTION 100 ML ONE (14:45)
[2024-04-30] MEDS: ACETAMINOPHEN 1000 MG/100 ML BAG IVPB ONE (15:01)
[2024-04-30] MEDS: morphine SULFATE 4 MG/ML VIAL IVPUSH ONE (15:01)
[2024-04-30 15:05] LABS: BASO % 0.4 % (0-2.0); EOS % 0.7 % (0-4.5); HEMATOCRIT 25.9 % (32.4-45.2); HEMOGLOBIN 8.6 GM/dL (10.7-15.3); LYMPH % 9.3 % (8-40); MCH 29.1 pg (25.7-33.7); MEAN CELL VOLUME 88.2 fl (80-96); MEAN PLT VOLUME 7.2 fl (7.5-11.1); MONO % 13.8 % (3.8-10.2); NEUT % 75.8 % (42.8-82.8); PLATELET COUNT 346 10^3/uL (134-434); RBC 2.94 M/mm3 (3.60-5.2); RDW 15.7 % (11.6-15.6); WHITE BLOOD COUNT 11.1 K/mm3 (4.0-10.0)
[2024-04-30 15:23] LABS: POTASSIUM 5.5 mmol/L (3.5-5.1)
[2024-04-30 15:25] LABS: ALBUMIN 2.2 g/dl (3.4-5.0); CALCIUM 9.3 mg/dL (8.5-10.1)
[2024-04-30 15:26] LABS: BLOOD UREA NITROGEN 30.4 mg/dL (7-18)
[2024-04-30 15:29] LABS: CREATININE 0.8 mg/dL (0.55-1.3)
[2024-04-30 15:30] LABS: BILIRUBIN,TOTAL 0.4 mg/dL (0.2-1); TOT PROT 6.4 g/dl (6.4-8.2)
[2024-04-30 21:14] LABS: EPI CELLS 5 /uL (0-25.1); HYALINE CASTS 1 /uL (0-3.1); URINE APPEARANCE CLEAR; URINE BACTERIA 254 /uL (0-1359); URINE BILIRUBIN NEGATIVE (NEGATIVE); URINE COLOR YELLOW; URINE GLUCOSE (UA) NEGATIVE (NEGATIVE); URINE KETONE NEGATIVE (NEGATIVE); URINE LEUK ESTERASE 2+ (NEGATIVE); URINE NITRITE NEGATIVE (NEGATIVE); URINE PROTEIN 1+ (NEGATIVE); URINE RBC 18 /uL (0-23.9); URINE UROBILINOGEN 0.2 mg/dL (0.2-1.0); URINE WBC 267 /uL (0-25.8)
[2024-04-30] MEDS: SODIUM CHLORIDE 0.9% 500 ML INFUS.BAG IV ONE (22:17)
[2024-04-30] MEDS: MORPHINE SULFATE 2 MG/ML SYRINGE IVPUSH PRN (22:21)
[2024-05-01] MEDS: SODIUM ZIRCONIUM CYCLOSILICATE (LOKELMA) 5 GM PACKET PO ONE (01:30)
[2024-05-01] MEDS: MEROPENEM 1 GM in DEXTROSE 5%-WATER 100 ML IVPB ONE (01:38)
[2024-05-01] MEDS: INSULIN ASPART SLIDING SCALE (NOVOLOG) 1 VIAL SQ SCH (06:04)
[2024-05-01] MEDS: DEXTROSE 50%-WATER 25 GM/50 ML DISP.SYRIN IVPUSH ONE (08:06)
[2024-05-01] MEDS: INSULIN REGULAR HUMAN 100 UNITS/ML *VIAL IVPUSH ONE ×2 (08:06→08:07)
[2024-05-01 08:11] LABS: POTASSIUM 4.6 mmol/L (3.5-5.1)
[2024-05-01 08:15] LABS: ALBUMIN 2.1 g/dl (3.4-5.0); BLOOD UREA NITROGEN 21.3 mg/dL (7-18); MAGNESIUM 1.9 mg/dL (1.8-2.4)
[2024-05-01 08:16] LABS: HEMATOCRIT 24.6 % (32.4-45.2); HEMOGLOBIN 8.2 GM/dL (10.7-15.3); MCHC 33.1 g/dl (32.0-36.0); MEAN CELL VOLUME 87.6 fl (80-96); MEAN PLT VOLUME 7.9 fl (7.5-11.1); PLATELET COUNT 331 10^3/uL (134-434); RBC 2.81 M/mm3 (3.60-5.2); RDW 15.6 % (11.6-15.6); WHITE BLOOD COUNT 9.8 K/mm3 (4.0-10.0)
[2024-05-01 08:18] LABS: CREATININE 0.8 mg/dL (0.55-1.3); PHOSPHOROUS 3.9 mg/dL (2.5-4.9)
[2024-05-01 08:19] LABS: BILIRUBIN,TOTAL 0.4 mg/dL (0.2-1)
[2024-05-01] MEDS: GABAPENTIN 300 MG CAPSULE PO SCH (10:23)
[2024-05-01] MEDS: ENOXAPARIN NA (PORCINE) 40 MG/0.4 ML DISP.SYRIN SQ SCH (10:27)
[2024-05-01] MEDS: cloNIDine HCL 0.1 MG TABLET PO SCH (10:34)
[2024-05-01] MEDS: FERROUS SO4 325 MG TABLET (FP) PO SCH (15:26)
[2024-05-01] MEDS ORDERED: ACETAMINOPHEN 1000 MG/100 ML BAG IVPB PRN (19:36)
[2024-05-01] MEDS ORDERED: IBUPROFEN 400 MG TABLET (FP) PO PRN (19:40)
[2024-05-01] MEDS: IBUPROFEN 400 MG TABLET (FP) PO ONE (20:09)
[2024-05-01] MEDS ORDERED: ATORVASTATIN CA 20 MG TABLET (FP) PO SCH (22:00)
[2024-05-02] MEDS ORDERED: INSULIN ASPART SLIDING SCALE (NOVOLOG) 1 VIAL SQ ONE (08:23)
[2024-05-02] MEDS: PANTOPRAZOLE 40 MG TABLET PO SCH (16:45)
[2024-05-02] MEDS: LACTATED RINGERS SOLUTION 1,000 ML/1,000 ML INFUS.BAG IV SCH (18:49)
[2024-05-03] MEDS: ACETAMINOPHEN 325 MG TABLET (FP) PO PRN (03:11)
[2024-05-03] MEDS: POLYETHYLENE GLYCOL (HEALTHYLAX) 3350 17 GM PACKET PO SCH (09:10)
[2024-05-03 09:24] LABS: BASO % 0.5 % (0-2.0); EOS % 0.7 % (0-4.5); HEMATOCRIT 26.3 % (32.4-45.2); MCH 29.9 pg (25.7-33.7); MEAN CELL VOLUME 87.8 fl (80-96); MEAN PLT VOLUME 7.9 fl (7.5-11.1); MONO % 15.9 % (3.8-10.2); NEUT % 69.9 % (42.8-82.8); PLATELET COUNT 359 10^3/uL (134-434); RDW 15.4 % (11.6-15.6); WHITE BLOOD COUNT 10.9 K/mm3 (4.0-10.0)
[2024-05-03 09:41] LABS: POTASSIUM 4.7 mmol/L (3.5-5.1)
[2024-05-03 09:43] LABS: CALCIUM 9.7 mg/dL (8.5-10.1)
[2024-05-03 09:44] LABS: ALBUMIN 2.3 g/dl (3.4-5.0)
[2024-05-03 09:47] LABS: CREATININE 0.9 mg/dL (0.55-1.3)
[2024-05-03 09:49] LABS: BILIRUBIN,TOTAL 0.5 mg/dL (0.2-1); TOT PROT 6.7 g/dl (6.4-8.2)
[2024-05-03] MEDS ORDERED: INSULIN ASPART SLIDING SCALE (NOVOLOG) 1 VIAL SQ ONE ×3 (11:49→22:09)
[2024-05-03] MEDS: PIPERACILLIN/TAZOB 4.5 GM 4.5 GM in DEXTROSE 5%-WATER 100 ML IVPB SCH (19:02)
[2024-05-04 07:31] LABS: HEMOGLOBIN 7.5 GM/dL (10.7-15.3); MCH 29.2 pg (25.7-33.7); MCHC 32.7 g/dl (32.0-36.0); MEAN CELL VOLUME 89.3 fl (80-96); MEAN PLT VOLUME 7.6 fl (7.5-11.1); PLATELET COUNT 312 10^3/uL (134-434); RBC 2.58 M/mm3 (3.60-5.2); RDW 15.1 % (11.6-15.6); WHITE BLOOD COUNT 9.8 K/mm3 (4.0-10.0)
[2024-05-04 07:40] LABS: INR 1.37 (0.83-1.09); PROTHROMBIN TIME (PATIENT) 15.6 SEC (9.7-13.0)
[2024-05-04 07:48] LABS: POTASSIUM 4.1 mmol/L (3.5-5.1)
[2024-05-04 07:51] LABS: CALCIUM 9.3 mg/dL (8.5-10.1); MAGNESIUM 1.9 mg/dL (1.8-2.4)
[2024-05-04 07:55] LABS: BILIRUBIN,TOTAL 0.4 mg/dL (0.2-1); TOT PROT 5.9 g/dl (6.4-8.2)
[2024-05-04 07:59] LABS: PHOSPHOROUS 4.5 mg/dL (2.5-4.9)
[2024-05-04] MEDS ORDERED: INSULIN ASPART SLIDING SCALE (NOVOLOG) 1 VIAL SQ ONE (11:54)
[2024-05-04] MEDS: PIPERACILLIN/TAZOB 4.5 GM 4.5 GM/100 ML BAG IVPB SCH (18:06)
[2024-05-05 09:05] LABS: BASO % 0.4 % (0-2.0); EOS % 1.1 % (0-4.5); HEMATOCRIT 23.3 % (32.4-45.2); HEMOGLOBIN 7.7 GM/dL (10.7-15.3); LYMPH % 13.4 % (8-40); MCH 29.2 pg (25.7-33.7); MCHC 33.1 g/dl (32.0-36.0); MEAN CELL VOLUME 88.3 fl (80-96); MEAN PLT VOLUME 7.9 fl (7.5-11.1); MONO % 14.4 % (3.8-10.2); NEUT % 70.7 % (42.8-82.8); PLATELET COUNT 321 10^3/uL (134-434); RBC 2.64 M/mm3 (3.60-5.2); RDW 15.4 % (11.6-15.6); WHITE BLOOD COUNT 8.9 K/mm3 (4.0-10.0)
[2024-05-05 09:15] LABS: POTASSIUM 4.7 mmol/L (3.5-5.1)
[2024-05-05 09:18] LABS: BLOOD UREA NITROGEN 23.4 mg/dL (7-18); CALCIUM 9.7 mg/dL (8.5-10.1); MAGNESIUM 1.9 mg/dL (1.8-2.4)
[2024-05-05 09:23] LABS: BILIRUBIN,TOTAL 0.5 mg/dL (0.2-1); CREATININE 0.9 mg/dL (0.55-1.3)
[2024-05-05] MEDS ORDERED: INSULIN ASPART SLIDING SCALE (NOVOLOG) 1 VIAL SQ ONE ×2 (11:53→17:08)
[2024-05-05] MEDS: ACETAMINOPHEN 500 MG TABLET (FP) PO PRN (22:00)
[2024-05-06 09:54] LABS: BASO % 0.3 % (0-2.0); EOS % 0.8 % (0-4.5); HEMATOCRIT 23.3 % (32.4-45.2); HEMOGLOBIN 7.7 GM/dL (10.7-15.3); LYMPH % 9.4 % (8-40); MCH 29.3 pg (25.7-33.7); MCHC 33.2 g/dl (32.0-36.0); MEAN CELL VOLUME 88.3 fl (80-96); MEAN PLT VOLUME 7.6 fl (7.5-11.1); MONO % 11.3 % (3.8-10.2); NEUT % 78.2 % (42.8-82.8); PLATELET COUNT 333 10^3/uL (134-434); RBC 2.64 M/mm3 (3.60-5.2); WHITE BLOOD COUNT 10.8 K/mm3 (4.0-10.0)
[2024-05-06 10:11] LABS: POTASSIUM 4.1 mmol/L (3.5-5.1)
[2024-05-06 10:13] LABS: CALCIUM 9.4 mg/dL (8.5-10.1)
[2024-05-06 10:14] LABS: ALBUMIN 2.1 g/dl (3.4-5.0)
[2024-05-06 10:19] LABS: BILIRUBIN,TOTAL 0.4 mg/dL (0.2-1); TOT PROT 6.2 g/dl (6.4-8.2)
[2024-05-07 10:46] LABS: HEMOGLOBIN 7.6 GM/dL (10.7-15.3); MCHC 33.1 g/dl (32.0-36.0); MEAN CELL VOLUME 87.6 fl (80-96); MEAN PLT VOLUME 7.8 fl (7.5-11.1); PLATELET COUNT 350 10^3/uL (134-434); RBC 2.63 M/mm3 (3.60-5.2); RDW 15.7 % (11.6-15.6); WHITE BLOOD COUNT 10.4 K/mm3 (4.0-10.0)
[2024-05-07 11:04] LABS: CALCIUM 9.8 mg/dL (8.5-10.1); POTASSIUM 4.1 mmol/L (3.5-5.1)
[2024-05-07 11:05] LABS: ALBUMIN 2.1 g/dl (3.4-5.0); BLOOD UREA NITROGEN 17.7 mg/dL (7-18)
[2024-05-07 11:08] LABS: CREATININE 0.9 mg/dL (0.55-1.3)
[2024-05-07 11:10] LABS: BILIRUBIN,TOTAL 0.4 mg/dL (0.2-1); TOT PROT 6.3 g/dl (6.4-8.2)
[2024-05-08 08:58] LABS: BASO % 0.2 % (0-2.0); EOS % 1.1 % (0-4.5); HEMATOCRIT 19.8 % (32.4-45.2); LYMPH % 10.4 % (8-40); MCH 29.1 pg (25.7-33.7); MCHC 33.3 g/dl (32.0-36.0); MEAN CELL VOLUME 87.3 fl (80-96); MEAN PLT VOLUME 7.7 fl (7.5-11.1); MONO % 13.3 % (3.8-10.2); PLATELET COUNT 334 10^3/uL (134-434); RBC 2.27 M/mm3 (3.60-5.2); RDW 15.2 % (11.6-15.6); WHITE BLOOD COUNT 9.9 K/mm3 (4.0-10.0)
[2024-05-08 09:19] LABS: POTASSIUM 4.1 mmol/L (3.5-5.1)
[2024-05-08 09:22] LABS: HEMOGLOBIN 6.6 GM/dL (10.7-15.3)
[2024-05-08 09:33] LABS: CALCIUM 9.8 mg/dL (8.5-10.1)
[2024-05-08 09:34] LABS: ALBUMIN 1.9 g/dl (3.4-5.0); BLOOD UREA NITROGEN 19.3 mg/dL (7-18); MAGNESIUM 2.1 mg/dL (1.8-2.4)
[2024-05-08 09:37] LABS: CREATININE 0.9 mg/dL (0.55-1.3)
[2024-05-08 09:38] LABS: TOT PROT 5.8 g/dl (6.4-8.2)
[2024-05-08 09:39] LABS: BILIRUBIN,TOTAL 0.2 mg/dL (0.2-1)
[2024-05-08] MEDS: cloNIDine HCL 0.1 MG TABLET PO SCH (09:57)
[2024-05-08] MEDS: LIDOCAINE 5% TOPICAL PATCH TP SCH (15:06)
[2024-05-08] MEDS: SODIUM CHLORIDE 0.9% 500 ML INFUS.BAG IV ONE (16:13)
[2024-05-08] MEDS: LIDOCAINE PATCH REMOVAL MC SCH (22:11)
[2024-05-09 09:11] LABS: BASO % 0.3 % (0-2.0); EOS % 1.2 % (0-4.5); HEMATOCRIT 26.7 % (32.4-45.2); HEMOGLOBIN 8.9 GM/dL (10.7-15.3); LYMPH % 11.2 % (8-40); MCH 29.2 pg (25.7-33.7); MCHC 33.6 g/dl (32.0-36.0); MEAN CELL VOLUME 87.1 fl (80-96); MEAN PLT VOLUME 7.7 fl (7.5-11.1); MONO % 12.5 % (3.8-10.2); NEUT % 74.8 % (42.8-82.8); PLATELET COUNT 383 10^3/uL (134-434); RBC 3.06 M/mm3 (3.60-5.2); RDW 15.2 % (11.6-15.6); WHITE BLOOD COUNT 11.9 K/mm3 (4.0-10.0)
[2024-05-09 09:18] LABS: POTASSIUM 4.1 mmol/L (3.5-5.1)
[2024-05-09 09:21] LABS: CALCIUM 10.1 mg/dL (8.5-10.1)
[2024-05-09 09:22] LABS: ALBUMIN 2.1 g/dl (3.4-5.0); BLOOD UREA NITROGEN 18.3 mg/dL (7-18)
[2024-05-09 09:25] LABS: CREATININE 0.8 mg/dL (0.55-1.3)
[2024-05-09 09:27] LABS: BILIRUBIN,TOTAL 0.4 mg/dL (0.2-1); TOT PROT 6.2 g/dl (6.4-8.2)
[2024-05-09] MEDS ORDERED: INSULIN ASPART SLIDING SCALE (NOVOLOG) 1 VIAL SQ ONE ×2 (11:51→17:43)
[2024-05-10 09:24] VITALS: BP 132/65; PULSE 98; RESP 18; TEMP 98.2
[2024-05-10 09:36] LABS: BASO % 0.3 % (0-2.0); EOS % 0.8 % (0-4.5); HEMATOCRIT 25.5 % (32.4-45.2); HEMOGLOBIN 8.6 GM/dL (10.7-15.3); LYMPH % 11.6 % (8-40); MCH 29.2 pg (25.7-33.7); MCHC 33.5 g/dl (32.0-36.0); MEAN PLT VOLUME 7.8 fl (7.5-11.1); MONO % 11.5 % (3.8-10.2); NEUT % 75.8 % (42.8-82.8); PLATELET COUNT 355 10^3/uL (134-434); RBC 2.93 M/mm3 (3.60-5.2); RDW 15.1 % (11.6-15.6); WHITE BLOOD COUNT 11.8 K/mm3 (4.0-10.0)
[2024-05-10 09:51] LABS: POTASSIUM 4.4 mmol/L (3.5-5.1)
[2024-05-10 09:56] LABS: CALCIUM 9.7 mg/dL (8.5-10.1)
[2024-05-10 09:57] LABS: ALBUMIN 2.1 g/dl (3.4-5.0); BLOOD UREA NITROGEN 20.4 mg/dL (7-18)
[2024-05-10 10:00] LABS: CREATININE 0.8 mg/dL (0.55-1.3)
[2024-05-10 10:02] LABS: BILIRUBIN,TOTAL 0.4 mg/dL (0.2-1); TOT PROT 6.2 g/dl (6.4-8.2)
== END 2024-05-10 11:41 | DRG 343 ==
LOC: JER 11:00 → JERBED 18:29 → J7W 23:25 → OBSVTOIN 05-03 14:13
PROVIDERS: ADMIT Internal Medicine; ATTEND Nurse Practitioner Acute Care
PROC: 30233N1 Transfusion of Nonautologous Red Blood Cells into Peripheral Vein, Percutaneous Approach (ICD-10-PCS; principal; 2024-05-08)
DX: C79.51 Secondary malignant neoplasm of bone (principal); C90.00 Multiple myeloma not having achieved remission; K83.8 Other specified diseases of biliary tract; J98.11 Atelectasis; R82.71 Bacteriuria; G89.3 Neoplasm related pain (acute) (chronic); I10 Essential (primary) hypertension; E78.5 Hyperlipidemia, unspecified; E11.9 Type 2 diabetes mellitus without complications; R78.89 Finding of other specified substances, not normally found in blood; E87.5 Hyperkalemia; M81.0 Age-related osteoporosis without current pathological fracture; K57.90 Diverticulosis of intestine, part unspecified, without perforation or abscess without bleeding; R79.89 Other specified abnormal findings of blood chemistry; D64.9 Anemia, unspecified; J44.9 Chronic obstructive pulmonary disease, unspecified; R19.7 Diarrhea, unspecified
CPT/HCPCS: 0241U-QW; 36415; 36430; 71045-TC-FY; 71275-TC; 74177-TC; 74181-TC; 76700-TC; 80048; 80053; 81003; 82550; 82728; 82962; 83036; 83540; 83550; 83615; 83735; 84100; 84484; 85025; 85027; 85045; 85610; 86480; 86705; 86706; 86870; 86880; 86902; 86922; 87040; 87086; 87497; 87517; 87633; 87635; 93005; 93010; 93308; 97116-GP; 97162-GP; 99285-25; G0378; J0131; P9038; P9058; Q9967

== ENCOUNTER 2024-05-21 10:31 | Day surgery (SDC) | payer OTHER ==
[~2024-05-21 10:31] MED LIST changes: -ACETAMINOPHEN 325 MG TABLET (FP) PO ONE; +CARFILZOMIB IV ONE; +DEXAMETHASONE SODIUM PHOSPHATE 40 MG in SODIUM CHLORIDE 50 ML IVPB ONE; -DEXAMETHASONE SODIUM PHOSPHATE 40 MG, DIPHENHYDRAMINE 50 MG in SODIUM CHLORIDE 100 ML IVPB ONE; +DEXTROSE 5% IV ONE; +GRANISETRON HCL/PF 1 MG in SODIUM CHLORIDE 50 ML IVPB ONE; +SODIUM CHLORIDE 250 ML IV ONE; +WATER IV ONE
[2024-05-21 11:23] LABS: BASO % 0.2 % (0-2.0); EOS % 0.5 % (0-4.5); HEMATOCRIT 23.7 % (32.4-45.2); LYMPH % 10.7 % (8-40); MCH 29.4 pg (25.7-33.7); MCHC 33.7 g/dl (32.0-36.0); MEAN CELL VOLUME 87.3 fl (80-96); MEAN PLT VOLUME 7.9 fl (7.5-11.1); MONO % 10.1 % (3.8-10.2); NEUT % 78.5 % (42.8-82.8); PLATELET COUNT 380 10^3/uL (134-434); RBC 2.71 M/mm3 (3.60-5.2); WHITE BLOOD COUNT 12.4 K/mm3 (4.0-10.0)
[2024-05-21] MEDS: SODIUM CHLORIDE 250 ML IV ONE (11:35)
[2024-05-21 11:43] LABS: POTASSIUM 4.9 mmol/L (3.5-5.1)
[2024-05-21 11:45] LABS: CALCIUM 10.2 mg/dL (8.5-10.1)
[2024-05-21 11:46] LABS: ALBUMIN 2.2 g/dl (3.4-5.0); BLOOD UREA NITROGEN 24.8 mg/dL (7-18)
[2024-05-21 11:48] LABS: BILIRUBIN,DIRECT 0.2 mg/dL (0.0-0.2)
[2024-05-21 11:49] LABS: CREATININE 0.9 mg/dL (0.55-1.3)
[2024-05-21 11:50] LABS: BILIRUBIN,TOTAL 0.4 mg/dL (0.2-1); TOT PROT 6.4 g/dl (6.4-8.2)
[2024-05-21] MEDS: DEXAMETHASONE 4 MG TABLET (FP) PO ONE (13:12)
[2024-05-21] MEDS: GRANISETRON HCL/PF 1 MG in SODIUM CHLORIDE 50 ML IVPB ONE (13:12)
[2024-05-21] MEDS: ACETAMINOPHEN 325 MG TABLET (FP) PO ONE (13:12)
[2024-05-21] MEDS: diphenhydrAMINE HCL 25 MG CAPSULE (FP) PO ONE (13:13)
[2024-05-21] MEDS: WATER IV ONE (14:05)
[2024-05-21] MEDS: CARFILZOMIB IV ONE (14:05)
[2024-05-21] MEDS: DEXTROSE 5% IV ONE (14:05)
[2024-05-21] MEDS: DARATUMUMAB-HYALURONIDASE-FIHJ (FASPRO) 15 ML VIAL SQ ONE (14:45)
[2024-05-21 15:29] VITALS: RESP 20; TEMP 97.8
[2024-05-21 15:47] VITALS: BP 104/52; PULSE 84
[2024-05-23 12:14] LABS: KAPPA LAMBDA RATIO URIN 0.02 (1.83-14.26)
[2024-05-23 18:08] LABS: IG A QN SERUM. 62 mg/dL (87-352)
== END 2024-05-21 15:30 | disposition home or self-care (01) ==
LOC: JONCCHEMO 10:31 → J7W 10:39 → JONCCHEMO 15:30
PROVIDERS: ATTEND Internal Medicine Hematology & Oncology
DX: Z51.11 Encounter for antineoplastic chemotherapy (principal); C90.00 Multiple myeloma not having achieved remission
CPT/HCPCS: 36415; 80048; 80076; 82784; 83883; 84155; 84165; 85025; 96375; 96401; 96413; J9047; J9144

== ENCOUNTER 2024-06-04 11:43 | Day surgery (SDC) | payer OTHER ==
[~2024-06-04 11:43] MED LIST changes: +DEXAMETHASONE 4 MG TABLET (FP) PO ONE; -DEXAMETHASONE SODIUM PHOSPHATE 40 MG in SODIUM CHLORIDE 50 ML IVPB ONE
[2024-06-04 12:14] LABS: BASO % 0.3 % (0-2.0); EOS % 1.4 % (0-4.5); HEMATOCRIT 22.5 % (32.4-45.2); HEMOGLOBIN 7.2 GM/dL (10.7-15.3); LYMPH % 6.3 % (8-40); MCH 28.2 pg (25.7-33.7); MEAN PLT VOLUME 7.3 fl (7.5-11.1); MONO % 8.9 % (3.8-10.2); NEUT % 83.1 % (42.8-82.8); PLATELET COUNT 360 10^3/uL (134-434); RBC 2.56 M/mm3 (3.60-5.2); RDW 14.6 % (11.6-15.6); WHITE BLOOD COUNT 11.8 K/mm3 (4.0-10.0)
[2024-06-04 12:54] LABS: CHLORIDE 100 mmol/L (98-107); POTASSIUM 5.1 mmol/L (3.5-5.1); SODIUM 132 mmol/L (136-145)
[2024-06-04 12:56] LABS: ALBUMIN 2.4 g/dl (3.4-5.0); ANION GAP 10 mmol/L (4-13); BLOOD UREA NITROGEN 38.6 mg/dL (7-18); CALCIUM 9.8 mg/dL (8.5-10.1); CO2 21 mmol/L (21-32); GLUCOSE,RANDOM 150 mg/dL (74-106)
[2024-06-04 12:59] LABS: BILIRUBIN,DIRECT 0.2 mg/dL (0.0-0.2); SGOT/AST 66 U/L (15-37); SGPT/ALT 101 U/L (13-61)
[2024-06-04] MEDS: SODIUM CHLORIDE 250 ML IV ONE (13:00)
[2024-06-04 13:01] LABS: BILIRUBIN,TOTAL 0.3 mg/dL (0.2-1); TOT PROT 6.8 g/dl (6.4-8.2)
[2024-06-04 13:02] LABS: ALK PHOS 165 U/L (45-117)
[2024-06-04] MEDS: GRANISETRON HCL/PF 1 MG in SODIUM CHLORIDE 50 ML IVPB ONE (13:58)
[2024-06-04] MEDS: DEXAMETHASONE 4 MG TABLET (FP) PO ONE (14:04)
[2024-06-04] MEDS: WATER IV ONE (14:41)
[2024-06-04] MEDS: DEXTROSE 5% IV ONE (14:41)
[2024-06-04] MEDS: CARFILZOMIB IV ONE (14:41)
[2024-06-04 17:01] VITALS: RESP 18; TEMP 98.9
[2024-06-04 17:06] VITALS: BP 92/40; PULSE 87
== END 2024-06-04 15:15 | disposition home or self-care (01) ==
LOC: JONCCHEMO 11:43 → J7W 12:18 → JONCCHEMO 15:15
PROVIDERS: ATTEND Internal Medicine Hematology & Oncology
DX: Z51.11 Encounter for antineoplastic chemotherapy (principal); C90.00 Multiple myeloma not having achieved remission
CPT/HCPCS: 36415; 80048; 80076; 85025; 96367; 96413; J9047

== ENCOUNTER 2024-06-18 10:29 | Day surgery (SDC) | payer OTHER ==
[2024-06-18] MEDS: SODIUM CHLORIDE 250 ML IV ONE (11:30)
[2024-06-18 11:31] LABS: BASO % 0.3 % (0-2.0); EOS % 4.9 % (0-4.5); HEMATOCRIT 23.1 % (32.4-45.2); HEMOGLOBIN 7.6 GM/dL (10.7-15.3); LYMPH % 10.8 % (8-40); MCH 28.3 pg (25.7-33.7); MCHC 32.7 g/dl (32.0-36.0); MEAN CELL VOLUME 86.5 fl (80-96); MEAN PLT VOLUME 7.3 fl (7.5-11.1); MONO % 10.1 % (3.8-10.2); NEUT % 73.9 % (42.8-82.8); PLATELET COUNT 291 10^3/uL (134-434); RBC 2.67 M/mm3 (3.60-5.2); RDW 15.3 % (11.6-15.6); WHITE BLOOD COUNT 7.8 K/mm3 (4.0-10.0)
[2024-06-18 11:52] LABS: CHLORIDE 105 mmol/L (98-107); SODIUM 137 mmol/L (136-145)
[2024-06-18 11:58] LABS: ALBUMIN 2.7 g/dl (3.4-5.0); ANION GAP 7 mmol/L (4-13); BLOOD UREA NITROGEN 17.5 mg/dL (7-18); CALCIUM 9.6 mg/dL (8.5-10.1); CO2 25 mmol/L (21-32); GLUCOSE,RANDOM 133 mg/dL (74-106)
[2024-06-18 12:00] LABS: BILIRUBIN,DIRECT 0.1 mg/dL (0.0-0.2); CREATININE 0.8 mg/dL (0.55-1.3); SGOT/AST 16 U/L (15-37); SGPT/ALT 31 U/L (13-61)
[2024-06-18 12:02] LABS: BILIRUBIN,TOTAL 0.2 mg/dL (0.2-1); TOT PROT 6.4 g/dl (6.4-8.2)
[2024-06-18] MEDS: GRANISETRON HCL/PF 1 MG in SODIUM CHLORIDE 50 ML IVPB ONE (12:08)
[2024-06-18] MEDS: ACETAMINOPHEN 325 MG TABLET (FP) PO ONE (12:09)
[2024-06-18] MEDS: diphenhydrAMINE HCL 25 MG CAPSULE (FP) PO ONE (12:09)
[2024-06-18] MEDS: DEXAMETHASONE 4 MG TABLET (FP) PO ONE (12:09)
[2024-06-18 12:17] LABS: ALK PHOS 132 U/L (45-117)
[2024-06-18] MEDS: DEXTROSE 5% IV ONE (13:08)
[2024-06-18] MEDS: WATER IV ONE (13:08)
[2024-06-18] MEDS: CARFILZOMIB IV ONE (13:08)
[2024-06-18] MEDS: DARATUMUMAB-HYALURONIDASE-FIHJ (FASPRO) 15 ML VIAL SQ ONE (13:46)
[2024-06-18 16:03] VITALS: RESP 18; TEMP 98.3
[2024-06-18 16:10] VITALS: BP 120/63; PULSE 87
[2024-06-19 19:06] LABS: FREE KAPPA,SERUM 20.5 mg/L (3.3-19.4)
[2024-06-20 14:07] LABS: FREE KAP CHN UR 32.32 mg/L (1.17-86.46); KAPPA LAMBDA RATIO URIN 0.01 (1.83-14.26)
[2024-06-20 18:06] LABS: IG A QN SERUM. 63 mg/dL (87-352)
== END 2024-06-18 14:00 ==
LOC: JONCCHEMO 10:29 → J7W 10:29 → JONCCHEMO 14:00
PROVIDERS: ATTEND Internal Medicine Hematology & Oncology
DX: Z51.11 Encounter for antineoplastic chemotherapy (principal); C90.00 Multiple myeloma not having achieved remission
CPT/HCPCS: 36415; 80048; 80076; 82784; 83883; 84155; 84165; 85025; 96375; 96401; 96413; J9047; J9144

== ENCOUNTER 2024-06-25 11:00 | Day surgery (SDC) | payer OTHER ==
[2024-06-25 11:32] LABS: BASO % 0.2 % (0-2.0); EOS % 3.6 % (0-4.5); HEMOGLOBIN 7.6 GM/dL (10.7-15.3); LYMPH % 13.3 % (8-40); MCH 28.8 pg (25.7-33.7); MCHC 33.1 g/dl (32.0-36.0); MEAN CELL VOLUME 87.1 fl (80-96); MEAN PLT VOLUME 7.6 fl (7.5-11.1); MONO % 17.5 % (3.8-10.2); NEUT % 65.4 % (42.8-82.8); PLATELET COUNT 290 10^3/uL (134-434); RBC 2.64 M/mm3 (3.60-5.2); RDW 15.7 % (11.6-15.6); WHITE BLOOD COUNT 8.2 K/mm3 (4.0-10.0)
[2024-06-25] MEDS: SODIUM CHLORIDE 250 ML IV ONE (11:35)
[2024-06-25 11:53] LABS: CHLORIDE 104 mmol/L (98-107); SODIUM 135 mmol/L (136-145)
[2024-06-25 11:55] LABS: ANION GAP 6 mmol/L (4-13); BLOOD UREA NITROGEN 26.7 mg/dL (7-18); CALCIUM 9.6 mg/dL (8.5-10.1); CO2 25 mmol/L (21-32); GLUCOSE,RANDOM 129 mg/dL (74-106)
[2024-06-25 11:58] LABS: BILIRUBIN,DIRECT 0.1 mg/dL (0.0-0.2); SGOT/AST 11 U/L (15-37); SGPT/ALT 20 U/L (13-61)
[2024-06-25 12:00] LABS: BILIRUBIN,TOTAL 0.3 mg/dL (0.2-1); TOT PROT 6.6 g/dl (6.4-8.2)
[2024-06-25 12:01] LABS: ALK PHOS 155 U/L (45-117)
[2024-06-25] MEDS: GRANISETRON HCL/PF 1 MG in SODIUM CHLORIDE 50 ML IVPB ONE (13:13)
[2024-06-25] MEDS: DEXAMETHASONE 4 MG TABLET (FP) PO ONE (13:13)
[2024-06-25] MEDS: CARFILZOMIB IV ONE (13:34)
[2024-06-25] MEDS: DEXTROSE 5% IV ONE (13:34)
[2024-06-25] MEDS: WATER IV ONE (13:34)
[2024-06-25 15:59] VITALS: BP 108/60; PULSE 74; RESP 20; TEMP 98.3
== END 2024-06-25 14:20 | disposition home or self-care (01) ==
LOC: JONCCHEMO 11:00 → J7W 11:03 → JONCCHEMO 14:20
PROVIDERS: ATTEND Internal Medicine Hematology & Oncology
DX: Z51.11 Encounter for antineoplastic chemotherapy (principal); C90.00 Multiple myeloma not having achieved remission
CPT/HCPCS: 36415; 80048; 80076; 85025; 96413; J9047

== ENCOUNTER 2024-07-02 10:58 | Day surgery (SDC) | payer OTHER ==
[2024-07-02 10:41] LABS: BASO % 0.3 % (0-2.0); EOS % 2.1 % (0-4.5); HEMATOCRIT 23.7 % (32.4-45.2); HEMOGLOBIN 7.5 GM/dL (10.7-15.3); LYMPH % 10.4 % (8-40); MCH 27.9 pg (25.7-33.7); MCHC 31.8 g/dl (32.0-36.0); MEAN CELL VOLUME 87.9 fl (80-96); MEAN PLT VOLUME 8.1 fl (7.5-11.1); MONO % 12.4 % (3.8-10.2); NEUT % 74.8 % (42.8-82.8); PLATELET COUNT 232 10^3/uL (134-434); RDW 16.5 % (11.6-15.6); WHITE BLOOD COUNT 11.6 K/mm3 (4.0-10.0)
[2024-07-02 11:08] LABS: POTASSIUM 4.6 mmol/L (3.5-5.1)
[2024-07-02 11:10] LABS: CALCIUM 9.6 mg/dL (8.5-10.1)
[2024-07-02 11:13] LABS: BILIRUBIN,DIRECT 0.1 mg/dL (0.0-0.2)
[2024-07-02 11:15] LABS: BILIRUBIN,TOTAL 0.3 mg/dL (0.2-1); CREATININE 0.8 mg/dL (0.55-1.3); TOT PROT 6.4 g/dl (6.4-8.2)
[2024-07-02] MEDS: SODIUM CHLORIDE 250 ML IV ONE (11:31)
[2024-07-02] MEDS: DEXAMETHASONE 4 MG TABLET (FP) PO ONE (11:31)
[2024-07-02] MEDS: GRANISETRON HCL/PF 1 MG in SODIUM CHLORIDE 50 ML IVPB ONE (11:33)
[2024-07-02] MEDS: CARFILZOMIB IV ONE (11:54)
[2024-07-02] MEDS: WATER IV ONE (11:54)
[2024-07-02] MEDS: DEXTROSE 5% IV ONE (11:54)
[2024-07-02 14:39] VITALS: RESP 18; TEMP 97.9
[2024-07-02 16:06] VITALS: BP 118/64; PULSE 88
== END 2024-07-02 13:00 | disposition home or self-care (01) ==
LOC: J7W 10:58 → JONCCHEMO 10:58
PROVIDERS: ATTEND Internal Medicine Hematology & Oncology
DX: Z51.11 Encounter for antineoplastic chemotherapy (principal); C90.00 Multiple myeloma not having achieved remission
CPT/HCPCS: 36415; 80048; 80076; 85025; 96375; 96413; J9047

== ENCOUNTER 2024-09-26 09:16 | Day surgery (SDC) | payer OTHER ==
[2024-09-26] MEDS: SODIUM CHLORIDE 250 ML IV ONE (10:08)
[2024-09-26 10:12] LABS: ABSOLUTE IMMATURE GRANULOCYTES 0.05 x10^3/uL (0.0-0.031); BASOPHILS # 0.01 x10^3/uL (0.01-0.08); EOSINOPHIL % 0.1 % (0.7-5.8); EOSINOPHILS # 0.01 x10^3/uL (0.04-0.36); HEMATOCRIT 31.5 % (34.1-44.9); HEMOGLOBIN 10.3 g/dL (11.2-15.7); MCHC 32.7 g/dl (32.2-35.5); MEAN CELL VOLUME 88.5 fl (79.4-94.8); MEAN PLT VOLUME 9.5 fl (9.4-12.3); MONOCYTE # 0.86 x10^3/uL (0.24-0.86); MONOCYTE % 7.3 % (4.7-12.5); PLATELET COUNT 247 x10^3/uL (182-369); RDW 18.8 % (12.4-16.4)
[2024-09-26 10:37] LABS: CHLORIDE 108 mmol/L (98-107); POTASSIUM 5.5 mmol/L (3.5-5.1); SODIUM 136 mmol/L (136-145)
[2024-09-26 10:38] LABS: ANION GAP 9 mmol/L (4-13); CALCIUM 9.2 mg/dL (8.5-10.1); CO2 19 mmol/L (21-32); GLUCOSE,RANDOM 80 mg/dL (74-106)
[2024-09-26 10:40] LABS: ALBUMIN 2.8 g/dl (3.4-5.0); BLOOD UREA NITROGEN 35.2 mg/dL (7-18)
[2024-09-26 10:42] LABS: BILIRUBIN,DIRECT 0.2 mg/dL (0.0-0.2); CREATININE 1.2 mg/dL (0.55-1.3)
[2024-09-26 10:45] LABS: BILIRUBIN,TOTAL 0.5 mg/dL (0.2-1)
[2024-09-26] MEDS: GRANISETRON HCL/PF 1 MG in SODIUM CHLORIDE 50 ML IVPB ONE (10:54)
[2024-09-26] MEDS: diphenhydrAMINE HCL 25 MG CAPSULE (FP) PO ONE (10:55)
[2024-09-26] MEDS: DEXAMETHASONE 4 MG TABLET (FP) PO ONE (10:55)
[2024-09-26] MEDS: ACETAMINOPHEN 325 MG TABLET (FP) PO ONE (11:10)
[2024-09-26] MEDS: DARATUMUMAB-HYALURONIDASE-FIHJ (FASPRO) 15 ML VIAL SQ ONE (12:06)
[2024-09-26] MEDS: ZOLEDRONIC ACID 3 MG in SODIUM CHLORIDE 100 ML IVPB ONE (12:07)
[2024-09-26 15:52] VITALS: BP 82/54; PULSE 100; RESP 20; TEMP 97.4
[2024-09-28 17:06] LABS: FREE KAPPA,SERUM 11.8 mg/L (3.3-19.4)
[2024-09-30 19:06] LABS: IG A QN SERUM. 28 mg/dL (87-352)
== END 2024-09-26 13:05 | disposition home or self-care (01) ==
LOC: JONCCHEMO 09:16 → J7W 09:17 → JONCCHEMO 13:05
PROVIDERS: ATTEND Internal Medicine Hematology & Oncology
PROC: 3E03305 Introduction of Other Antineoplastic into Peripheral Vein, Percutaneous Approach (ICD-10-PCS; principal; 2024-09-26)
PROC: 3E0337Z Introduction of Electrolytic and Water Balance Substance into Peripheral Vein, Percutaneous Approach (ICD-10-PCS; 2024-09-26)
PROC: 3E01305 Introduction of Other Antineoplastic into Subcutaneous Tissue, Percutaneous Approach (ICD-10-PCS; 2024-09-26)
DX: Z51.11 Encounter for antineoplastic chemotherapy (principal); C90.00 Multiple myeloma not having achieved remission
CPT/HCPCS: 36415; 80048; 80076; 82784; 83883; 84155; 84165; 85025; 96367; 96401; 96413; J3489; J9047; J9144